=== PATIENT | male | born 1945 ===

== ENCOUNTER 2020-09-26 12:23 | Inpatient (IN) | payer MEDICARE, OTHER, MEDICAID ==
[2020-09-26] MEDS ORDERED: Acetaminophen/Diphenhydramine 500-25 MG Tab PO PRN (16:17)
[2020-09-26] MEDS ORDERED: Nitroglycerin 0.4 MG Tab.SL SL PRN (16:17)
[2020-09-26] MEDS ORDERED: Albuterol HFA 18 Gm Inhaler INH PRN (16:43)
[2020-09-26] MEDS: OMEPRAZOLE 40 MG PO SCH (17:29)
[2020-09-26] MEDS: Furosemide 20 MG Tab (OWN SUPPLY) PO SCH (17:30)
[2020-09-26] MEDS: CARVEDILOL 12.5 MG PO SCH (17:30)
[2020-09-26] MEDS: Albuterol/Ipratropium 3.0-0.5 MG/3 ML Neb Soln NEB SCH (20:25)
[2020-09-26] MEDS: Cefuroxime 250 MG Tab PO SCH (20:25)
[2020-09-26] MEDS: Calcium Carbonate 750 MG Tab.Chew PO SCH (20:26)
[2020-09-26] MEDS: BUDESONIDE 0.5 MG/2 ML NEB SCH (20:32)
[2020-09-26] MEDS: FORMOTEROL 20 MCG/2 ML SCH (20:33)
--- NOTE | 2020-09-26 23:34 | HP ---
CHIEF COMPLAINT: Post hospital admission for weakness. HISTORY OF PRESENT ILLNESS: This 75 year-old male with 2 hospitalizations in the last couple of weeks was admitted originally on the through the testing positive for COVID on the , but felt to be asymptomatic with his shortness of breath attributed more to acute anemia and likely lung cancer. The patient's blood thinners were discontinued. He was discharged home, but he kept falling, and then he was readmitted on the , and discharged today with acute respiratory failure with hypoxia. He is chronically on at least 2 L of oxygen at home in exacerbation of COPD. The patient was treated with steroids and nebs. He is back down to just 4 L of oxygen. He is not having any worsening of cough. No chest pain. He does have a lung mass for which he has refused biopsy, but PET scan the end of June showed a 2.5 x 1.7 cm mass with additional mass concerning for malignancy. This is in the right lower lobe. The patient did receive a unit of blood yesterday. His hemoglobin was in the 6 range. Today, it was 8.9. He has not noticed any blood in his stools. He was not felt to be a candidate for EGD or colonoscopy due to his health conditions and respiratory status. The patient otherwise was considering hospice. His son is at the bedside for our conversation. ALLERGIES: Include codeine, Nicorette, and Valium. MEDICATIONS: Include lisinopril 5 mg daily; Coreg 6.25 b.i.d.; Ceftin 500 twice daily for 1 more day; prednisone 20 mg for 5 days, 10 for 5 days, then 5 for the next 2 days, then 2.5 daily, which he is on chronically; Prilosec 40 mg twice daily; digoxin 0.125 daily; Lasix 20 mg b.i.d.; nitro as needed for chest pain; Crestor 20 mg at bedtime; albuterol inhaler as needed; DuoNebs; Pulmicort neb; Perforomist neb; Coricidin; Aspercreme; Tylenol p.r.n.; oxygen 2 to 3 L chronically; milk of magnesia every other day; multivitamins. PAST MEDICAL HISTORY: AFib, chronic; end-stage COPD, likely lung cancer, declining further workup and treatment; heart failure, EF 40% back in 06/2020, no acute exacerbation; chronic kidney disease stage 3; chronic hypoxic respiratory failure; history of CO2 narcosis on a ventilator at night; coronary artery disease; [place] back in 1999, reported to have 3 cardioverter defibrillators implanted with ischemic cardiomyopathy; essential hypertension; history of pulmonary embolism remotely after a foot surgery; previous smoking; TIA. PAST SURGICAL HISTORY: The patient has surgically had left foot surgery for fracture, eye surgery, colonoscopies in the past, ICD implanted. FAMILY HISTORY: Parents are . SOCIAL HISTORY: The patient is . He has I believe 5 children. One son is present in the room. REVIEW OF SYSTEMS: General: The patient does feel weak. He feels like the prednisone makes him worse in weakness terms. Appears that his weight has basically stayed the same within a couple of pounds from last fall. HEENT: No trouble swallowing. No sore throat. Cardiac: No chest pain. Respiratory: He has had chronic cough and shortness of breath. No worsening there. Otherwise, all systems reviewed and found to be negative unless otherwise stated. PHYSICAL EXAMINATION: Vital Signs: His temperature 97.8, original pulse 103, repeat for 64, blood pressure 119/62, respiratory rate 20, and O2 of 91% on 4 L. General: He is in no acute distress. Heart: Irregularly irregular. Lungs: His lung sounds are decreased with rhonchi throughout, but no wheezing appreciated. Abdomen: Nondistended. Extremities: Warm and dry. He does have 1+ edema at the ankles, but he is declining support hose. Mental Status: He is alert and oriented x3. He is talking about going on a bear hunting trip in [place]. LABORATORY WORK: Again was reviewed from [place] today. His hemoglobin was up to 8.9 after transfusion yesterday. White count 12.4, platelets 281. Creatinine was 0.9, calcium 7.9. No albumin today. Suspect that is probably quite low, although last one was 3.6 earlier this week. ASSESSMENT: 1. Coronavirus disease 2019 infection. Really no increase or change in his symptoms. Admitted more for gastrointestinal bleed, but with recent chronic obstructive pulmonary disease exacerbation, he does not realize or know when his exposure might be. He is 10 days out from his positive test. I think we can take him out of isolation tomorrow. 2. Hypocalcemia. I am going to place him on some Tums twice daily. I think this would also help with any stomach discomfort. 3. Acute on chronic anemia. Source of his gastrointestinal bleeding is thought to be gastrointestinal, but not a candidate for further workup. Discussed with the patient we will not do any routine lab work. Could consider possible transfusion, but would not continue to do routine transfusions given goals of care comfort. The patient understands. Actually, he told me he was surprised they gave him blood in [place]. 4. Atrial fibrillation. Seems to be rate controlled. We will continue the current management. 5. Chronic obstructive pulmonary disease exacerbation. He will finish the Ceftin and his prednisone taper. 6. Coronary artery disease, ischemic cardiomyopathy. Implantable cardioverter defibrillator is in place. We will contact [facility] to see if any changes need to be made for that. 7. Chronic systolic heart failure, ejection fraction 40%. We will continue his Lasix. 8. Also reported transient ischemic attacks. He is now off anticoagulation. He is high risk for a stroke given his cancer and atrial fibrillation. Again, goals of care comfort. The patient is here for palliative cares. 9. Weakness and deconditioning. The patient is considering trying a PT trial. Decision with him and his son was to wait until next week. PLAN: The patient is admitted for skilled cares to assist with activities of daily living, bed transfers, bathing, eating as he needs. Anticipate his condition could worsen and he could pass away. Depending on how things go, discussed with his son just take it day to day. It could be months or if things change quickly. He understands and does not feel he can return home due to his weakness and frequent falls. DVT prophylaxis. The patient is not on any given his end of life and comfort care status. He is a code level 5, comfort cares. MKA: 09/26/2020 18:37:54 MODL: 09/26/2020 23:24:33 /[id number] MTDD
[2020-09-27] MEDS: OMEPRAZOLE 40 MG PO SCH ×2 (06:09→16:42)
[2020-09-27] MEDS: FORMOTEROL 20 MCG/2 ML SCH ×2 (06:11→20:08)
[2020-09-27] MEDS ORDERED: predniSONE 10 MG Tab PO SCH (08:00)
--- OUTSIDE RECORDS SUMMARY | 2020-09-27 08:49 | XMSREPORT ---
:1945 Author Organization [facility] Address [address] [place] [address] [address] [place] [address] Care Team Providers Name Role Phone Alisson Maynard PA-C Primary Care Provider Alisson Maynard PA-C Attributed Provider Emma Galeas MD Unavailable Alisson Maynard PA-C Home Health Attending [facility] Unavailable Reason for Visit Reason Comments Shortness of Breath Pt called EMS for increased SOB. EMS states oxygen saturation was 79% on 5L. Pt has lung cance r and 5L is his baseline. Pt on 98% on 10L on arrival. Auth/Cert Status Reason Specialty Diagnoses / Procedures Referred By Lydia dacosta Referred To Contact Encounter Details Date Type Department Care Team Description 09/22/2020 - Hospital Encounter [facility] n[facility] Department [address] [place] [address] [phone] Acute respiratory 09/26/2020 [place] Eliceo Rubio MD [address] [place] [address] [phone] failure with [place] Hodgson, Raoul Hidalgo MD [address] [place] [address] [phone] hypoxia (HCC) [address] Vanita García MD [address] [place] [address] [phone] [place] [address] Allergies Active Allergy Reactions Severity Noted Date Comments Codeine Nausea and Vomiting 06/26/2013 Commit Nausea and Vomiting 12/31/2018 Valium Nausea and Vomiting 06/26/2013 documented as of this encounter (statuses as of 09/26/2020) Medications Medication Sig Dispensed Refills Start End Status Date Date Multiple Take 1 tablet by 0 Act peyton Vitamins-Minerals mouth 1 time per (MULTIVITAMIN day THERAPEUTIC WITH MINERALS) tablet magnesium hydroxide Take 30 mL by 0 Active (MILK OF MAGNESIA) mouth Every 400 mg/5 mL oral other day suspension Oxygen therapy Inhale 2-3 L/min 0 Active orally continuously. acetaminophen Take 2 tablets 0 A ctive (TYLENOL) 500 mg (1,000 mg) by 9 tabletIndications: mouth Every 8 Closed fracture of hours as needed multiple ribs of for mild pain or both sides, initial moderate pain encounter diphenhydrAMINE-nasir Take 0.5 tablets 0 Active taminophen (TYLENOL by mouth at PM) 25-500 mg bedtime as tablet needed for insomnia DM-APAP-CPM Take 1 tablet by 0 A ctive (CORICIDIN HBP) mouth at bedtime 10-325-2 MG TABS as needed (congestion) trolamine Apply to neck 0 Active salicylate PRN aches (ASPERCREME) 10 % (topically) up CREA to 4 times daily digoxin (LANOXIN) Take 1 tablet 90 tablet 4 Active 0.125 mg (0.125 mg) by 0 021 tabletIndications: mouth 1 time per Chronic a-fib (HCC) day furosemide (LASIX) Take 1 tablet 180 tablet 4 Active 20 mg (20 mg) by mouth 0 021 tabletIndications: 2 times a day Chronic systolic Hold for SBP CHF (congestive less than 90 heart failure) (HCC) nitroglycerin Dissolve 1 30 tablet 4 Activ e (NITROSTAT) 0.4 mg tablet (0.4 mg) 0 sublingual under the tongue tabletIndications: Every 5 minutes Chest pain, as needed for unspecified type chest pain (up to 3 doses) rosuvastatin Take 1 tablet 90 tablet 4 Act peyton (CRESTOR) 20 mg (20 mg) by mouth 0 021 tabletIndications: every night at Chest pain, bedtime unspecified type albuterol HFA Inhale 2 puffs 3 g 4 A ctive (PROVENTIL,PROAIR,V orally Every 4 0 021 ENTOLIN) 108 (90 hours as needed Base) MCG/ACT for shortness of inhalerIndications: breath, wheezing COPD, very severe or cough Shake (HCC) well before using. albuterol-ipratropi Inhale 1 270 mL 4 Active um (DUO-NEB) unit-dose (3 mL) 0 021 2.5-0.5 mg/3 mL by nebulization inhalation every night at solutionIndications bedtime : COPD, very severe (HCC) budesonide Inhale 1 nebule 360 mL 4 Act peyton (PULMICORT) 0.5 (0.5 mg) by 0 021 mg/2 mL inhalation nebulization 2 solutionIndications times a day : COPD, very severe Rinse mouth (HCC) after use. formoterol Inhale 1 nebule 360 mL 4 Act peyton (PERFOROMIST) 20 (20 mcg) by 0 021 MCG/2ML inhalation nebulization 2 solutionIndications times a day : COPD, very severe (HCC) omeprazole Take 1 capsule 90 capsule 4 Act peyton (PRILOSEC) 40 mg (40 mg) by mouth 1 capsuleIndications: 2 times a day On continuous oral before meals anticoagulation ATTENTION: Please mail these to Monae olmstead. Thank you!!!!!!!!!!!!! !!!!!!!! lisinopril Take 1 tablet (5 90 tablet 4 Ac tive (PRINIVIL, ZESTRIL) mg) by mouth 1 1 022 5 mg time per day tabletIndications: Chronic systolic CHF (congestive heart failure) ([facility]) carVEDilol (COREG) Take 1 tablet 180 tablet 4 Active 6.25 mg (6.25 mg) by 1 022 tabletIndications: mouth 2 times a Chronic systolic day with meals CHF (congestive heart failure) ([facility]) cefuroxime (CEFTIN) Take 1 tablet 2 tablet 0 Active 500 mg (500 mg) by 1 021 tabletIndications: mouth 2 times a Acute respiratory day for 2 doses failure with hypoxia ([facility]) predniSONE 10 mg 20 mg daily for 0 Active tabletIndications: 5 days then 10 1 Acute respiratory mg daily for failure with next 5 days then hypoxia ([facility]) 5 mg daily for next 2 days then continue on 2.5 mg daily - home dose senior care carVEDilol (COREG) Take 1.5 tablets 270 tablet 4 26/09 Discontinued 12.5 mg (18.75 mg) by 0 021 (Stop Taking at tabletIndications: mouth 2 times a Discharge) Chronic a-fib day with meals ([facility]), Chronic For BP systolic CHF (congestive heart failure) ([facility]), Essential hypertension lisinopril Take 1 tablet 180 tablet 3 Disc ontinued (PRINIVIL, ZESTRIL) (10 mg) by mouth 0 021 (Stop Taking at 10 mg 2 times a day Discha rge) tabletIndications: Essential hypertension predniSONE 5 mg Take 0.5 tablets 45 tablet 4 Discontinued tabletIndications: (2.5 mg) by 0 021 (Stop Taking at Chronic systolic mouth 1 time per Discharge) CHF (congestive day heart failure) ([facility]), COPD, very severe ([facility]) documented as of this encounter (statuses as of 09/26/2020) Active Problems Problem Noted Date Acute exacerbation of chronic obstructive pulmonary di sease (COPD) 09/22/2020 GI bleed 09/16/2020 Acute respiratory failure with hypoxia 09/16/2020 Cancer of lung 09/16/2020 Chronic respiratory failure 09/16/2020 Pneumonia due to COVID-19 virus 09/16/2020 A-fib 06/20/2020 Chest pain 06/20/2020 On apixaban therapy 05/27/2020 Transient speech disturbance 05/24/2020 Transient visual disturbance, right 05/24/2020 Paroxysmal atrial fibrillation 04/05/2019 Acute blood loss anemia 04/01/2019 CO2 narcosis 04/01/2019 CKD (chronic kidney disease) stage 3, GFR 30-59 ml/min 04/01/2019 History of colon polyps 06/29/2018 Chronic a-fib 06/15/2018 Hypokalemia 06/15/2018 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 Treated in [place]. He de veloped ischemic cardiomyopathy after that. He has had a total of 3 cardioverter-def ibrillators implanted. The most recent was placed in 2014 in [place]. Disorder of lipoid metabolism 02/28/2007 Essential hypertension 02/28/2007 documented as of this encounter (statuses as of 09/26/2020) Resolved Problems Problem Noted Date Resolved Date Acute urinary retention 01/01/2019 04/01/2019 Hallucinations 12/31/2018 04/05/2019 Closed fracture of multiple ribs of right side with routine 08/19/2017 04/01/2019 healing Fall 08/19/2017 04/01/2019 SOB (shortness of breath) 08/19/2017 04/01/2019 Closed fracture of acromial end of right clavicle 08/19/2017 04/01/2019 Closed fracture of right wrist 08/19/2017 9 Trauma 08/18/2017 04/01/2019 Typical atrial flutter 07/07/2017 07/02/2020 Closed right humeral fracture 07/12/2013 09/30/2016 Alcohol abuse 07/05/2013 04/10/2019 documented as of this encounter (statuses as of 09/26/2020) Immunizations Name Administration Dates Next Due FLU VACCINE HIGH DOSE 65YR+(Fluzone) 05/15/2020 Influenza Vaccine 06/25/2017 Influenza Vaccine,unspecified 05/23/2019, 05/18/2018, 2016 Moderna COVID-19 Vaccine 09/11/2020 Pneumococcal Conj PCV13 09/19/2018 Pneumococcal Polysaccharide PPSV23 06/25/2017 documented as of this encounter Social History Tobacco Use Types Packs/Day Years Used Date Former Smoker Cigarettes 1 40 08/02/1965 - 2 017 Smokeless Tobacco: Former User Chew Q uit: 08/2009 Tobacco Cessation: Counseling Given: No Alcohol Use Drinks/Week oz/Week Comments Yes 1 Cans of beer 1.0 " I don't drink much anymore" Alcohol Habits Answer Date Recorded How often do you have a drink containing alcohol? Monthly or less 09/17/2020 How many drinks containing alcohol do you have on a 1 or 2 09/17/2020 typical day when you are drinking? How often do you have six or more drinks on one Less than mo nthly 09/17/2020 occasion? Physical Activity Answer Date Recorded On average, how many days per week do you engage in moderate to 3 days 08/25/2019 strenuous exercise (like walking fast, running, jogging, dancing, swimming, biking, or other activities that cause a light or heavy sweat)? On average, how many minutes do you engage in exercise at th is 30 min 08/25/2019 level? Sexually Active Control Partners Comments Not Currently Sex Assigned at Date Recorded Not on file documented as of this encounter Last Filed Vital Signs Vital Sign Reading Time Taken Comments Blood Pressure 87/54 09/26/2020 8:47 AM PROCESS ENGINEERING MANAGER Pulse 68 09/26/2020 8:47 AM PROCESS ENGINEERING MANAGER Temperature 36.7 C (98 F) 09/26/2020 8:47 AM PROCESS ENGINEERING MANAGER Respiratory Rate 19 09/26/2020 8:47 AM PROCESS ENGINEERING MANAGER Oxygen Saturation 98% 09/26/2020 8:47 AM PROCESS ENGINEERING MANAGER Inhaled Oxygen Concentration - - Weight 86.6 kg (191 lb) 09/22/2020 9:00 PM PROCESS ENGINEERING MANAGER Height 170.2 cm (5' 7.01") 09/22/2020 9:00 PM PROCESS ENGINEERING MANAGER Body Mass Index 29.91 09/22/2020 9:00 PM PROCESS ENGINEERING MANAGER documented in this encounter Functional Status Functional Status Response Date of Assessment Is the person deaf or does he/she have No 0 11/03/2017 serious difficulty hearing? Is this person blind or does he/she have Yes - blind in left eye 11/03/2017 difficulty seeing even when wearing glasses? Do you have difficulty with walking, Yes balance, climbing stairs, or had a fall in the last 3 months? Does this person have difficulty dressing Yes 09/23/2020 or bathing? Because of a physical, mental, or Yes 2018 emotional condition; does this person have difficulty doing errands alone such as visiting a doctor's office or shopping? Cognitive Status Response Date of Assessment Because of a physical, mental, or emotional condition; Yes 12/31/2018 does this person have serious difficulty concentrating, remembering, or making decisions? documented as of this encounter Discharge Summaries Not on filedocumented in this encounter Medications at Time of Discharge Medication Sig Dispensed Refills Start Date End Date lisinopril (PRINIVIL, Take 1 tablet (5 mg) 90 tablet 4 09/0310/01/2021 ZESTRIL) 5 mg by mouth 1 time per tabletIndications: day Chronic systolic CHF (congestive heart failure) (HCC) carVEDilol (COREG) 6.25 Take 1 tablet (6.25 180 tablet 4 10/01/2021 mg tabletIndications: mg) by mouth 2 times Chronic systolic CHF a day with meals (congestive heart failure) (HCC) cefuroxime (CEFTIN) 500 Take 1 tablet (500 2 tablet 0 09/0309/27/2020 mg tabletIndications: mg) by mouth 2 times Acute respiratory a day for 2 doses failure with hypoxia (HCC) predniSONE 10 mg 20 mg daily for 5 0 09/26/2020 tabletIndications: Acute days then 10 mg respiratory failure with daily for next 5 hypoxia (HCC) days then 5 mg daily for next 2 days then continue on 2.5 mg daily - 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 Thank you!!!!!!!!!!!!!!!!! !!!! digoxin (LANOXIN) 0.125 Take 1 tablet (0.125 90 tablet 4 07/07/2021 mg tabletIndications: mg) by mouth 1 time Chronic a-fib (HCC) per day furosemide (LASIX) 20 mg Take 1 tablet (20 180 tablet 4 08/201907/07/2021 tabletIndications: mg) by mouth 2 times Chronic systolic CHF a day Hold for SBP (congestive heart less than 90 failure) (HCC) nitroglycerin Dissolve 1 tablet 30 tablet 4 07/02/2020 (NITROSTAT) 0.4 mg (0.4 mg) under the sublingual tongue Every 5 tabletIndications: Chest minutes as needed pain, unspecified type for chest pain (up to 3 doses) rosuvastatin (CRESTOR) Take 1 tablet (20 90 tablet 4 201907/07/2021 20 mg tabletIndications: mg) by mouth every Chest pain, unspecified night at bedtime type albuterol HFA Inhale 2 puffs 3 g 4 07/02/2020 021 (PROVENTIL,PROAIR,VENTOL orally Every 4 hours IN) 108 (90 Base) as needed for MCG/ACT shortness of breath, inhalerIndications: wheezing or cough COPD, very severe (HCC) Shake well before using. albuterol-ipratropium Inhale 1 unit-dose 270 mL 4 201907/07/2021 (DUO-NEB) 2.5-0.5 mg/3 (3 mL) by mL inhalation nebulization every solutionIndications: night at bedtime COPD, very severe (HCC) budesonide (PULMICORT) Inhale 1 nebule (0.5 360 mL 4 08/201907/07/2021 0.5 mg/2 mL inhalation mg) by nebulization solutionIndications: 2 times a day Rinse COPD, very severe (HCC) mouth after use. formoterol (PERFOROMIST) Inhale 1 nebule (20 360 mL 4 07/07/2021 20 MCG/2ML inhalation mcg) by nebulization solutionIndications: 2 times a day COPD, very severe (HCC) diphenhydrAMINE-acetamin Take 0.5 tablets by 0 ophen (TYLENOL PM) mouth at bedtime as 25-500 mg tablet needed for insomnia DM-APAP-CPM (CORICIDIN Take 1 tablet by 0 HBP) 10-325-2 MG TABS mouth at bedtime as needed (congestion) trolamine salicylate Apply to neck PRN 0 (ASPERCREME) 10 % CREA aches (topically) up to 4 times daily acetaminophen (TYLENOL) Take 2 tablets 0 04/21/20 19 500 mg (1,000 mg) by mouth tabletIndications: Every 8 hours as Closed fracture of needed for mild pain multiple ribs of both or moderate pain sides, initial encounter Oxygen therapy Inhale 2-3 L/min 0 orally continuously. magnesium hydroxide Take 30 mL by mouth 0 (MILK OF MAGNESIA) 400 Every other day mg/5 mL oral suspension Multiple Take 1 tablet by 0 Vitamins-Minerals mouth 1 time per day (MULTIVITAMIN THERAPEUTIC WITH MINERALS) tablet documented as of this encounter Progress Notes Vanita García MD - 09/25/2020 1:08 PM CST Hospital Progress Note Sarai Patton is a 75yr old male admitted on 09/22/2020. Assessment / Plan Sarai is a 75-year-old male with long history of nicotine dependence, end-stage COPD, chronic hypoxemic and hypercapnic respiratory failure on 2 to 3 L of oxygen at baseline and astral ventilator at nighttime, congestive heart failure,recently diagnosed with likely stage III lung cancer for which he re fused any diagnostic/treatment modality, recent hospitalization for Covid pneumonia and anemia, was refused EGD and colonoscopy as a poor candidate for sedation/intubation, history of A. fib and PE, currently of apixaban therapy since recent hospitalization, hypertension who was recently discharged from the hospital on 5 L oxygen on 09/20, returned to ER on 09/22 with worsening shortness of breath and acute on chronic hypoxic respiratory failure requiring up to 10 L oxygen There was not much fluctuation from the recent hemoglobin on admission, BNP was actually lower, procalcitonin was unremarkable and patient was admitted for presumed COPD exacerbation and started on Solu-Medrol and nebulizers. Next day he was up to 5 L nasal cannula and felt better. He is also on chronic 2.5 mg prednisone therapy and has been unable to afford Daliresp per previous provider notes. He quit smoking in 2017 and has a 17-fjbe-ccps history. # AOCD - hb 6.9 today - GI evaluated him on recent admission and given that he is very high risk for anaesthesia - endoscopy was reserved only for life threatening bleed - blood transfusion as ordered - fecal occult #Acute on chronic hypoxic and hypercapnic respiratory failure #Recent Covid pneumonia, tested positive on 09/16 #End-stage COPD admitted with acute exacerbation #Chronic systolic and diastolic congestive heart failure #CAD #[id number] history of smoking, quit in 2016 #Presumed diagnosis of stage III lung cancer per radiological imaging. Patient has refused biopsy/treatment - bp fluctuatiions noted- dose of coreg and lisinopril decreased on 09/24 - solumedrol changed to tab prednisone today- patient refused to take it - nebs, RT per COPD protocol Appreciate pulmonary medicine consultation and recommendations Given his recurrent admissions and his desire to not treat his presumed cancer, medical co morbidities, recurrent admissions- palliative care was consulted . Hospice option also discussed with him today Goal clarification meeting was done at bedside by me and Rita CARABALLO palliative care, son JAY on facet in patient's room . CM and RN also co - ordinated by talking to family Code status -DNR Patient and chose to go to [facility] on hospice with no further hospitalizations. All concerns answered dispo- DC to [place] latter today / tomorrow am I spent 40 minutes and greater than 50% of the total time was spent reviewing the patient's chart, examining the patient, discussing plan of care with patient, RN, palliative care Vanita García HPI / History / ROS Shortness of Breath Associated symptoms include cough. Pertinent negatives include no chest pain and no abdominal pain. He is currently on 5 L oxygen at baseline Hb 6.9 , being transfused blood Review of Systems Constitutional: Positive for fatigue. Respiratory: Positive for cough and shortness of breath. Cardiovascular: Negative for chest pain. Gastrointestinal: Negative for abdominal pain. Musculoskeletal: Positive for myalgias. Psychiatric/Behavioral: Negative for agitation. Physical / Results Current Vital Signs Temp: 98 F (36.7 C) BP: 127/62 Weight: 86.6 kg (191 lb) SpO2: 100 % Resp: 19 Pulse: 69 Current BMI (>50 = increased risk): 29.91 O2 Device: NC - cool humidity O2 Flow Rate (L/min): 3 l/min Pain Ratin Physical Exam Cardiovascular: Rate and Rhythm: Normal rate. Pulses: Normal pulses. Pulmonary: Comments: Diminished air entry b/l currently on 5 L NC Abdominal: Palpations: Abdomen is soft. Neurological: Mental Status: He is alert. ita Nunes CNP - 09/25/2020 9:01 AM CST Palliative Medicine Progress Note Sarai Patton is a 75yr old male admitted on 09/22/2020. Seen in follow up. Medical issues: Active Problems Diagnosis Date Noted Acute exacerbation of chronic obstructive pulmonary disease (COPD) ([facility]) 09/22/2020 Acute respiratory failure with hypoxia ([facility]) 09/16/2020 Cancer of lung ([facility]) 09/16/2020 Encounter for Palliative care Z51.5 Does this patient have an active cancer diagnosis? Yes Palliative care services utilized this visit include: Team-based care planning that involves the patient and family, Communication among patients, families, and provider team members, Education about illness and prognosis, Assistance with medical decision making, Continuity of care across a range of clinical settings and services, Psychosocial support for patients and families and Hospice/end of lifecare coordination Palliative Medicine Recommendations: After discussion with patient and family, plan for discharge with hospice to [facility]. Patient declining prednisone due to side effects. Symptoms are managed at this time. If shortness of breath worsens, recommend low dose morphine for air hunger. If becomes agitated/anxious, recommend low dose lorazepam. Palliative Medicine Summary: Recommendations: 1. Goal of care: Transition to hospice care at discharge. 2. Code Status: maintain DNR 3. Surrogate decision maker: Health Care Agents Mala Dennis - Sister (Co-DPOA) Health Care Agent - Sister Not Active Primary (Mobile) Jay Patton 2nd Substitute decision maker First Alternate Health Care Agent - Child Not Active Primary (Mobile) Advanced directive completed and present in electronic medical record? Yes Sarai has decisional participation ability, but certainly not full decisional capacity. Pain: Headache. Used 0 MME (mg oral morphine equivalents) in the past 24 hours (7 AM-7 AM). Recommend continuing with acetaminophen. Symptoms: Shortness of breath has improved. If shortness of breath worsens, recommend low dose morphine for air hunger. If becomes agitated/anxious, recommend low dose lorazepam. 4. Hospice: Yes 5. Readmission to Hospital? no 6. Discharge plan: [facility] in [place] with hospice. 7. Nutrition: For comfort. 8. Spiritual and/or psychosocial support: Media Technician Services available upon request. Follow up Visit: Family present: Jay (son) via video chat. Present from primary team: Dr. García Present from the Palliative Care Team: Rita GAITAN. Focus of the meeting was on goals of care. Topics discussed today include: Medical treatment options as it relates to patient/family goals of care Patient's long-term goals Hospice benefit and eligibility Hospice referral Patient and hourly caregiver support Psychosocial support for patient/family SUBJECTIVE Reviewed medical records and hospital course. History provided by: chart review, child and the patient. Activity - up to chair. Interval HPI: Patient reports feeling somewhat better today. Hgb 6.9 today, one unit of RBCs administered. Possible GI bleed, however, per primary team, unable to perform endoscopy as patient is high risk for anesthesia. He explained that he would like to go home and be comfortable. He appears to be somewhat frustrated about taking steroids due to the negative side effects including visual hallucinations. He has declined further administration of steroids. He reports that he had a goodnights rest. He also reiterated that he does not want treatment for the lung cancer. Palliative Performance Scale (Karnofsky): 50 Patient seen and examined. OBJECTIVE Current Vital Signs Temp: 98.6 F (37 C) BP: 105/69 Pulse: 61 O2 Device: NC - cool humidity O2 Flow Rate (L/min): 3 l/min Resp: 18 Pain Ratin (out of 10) Weight: 86.6 kg (191 lb) SpO2: 99 % Vitals Min/Max Last 24 Hours Vital Signs Min/Max (last 24 hours) Flowsheet Row Name Min Max Temp 97.3 F (36.3 C) 98.6 F (37 C) BP: Systolic 84 126 BP: Diastolic 39 103 Pulse 61 83 Resp 18 22 SpO2 (!) 87 % 100 % O2 Flow Rate (L/min) 3 l/min 4.5 l/min MAP (mm Hg) 58 mm Hg 112 mm Hg Intake and Output Last 24 Hours09/24 0700 - 09/25 0659 In: 1610 Out: 950 Weight: Current Weight: 86.6 kg (191 lb) Lab Results Component Value Date WBC 17.7 (H) 09/25/2020 RBC 2.82 (L) 09/25/2020 HEMOGLOBIN 6.9 (LL) 09/25/2020 HEMATOCRIT 23.8 (L) 09/25/2020 MCV 84.4 09/25/2020 MCH 24.5 (L) 09/25/2020 MCHC 29.0 (L) 09/25/2020 PLTCOUNT 309 09/25/2020 Lab Results Component Value Date ALBUMIN 3.6 09/23/2020 BILITOTAL 0.8 09/22/2020 CA 7.8 (L) 09/25/2020 CL 98 (L) 09/25/2020 CREATSERUM 0.93 09/25/2020 GLUCOSE 142 (H) 09/25/2020 ALKPHOS 68 09/22/2020 POTASSIUM 4.8 09/25/2020 NA 138 09/25/2020 AST 19 09/22/2020 BUN 25 (H) 09/25/2020 PROTEINTOTAL 6.0 09/22/2020 CO2 35 (H) 09/25/2020 ALT 11 09/22/2020 Diagnostics and Labs Relevant diagnostic, laboratory and radiological studies have been reviewed in the Electronic Medical Record. Physical Exam Orientation: Appropriate for age, oriented to person, place and time General Appearance: anxious, chronically ill appearing Chest: mild labored breathing, tachypnea Abdomen: soft, nontender, nondistended Skin: Pale, warm, dry Please page [phone] for any further questions or discussion. Rita Nunes APRN-OIL FIELD RIG BUILDER Palliative Medicine Time: Chart review - 5 minutes Face to face with patient & family (in counseling and family meeting) - 20 minutes Coordination of care - 10 minutes Documentation - 10 minutes Total Time - 45 minutes of which greater than 50% was spent in direct contact counseling patient/family and coordination of care. *At least part of this note was generated using voice recognition software. Inadvertent word errors may have occurred such as homophones, homonyms, and heteronyms, which were not recognized during proofreading process. ESS ENGINEERING MANAGER Vanita García MD - 09/24/2020 4:22 PM CST Hospital Progress Note Sarai Patton is a 75yr old male admitted on 09/22/2020. Assessment / Plan Sarai is a 75-year-old male with long history of nicotine dependence, end-stage COPD, chronic hypoxemic and hypercapnic respiratory failure on 2 to 3 L of oxygen at baseline and astral ventilator at nighttime, congestive heart failure,recently diagnosed with likely stage III lung cancer for which he re fused any diagnostic/treatment modality, recent hospitalization for Covid pneumonia and anemia, was refused EGD and colonoscopy as a poor candidate for sedation/intubation, history of A. fib and PE, currently of apixaban therapy since recent hospitalization, hypertension who was recently discharged from the hospital on 5 L oxygen on 09/20, returned to ER on 09/22 with worsening shortness of breath and acute on chronic hypoxic respiratory failure requiring up to 10 L oxygen There was not much fluctuation from the recent hemoglobin, BNP was actually lower, procalcitonin wasunremarkable and patient was admitted for presumed COPD exacerbation and started on Solu-Medrol and nebulizers. Next day he was up to 5 L nasal cannula and felt better. He is also on chronic 2.5 mg prednisone therapy and has been unable to afford Daliresp per previous provider notes. He quit smoking in 2017 and has a [id number] history. #Acute on chronic hypoxic and hypercapnic respiratory failure #Recent Covid pneumonia, tested positive on 09/16 #End-stage COPD admitted with acute exacerbation #Chronic systolic and diastolic congestive heart failure #CAD #[id number] history of smoking, quit in 2017 #Presumed diagnosis of stage III lung cancer per radiological imaging. Patient has refused biopsy/treatment Appreciate pulmonary medicine consultation and recommendations Given his recurrent admissions and his desire to not treat his presumed cancer, medical co morbidities, recurrent admissions- palliative care consulted . Hospice option also discussed with him today Code status discussed- agreed to change from mod DNR TO DNR - bp fluctuatiions noted- dose of coreg and lisinopril decreased - solumedrol changed to tab prednisone from tomorrow - nebs, RT per COPD protocol I spent 35 minutes and greater than 50% of the total time was spent reviewing the patient's chart, examining the patient, discussing plan of care with patient, RN, palliative care Vanita García HPI / History / ROS Shortness of Breath Associated symptoms include cough. Pertinent negatives include no chest pain and no abdominal pain. He is currently on 5 L oxygen at baseline bp has fluctuated today Intermittent agitation noted- apologizes right away Review of Systems Constitutional: Positive for fatigue. Respiratory: Positive for cough and shortness of breath. Cardiovascular: Negative for chest pain. Gastrointestinal: Negative for abdominal pain. Musculoskeletal: Positive for myalgias. Psychiatric/Behavioral: Negative for agitation. Physical / Results Current Vital Signs Temp: 98 F (36.7 C) BP: 127/62 Weight: 86.6 kg (191 lb) SpO2: 100 % Resp: 19 Pulse: 69 Current BMI (>50 = increased risk): 29.91 O2 Device: NC - cool humidity O2 Flow Rate (L/min): 3 l/min Pain Ratin Physical Exam Cardiovascular: Rate and Rhythm: Normal rate. Pulses: Normal pulses. Pulmonary: Comments: Diminished air entry b/l currently on 5 L NC Abdominal: Palpations: Abdomen is soft. Neurological: Mental Status: He is alert. anita García MD - 09/23/2020 8:01 PM CST Hospital Progress Note Sarai Patton is a 75yr old male admitted on 09/22/2020. Assessment / Plan Sarai is a 75-year-old male with long history of nicotine dependence, end-stage COPD, chronic hypoxemic and hypercapnic respiratory failure on 2 to 3 L of oxygen at baseline and astral ventilator at nighttime, congestive heart failure,recently diagnosed with likely stage III lung cancer for which he re fused any diagnostic/treatment modality, recent hospitalization for Covid pneumonia and anemia, was refused EGD and colonoscopy as a poor candidate for sedation/intubation, history of A. fib and PE, currently of apixaban therapy since recent hospitalization, hypertension who was recently discharged from the hospital on 5 L oxygen on 09/20, returned to ER on 09/22 with worsening shortness of breath and acute on chronic hypoxic respiratory failure requiring up to 10 L oxygen There was not much fluctuation from the recent hemoglobin, BNP was actually lower, procalcitonin wasunremarkable and patient was admitted for presumed COPD exacerbation and started on Solu-Medrol and nebulizers. Next day he was up to 5 L nasal cannula and felt better. He is also on chronic 2.5 mg prednisone therapy and has been unable to afford Daliresp per previous provider notes. He quit smoking in 2017 and has a [id number] history. #Acute on chronic hypoxic and hypercapnic respiratory failure #Recent Covid pneumonia, tested positive on 09/16 #End-stage COPD admitted with acute exacerbation #Chronic systolic and diastolic congestive heart failure #CAD #[id number] history of smoking, quit in 2016 #Presumed diagnosis of stage III lung cancer per radiological imaging. Patient has refused biopsy/treatment Given his recurrent admissions and his desire to not treat his presumed cancer, I will consult pulmonary medicine to give their opinion but if they agree will consider palliative/hospice option CODE STATUS was discussed in detail with the patient with his modified DNR. He will think about it We will continue with the current plan of care today HPI / History / ROS HPI He is currently on 5 L oxygen at baseline States that he lives alone and is feeling better here on higher oxygen and nebulizer treatment in the nursing care Review of Systems Constitutional: Positive for fatigue. Respiratory: Positive for cough and shortness of breath. Cardiovascular: Negative for chest pain. Gastrointestinal: Negative for abdominal pain. Musculoskeletal: Positive for myalgias. Psychiatric/Behavioral: Negative for agitation. Physical / Results Current Vital Signs Temp: 98 F (36.7 C) BP: 127/62 Weight: 86.6 kg (191 lb) SpO2: 100 % Resp: 19 Pulse: 69 Current BMI (>50 = increased risk): 29.91 O2 Device: NC - cool humidity O2 Flow Rate (L/min): 3 l/min Pain Ratin Physical Exam Cardiovascular: Rate and Rhythm: Normal rate. Pulses: Normal pulses. Pulmonary: Comments: Diminished air entry b/l currently on 6 L NC Abdominal: Palpations: Abdomen is soft. Neurological: Mental Status: He is alert. Yareli Bustamante, PHARM D - 09/23/2020 9:21 AM CST 09/23/2020 9:22 AM PROCESS ENGINEERING MANAGER - Patient was seen by pharmacy. HOME MEDICATIONS have been reconciled and updated to match the patient's home usage. Medications added: None Medications removed: None Medications changed: None Prior to Admission Medications Prescriptions Last Dose Informant Patient Reported? Taking? DM-APAP-CPM (CORICIDIN HBP) 10-325-2 MG TABS Unknown at Unknown time Self Yes Yes Sig: Take 1 tablet by mouth at bedtime as needed (congestion) Multiple Vitamins-Minerals (MULTIVITAMIN THERAPEUTIC WITH MINERALS) tablet 09/21/2020 at AM Self Yes Yes Sig: Take 1 tablet by mouth 1 time per day Oxygen therapy Unknown at Unknown time Self Yes Yes Sig: Inhale 2-3 L/min orally continuously. acetaminophen (TYLENOL) 500 mg tablet Unknown at Unknown time Self No Yes Sig: Take 2 tablets (1,000 mg) by mouth Every 8 hours as needed for mild pain or moderate pain albuterol HFA (PROVENTIL,PROAIR,VENTOLIN) 108 (90 Base) MCG/ACT inhaler Unknown at Unknown time SelfNo Yes Sig: Inhale 2 puffs orally Every 4 hours as needed for shortness of breath, wheezing or cough Shake well before using. albuterol-ipratropium (DUO-NEB) 2.5-0.5 mg/3 mL inhalation solution 09/23/2020 at Unknown time Self No Yes Sig: Inhale 1 unit-dose (3 mL) by nebulization every night at bedtime budesonide (PULMICORT) 0.5 mg/2 mL inhalation solution 09/22/2020 at Afternoon Self No Yes Sig: Inhale 1 nebule (0.5 mg) by nebulization 2 times a day Rinse mouth after use. carVEDilol (COREG) 12.5 mg tablet 09/22/2020 at Afternoon Self No Yes Sig: Take 1.5 tablets (18.75 mg) by mouth 2 times a day with meals For BP digoxin (LANOXIN) 0.125 mg tablet 09/21/2020 at AM Self No Yes Sig: Take 1 tablet (0.125 mg) by mouth 1 time per day diphenhydrAMINE-acetaminophen (TYLENOL PM) 25-500 mg tablet Unknown at Unknown time Self Yes Yes Sig: Take 0.5 tablets by mouth at bedtime as needed for insomnia formoterol (PERFOROMIST) 20 MCG/2ML inhalation solution 09/21/2020 at PM Self No Yes Sig: Inhale 1 nebule (20 mcg) by nebulization 2 times a day furosemide (LASIX) 20 mg tablet 09/21/2020 at Afternoon Self No Yes Sig: Take 1 tablet (20 mg) by mouth 2 times a day Hold for SBP less than 90 lisinopril (PRINIVIL, ZESTRIL) 10 mg tablet 09/21/2020 at PM Self No Yes Sig: Take 1 tablet (10 mg) by mouth 2 times a day magnesium hydroxide (MILK OF MAGNESIA) 400 mg/5 mL oral suspension 09/21/2020 at AM Self Yes Yes Sig: Take 30 mL by mouth Every other day nitroglycerin (NITROSTAT) 0.4 mg sublingual tablet Greater than 1 Month at Unknown time Self No Yes Sig: Dissolve 1 tablet (0.4 mg) under the tongue Every 5 minutes as needed for chest pain (up to 3 doses) omeprazole (PRILOSEC) 40 mg capsule 09/22/2020 at Afternoon Self No Yes Sig: Take 1 capsule (40 mg) by mouth 2 times a day before meals ATTENTION: Please mail [facility] to [facility]. Thank you!!!!!!!!!!!!!!!!!!!!! predniSONE 5 mg tablet Past Week at Unknown time Self No Yes Sig: Take 0.5 tablets (2.5 mg) by mouth 1 time per day rosuvastatin (CRESTOR) 20 mg tablet Past Week at Unknown time Self No Yes Sig: Take 1 tablet (20 mg) by mouth every night at bedtime trolamine salicylate (ASPERCREME) 10 % CREA Unknown at Unknown time Self Yes Yes Sig: Apply to neck PRN aches (topically) up to 4 times daily Facility-Administered Medications: None Yareli Prabhu, PHARM D ESS ENGINEERING MANAGER documented in this encounter H&P Notes Raoul Hodgson MD - 09/22/2020 9:39 PM CST Internal Medicine Hospital History and Physical Patient Name: Sarai Patton Today's Date: 09/22/2020 CSN: [id number] Impression / Plan 1. Acute hypoxic respiratory failure superimposed upon Rondec hypoxic and hypercapnic respiratory failure, acute respiratory failure cause unclear, I wonder if it is due to worsening lung tumor burdenversus possible COPD exacerbation 2. Advanced lung cancer, explanation below, no tissue diagnosis yet, has not had any treatment 3. Likely COPD exacerbation 4. Chronic hypoxic and hypercapnic respiratory failure due to severe COPD and lung cancer --Really no sign of pneumonia whatsoever. Certainly, no sign of pneumonia from COVID. Therefore, no specific treatment for those issues. He was put in the special care unit due to his positive test several days ago. I did treat him for COPD exacerbation with scheduled nebulizers for now. I removed his small dose chronic prednisone, Solu-Medrol for the time being. Ceftin for COPD exacerbation. --No clear sign of fluid overload. I'm not sure how much improvement he will get. It may be going downhill from his lung cancer and may have to look more at palliative care, depending how he does. Chronic conditions: --Atrial fibrillation: Rate controlled for the time being. I did order the carvedilol but with holding parameters due to his hypotension. Continue digoxin. --Essential hypertension: I did order lisinopril but with holding parameters --Hyperlipidemia: Continue rosuvastatin --GERD: Continue omeprazole Admission status: Inpatient, expect at least 2 midnights for severe chronic issues, severe acute presentation Modified DNR, no intubation DVT prophylaxis: SCDs for now given recent likely GI bleed and drop in hemoglobin. Certainly high risk given his past history and cancer but for now we will just observe. HPI 75-year-old male who presented to emergency room due to acute on chronic hypoxia. Has what appears to be very severe COPD. Previous hospitalist notes say he is on 2 L of oxygen at home. He is somewhat drowsy and fatigued but says he normally is on 3-4 L. At any rate, emergency medical services were called today and said he was on 5 L. He was just admitted for shortness of breath. He was found at that time, which was about a week ago, to be positive for COVID 19. So, he was admitted to the special care unit. From reviewing those notes, it appears that they eventually felt that his hypoxia was not really due to this infection. It seemed like he had some chronic anemia that was worsening acutely and his oxygenation improved with a unit transfusion of packed red blood cells. There was concern for GI bleed but then his stools normalize. He was seen by GI but he was felt to be extremely high risk and, as thinks it stabilize, they held off in favor of further monitoring. He does not give awhole lot a history but makes it sound like his breathing got worse recently. He had previously been on anticoagulation prior to that previous admission for what seems to be remote history of pulmonary embolus. In the ER today, he had CT angiogram of the chest which did not show pulmonary embolus orany sign of pneumonia whatsoever. He does also have lung cancer. He has been seen for this and discuss with pulmonology and then saw a radiation oncology the end of July. He was adamantly against surgical procedure for biopsy because of high risk and they did talk to him about possible option of radiation without having a clear tissue sample but he apparently was hesitant about this and so they were going to follow-up with him. Given IV steroids and nebulizer treatment in the emergency room. His hemoglobin was basically stable compared to his previous hospital discharge. No other really significant or new/abnormal findings compared to previous. 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 Personal history of PE (pulmonary embolism) COPD, very severe (HCC) Hematuria Angiomyolipoma of right kidney Chronic a-fib (HCC) Hypokalemia History of colon polyps Acute blood loss anemia CO2 narcosis CKD (chronic kidney disease) stage 3, GFR 30-59 ml/min Paroxysmal atrial fibrillation (HCC) Transient speech disturbance Transient visual disturbance, right On apixaban therapy A-fib (HCC) Chest pain GI bleed Acute respiratory failure with hypoxia (HCC) Cancer of lung (HCC) Chronic respiratory failure (HCC) Pneumonia due to COVID-19 virus Acute exacerbation of chronic obstructive pulmonary disease (COPD) (HCC) Medications No current facility-administered medications on file prior to encounter. Current Outpatient Medications on File Prior to Encounter Medication Sig Dispense Refill omeprazole (PRILOSEC) 40 mg capsule Take 1 capsule (40 mg) by mouth 2 times a day before meals ATTENTION: Please mail these to [facility]. Thank you!!!!!!!!!!!!!!!!!!!!! 90 capsule 4 carVEDilol (COREG) 12.5 mg tablet Take 1.5 tablets (18.75 mg) by mouth 2 times a day with meals For BP 270 tablet 4 digoxin (LANOXIN) 0.125 mg tablet Take 1 tablet (0.125 mg) by mouth 1 time per day 90 tablet 4 furosemide (LASIX) 20 mg tablet Take 1 tablet (20 mg) by mouth 2 times a day Hold for SBP less than 90 180 tablet 4 lisinopril (PRINIVIL, ZESTRIL) 10 mg tablet Take 1 tablet (10 mg) by mouth 2 times a day 180 tablet 3 nitroglycerin (NITROSTAT) 0.4 mg sublingual tablet Dissolve 1 tablet (0.4 mg) under the tongue Every 5 minutes as needed for chest pain (up to 3 doses) 30 tablet 4 predniSONE 5 mg tablet Take 0.5 tablets (2.5 mg) by mouth 1 time per day 45 tablet 4 rosuvastatin (CRESTOR) 20 mg tablet Take 1 tablet (20 mg) by mouth every night at bedtime 90 tablet 4 albuterol HFA (PROVENTIL,PROAIR,VENTOLIN) 108 (90 Base) MCG/ACT inhaler Inhale 2 puffs orally Every 4 hours as needed for shortness of breath, wheezing or cough Shake well before using. 3 g 4 albuterol-ipratropium (DUO-NEB) 2.5-0.5 mg/3 mL inhalation solution Inhale 1 unit-dose (3 mL) bynebulization every night at bedtime 270 mL 4 budesonide (PULMICORT) 0.5 mg/2 mL inhalation solution Inhale 1 nebule (0.5 mg) by nebulization 2 times a day Rinse mouth after use. 360 mL 4 formoterol (PERFOROMIST) 20 MCG/2ML inhalation solution Inhale 1 nebule (20 mcg) by nebulization2 times a day 360 mL 4 diphenhydrAMINE-acetaminophen (TYLENOL PM) 25-500 mg tablet Take 0.5 tablets by mouth at bedtimeas needed for insomnia DM-APAP-CPM (CORICIDIN HBP) 10-325-2 MG TABS Take 1 tablet by mouth at bedtime as needed (congestion) trolamine salicylate (ASPERCREME) 10 % CREA Apply to neck PRN aches (topically) up to 4 times daily acetaminophen (TYLENOL) 500 mg tablet Take 2 tablets (1,000 mg) by mouth Every 8 hours as neededfor mild pain or moderate pain Oxygen therapy Inhale 2-3 L/min orally continuously. magnesium hydroxide (MILK OF MAGNESIA) 400 mg/5 mL oral suspension Take 30 mL by mouth Every other day Multiple Vitamins-Minerals (MULTIVITAMIN THERAPEUTIC WITH MINERALS) tablet Take 1 tablet by mouth 1 time per day Allergies Allergies Allergen Reactions Codeine Nausea and Vomiting Nicorette [Commit] Nausea and Vomiting Valium Nausea and Vomiting Medical / Surgical History Past Medical History: Diagnosis Date Alcohol abuse 07/05/2013 Allergic state 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 Incidental finding 1.0 cm right renal mass on CT 08/18/17 after trauma Automatic implantable cardioverter-defibrillator in situ 02/28/2007 Brugada syndrome Cardiac arrest (HCC) Chronic atrial fibrillation (HCC) Chronic systolic CHF (congestive heart failure) ([facility]) 09/30/2016 Closed fracture of acromial end of right clavicle with routine healing Closed fracture of multiple ribs of right side with routine healing Closed fracture of right wrist Closed right humeral fracture 07/12/2013 Clotting disorder (HCC) COPD (chronic obstructive pulmonary disease) (HCC) Coronary atherosclerosis 02/28/2007 [place] in 2004. Treated in [place]. He developed ischemic cardiomyopathy after that. He has had a total of 3 cardioverter-defibrillators implanted. The most recent was placed in 2014 in [place]. Essential hypertension 02/28/2007 Glaucoma Hallucinations Heart murmur Hematuria Myocardial infarction (HCC) Normocytic anemia 04/01/2019 Osteoporosis Pulmonary embolism (HCC) 1982, occurred after trauma to the left foot that required surgical intervention Renal mass, right Smoker 07/05/2013 SOB (shortness of breath) Trauma Typical atrial flutter (HCC) Past Surgical History: Procedure Laterality Date COLONOSCOPY EYE SURGERY FOOT SURGERY Left FRACTURE SURGERY ICD IMPLANT REGISTERED CLIENT ASSOCIATE Social History Social History Socioeconomic History Marital status: Spouse name: Not on file Number of children: Not on file Years of education: Not on file Highest education level: Not on file Occupational History Not on file Social Needs Financial resource strain: Patient refused Food insecurity Worry: Patient refused Inability: Patient refused Transportation needs Medical: Patient refused Non-medical: Patient refused Tobacco Use Smoking status: Former Smoker Packs/day: 1.00 Years: 40.00 Pack years: 40.00 Types: Cigarettes Start date: 08/02/1965 Quit date: 2016 Years since quittin.1 Smokeless tobacco: Former User Types: Chew Quit date: 08/2009 Substance and Sexual Activity Alcohol use: Yes Alcohol/week: 1.0 standard drinks Types: 1 Cans of beer per week Frequency: Monthly or less Drinks per session: 1 or 2 Binge frequency: Less than monthly Comment: " I don't drink much anymore" Drug use: No Sexual activity: Not Currently Lifestyle Physical activity Days per week: 3 days Minutes per session: 30 min Stress: Patient refused Relationships Social connections Talks on phone: Patient refused Gets together: Patient refused Attends hoahaoism service: Patient refused Active member of club or organization: Patient refused Attends meetings of clubs or organizations: Patient refused Relationship status: Patient refused Intimate partner violence Fear of current or ex partner: Patient refused Emotionally abused: Patient refused Physically abused: Patient refused Forced sexual activity: Patient refused Other Topics Concern Transportation No Stress in your marriage No Stress with your relationship No Stress with your family No Parenting/Being a parent No Daycare concerns No Not enough social support No Housing problems No Financial stress No Safety/danger No Work/job stress No Legal stress No Time conflicts (feeling too busy) No Academic/school stress No Language difficulties No Spiritual concerns No Insurance problems No The cost of having to take medication No The costs of buying food/groceries No Illness of family member/friend/relative No of a family member/friend/relative No Violence in your relationship No Abuse/neglect No Community stress No Cultural barriers No Ability to do self cares No Social History Narrative Not on file Family History Family History Problem Relation Age of Onset Lung Cancer Maternal Uncle Lung Cancer Maternal Aunt Lung Cancer Daughter Bladder Cancer Neg Hx Kidney Cancer Neg Hx Kidney Disease Neg Hx Nephrolithiasis Neg Hx Prostate Cancer Neg Hx Testicular Cancer Neg Hx ROS A full 12-point review of symptoms was conducted and was negative except for the positives stated inthe HPI. Physical Exam BP 117/69 Pulse 76 Temp 97.1 F (36.2 C) Resp 20 Ht 1.702 m (5' 7.01") Wt 86.6 kg (191 lb) SpO2 100% BMI 29.91 kg/m2 General: Sleeping, mildly drowsy but does awaken and converse. Eyes: Sclera anicteric, no pallor HENT: Throat clear, no exudates. Neck supple. CV: Regular rhythm, normal rate. No murmurs auscultated Resp: Barrel chest. No tachypnea. Prolonged expiratory phase and mild bilateral expiratory wheezing but not severe. No other significant adventitious sounds. Abdomen: Soft, non tender, non distended, bowel sounds normal. Negative rebound and guarding. No masses noted. Skin: No rashes or other concerning lesions. Normal skin temperature. Extremities: No lower extremity peripheral edema. Musculoskeletal: Appropriate muscle bulk. No joint deformities or effusion/swelling. Lymphatic: No cervical lymphadenopathy Neuro: Moves all four extremities. Gait not assessed. No focal motor or sensory deficits on limited exam. No resting or intention tremor. Psych: Drowsy but does awaken, oriented 3. No anxiety or agitation. I have reviewed all labs, and pertinent positives and negatives are discussed in the Assessment and Plan. Medical decision making: I have reviewed some of the patient's past/documentation from their EMR. Ireviewed the emergency room vital signs, labs, nursing notes. I reviewed the report from CT angiogram of the chest done in the emergency room. Raoul Hodgson MD 09/22/2020 9:39 PM PROCESS ENGINEERING MANAGER ESS ENGINEERING MANAGER documented in this encounter Consult Notes Owen Rosales CHAPLAIN - 09/24/2020 6:23 PM CSTAssociated Order(s): SPIRITUAL CARE REFERRALSpiritual Support visit per navigator referral - [facility] ICU Media Technician presented to room to speak with Sarai, who told his medical narrative and indicated he would likely be transitioning home in a day or two and receive home health care, the doctors are advisinghe has about 3 months to live. Sarai voiced he is mainly at peace with this situation, he did express that "let his kids down" by long-term smoking that shortened his life. Sarai articulated a [employer] Michelle that provides him with peace, comfort, and meaning. He voiced praying daily. Patient indicated he has strong family support from his sons and daughters and visits or calls them regularly. Media Technician listened supportively as pt processed his emotions and feelings about his hospitalization and prognosis. Media Technician prayed with pt, and dropped off a bible and devotional materials. Please page #[phone] for further spiritual and emotional support as needs are identified. ita Nunes CNP - 09/24/2020 3:[address] [facility] Palliative Medicine Consultation Sarai Patton is a 75yr old male admitted on 09/22/2020. Consult completed 09/24/2020. Referring Provider: Dr. García Referring Service: Internal Medicine Primary Care Physician: Roxanna Maynard PA-C Information is obtained from the medical record, patient, family, bedside RN, psych social worker and physician. Discussed with Katya Brandon, bedside RN. 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 Discussed with patient and son, palliative care as an outpatient vs hospice care. Family is going to take time to discuss amongst one another and I will follow-up tomorrow morning. Palliative care will plan on rounding with the hospitalist team in the morning for continuity of care. If patient discharged with hospice, will need to discuss deactivating the shocking component of the implanted defibrillator. Palliative Care Summary: Patient/family verbalizes improved understanding of chronic illness and its trajectory. Treatment options and plan of care have been discussed and revised. Patient/family had opportunity to ask questions. Palliative care services utilized this visit: Team-based care planning that involves the patient and family, Communication among patients, families, and provider team members, Education about illness and prognosis, Assistance with medical decisionmaking, Continuity of care across a range of clinical settings and services and Psychosocial supportfor patients and families Palliative care assessment: 1. Goal of care: Continue active treatment. Discussed with patient and son, palliative care as an outpatient vs hospice care. Family is going to take time to discuss amongst one another and I will follow-up tomorrow morning. 2. Code Status: DNR 3. Surrogate Decision maker: Health Care Agents Mala Dennis - Sister (Co-DPOA) Health Care Agent - Sister Not Active Primary (Mobile) Jay Patton Alternate Health Care Agent - Child Not Active Primary (Mobile) Advanced directive completed and present in electronic medical record? Yes Sarai has decisional participation ability, but certainly not full decisional capacity. 4. Pain: Denies Used 0 MME (mg oral morphine equivalents) in the past 24 hours. 5. Symptoms: Shortness of breath 6. Hospice: TBD 7. Desire to readmit to Hospital? TBD 8. Discharge plan: TBD 9. Nutrition: Regular 10. Spiritual and/or psychosocial support: Media Technician Services are available upon request. 11. Palliative Medicine will continue to follow History of Present Illness: Sarai Patton is a very pleasant 75yr old male admitted on 09/22/2020 with acute on chronic respiratory failure. He was discharged on Wednesday after a hospital stay due to acute respiratory failure secondary to COVID-19 and COPD; patient also experienced GI bleed and anticoagulation was discontinued on discharge. While at home, he had increasing shortness of breath and was transported to [facility] by ambulance. Patient has a history of atrial fibrillation, lung cancer stage III (declined treatment options offered by oncology), chronic respiratory failure, end stage COPD, and CKD stage 3. Patient is on home O2 and required increased oxygen needs, however, is now at 5L via NC. CT chest did not showPE. Patient is complaining of visual hallucinations that he attributes to the steroids, Solu-medrol.Palliative care consulted to discuss goals of care. Review of Systems: Pain - Denies Drowsiness- Not observed Nausea - No Shortness of breath - Yes Functional Assessment ECOG 3 Psychosocial/Spiritual History: Social History Social History Narrative Not on file Family Member Participants: Family members attending: Talked with Jay (son) and Mala (sister) via telephone. Present from the Palliative care team: Rita Nunes (myself). Patient participation: Sarai has decisional participation ability, but certainly not full decisionalcapacity. Family Meeting: Reviewed purpose and benefit of the Palliative medicine team with Sarai and his family, permission obtained to proceed with the family meeting. Sarai and his family shared how things have been going in the past few months. Sarai lives at home alone in [place], [place]. Sarai is somewhat confused during our conversation and reports some visual hallucinations that he relates to the steroids. Sarai's understanding of his current medical problems is somewhat accurate. Reviewed current medical issues. Sarai shared that he does not like coming to the hospital. His goal isto be comfortable and be at home. We discussed that for safety reasons it may be difficult to go directly home from this hospital stay. Discussed options in direction of care: active treatment (hospitalizations, outpatient palliative care ) vs comfort measures (goal shifts to focus on comfort and on living as well as he can for whatever time is left, aggressive treatment of pain or symptoms without attempting to prolong or shorten life). At one point Sarai said that he would be okay with going to [facility] with hospice and then another point in the conversation he said he would like to go home with outpatient palliative care. Jayis aware that Sarai is confused today. Jay would like to take time to talk with his siblings and I will plan to follow- up with him tomorrow morning. Provided emotional support for Sarai and his family. Patient and family with improved understanding of diagnosis and plan of care. 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 Incidental finding 1.0 cm right renal mass on CT 08/18/17 after trauma Automatic implantable cardioverter-defibrillator in situ 02/28/2007 Brugada syndrome Cardiac arrest (HCC) Chronic atrial fibrillation (HCC) Chronic systolic CHF (congestive heart failure) (HCC) 09/30/2016 Closed fracture of acromial end of right clavicle with routine healing Closed fracture of multiple ribs of right side with routine healing Closed fracture of right wrist Closed right humeral fracture 07/12/2013 Clotting disorder (HCC) COPD (chronic obstructive pulmonary disease) (HCC) Coronary atherosclerosis 02/28/2007 [place] in 2004. Treated in [place]. He developed ischemic cardiomyopathy after that. He has had a total of 3 cardioverter-defibrillators implanted. The most recent was placed in 2014 in [place]. Essential hypertension 02/28/2007 Glaucoma Hallucinations Heart murmur Hematuria Myocardial infarction (HCC) Normocytic anemia 04/01/2019 Osteoporosis Pulmonary embolism (HCC) 1982, occurred after trauma to the left foot that required surgical intervention Renal mass, right Smoker 07/05/2013 SOB (shortness of breath) Trauma Typical atrial flutter (HCC) Past Surgical History: Past Surgical History: Procedure Laterality Date COLONOSCOPY EYE SURGERY FOOT SURGERY Left FRACTURE SURGERY ICD IMPLANT REGISTERED CLIENT ASSOCIATE Allergies: The patient is allergic to codeine; nicorette [commit]; and valium. Prior to Admission Medications: Medications Prior to Admission Medication Sig Dispense Refill Last Dose omeprazole (PRILOSEC) 40 mg capsule Take 1 capsule (40 mg) by mouth 2 times a day before meals ATTENTION: Please mail these to Monae sister. Thank you!!!!!!!!!!!!!!!!!!!!! 90 capsule 4 09/22/2020 at Afternoon carVEDilol (COREG) 12.5 mg tablet Take 1.5 tablets (18.75 mg) by mouth 2 times a day with meals For BP 270 tablet 4 09/22/2020 at Afternoon digoxin (LANOXIN) 0.125 mg tablet Take 1 tablet (0.125 mg) by mouth 1 time per day 90 tablet 4 09/21/2020 at AM furosemide (LASIX) 20 mg tablet Take 1 tablet (20 mg) by mouth 2 times a day Hold for SBP less than 90 180 tablet 4 09/21/2020 at Afternoon lisinopril (PRINIVIL, ZESTRIL) 10 mg tablet Take 1 tablet (10 mg) by mouth 2 times a day 180 tablet 3 09/21/2020 at PM nitroglycerin (NITROSTAT) 0.4 mg sublingual tablet Dissolve 1 tablet (0.4 mg) under the tongue Every 5 minutes as needed for chest pain (up to 3 doses) 30 tablet 4 Greater than 1 Month at Unknown time predniSONE 5 mg tablet Take 0.5 tablets (2.5 mg) by mouth 1 time per day 45 tablet 4 Past Week at Unknown time rosuvastatin (CRESTOR) 20 mg tablet Take 1 tablet (20 mg) by mouth every night at bedtime 90 tablet 4 Past Week at Unknown time albuterol HFA (PROVENTIL,PROAIR,VENTOLIN) 108 (90 Base) MCG/ACT inhaler Inhale 2 puffs orally Every 4 hours as needed for shortness of breath, wheezing or cough Shake well before using. 3 g 4 Unknown at Unknown time albuterol-ipratropium (DUO-NEB) 2.5-0.5 mg/3 mL inhalation solution Inhale 1 unit-dose (3 mL) bynebulization every night at bedtime 270 mL 4 09/23/2020 at Unknown time budesonide (PULMICORT) 0.5 mg/2 mL inhalation solution Inhale 1 nebule (0.5 mg) by nebulization 2 times a day Rinse mouth after use. 360 mL 4 09/22/2020 at Afternoon formoterol (PERFOROMIST) 20 MCG/2ML inhalation solution Inhale 1 nebule (20 mcg) by nebulization2 times a day 360 mL 4 09/21/2020 at PM diphenhydrAMINE-acetaminophen (TYLENOL PM) 25-500 mg tablet Take 0.5 tablets by mouth at bedtimeas needed for insomnia Unknown at Unknown time DM-APAP-CPM (CORICIDIN HBP) 10-325-2 MG TABS Take 1 tablet by mouth at bedtime as needed (congestion) Unknown at Unknown time trolamine salicylate (ASPERCREME) 10 % CREA Apply to neck PRN aches (topically) up to 4 times daily Unknown at Unknown time acetaminophen (TYLENOL) 500 mg tablet Take 2 tablets (1,000 mg) by mouth Every 8 hours as neededfor mild pain or moderate pain Unknown at Unknown time Oxygen therapy Inhale 2-3 L/min orally continuously. Unknown at Unknown time magnesium hydroxide (MILK OF MAGNESIA) 400 mg/5 mL oral suspension Take 30 mL by mouth Every other day 09/21/2020 at AM Multiple Vitamins-Minerals (MULTIVITAMIN THERAPEUTIC WITH MINERALS) tablet Take 1 tablet by mouth 1 time per day 09/21/2020 at AM Current Medications: I reviewed medications in the Electronic Medical Record. Current Facility-Administered Medications Medication Dose Route Frequency Provider Last Rate Last Admin carVEDilol (COREG) tablet 6.25 mg 6.25 mg Oral 2 times a day with meals Vanita García MD [START ON 09/25/2020] lisinopril (PRINIVIL, ZESTRIL) tablet 5 mg 5 mg Oral Daily Vanita García MD albuterol (PROVENTIL) (2.5 mg/3mL) 0.083% inhalation soln 2.5 mg 2.5 mg Nebulization Every 2 hours prn Vanita García MD ipratropium (ATROVENT) 0.5 mg/2.5 mL inhalation soln 0.5 mg 0.5 mg Nebulization Every 6 hours Vanita García MD 0.5 mg at 09/24/20 0829 formoterol (PERFOROMIST) 20 MCG/2ML inhalation solution 20 mcg 20 mcg Nebulization 2 times a day Vanita García MD 20 mcg at 09/24/20 0829 sodium chloride 0.9% flush (adult) 10 mL 10 mL IV 2 times a day and prn Raoul Hodgson MD 10 mL at 09/24/20 1009 acetaminophen (TYLENOL) tablet 650 mg 650 mg Oral Every 4 hours prn Raoul Hodgson MD 650 mg at 09/24/20 1149 melatonin tablet 3 mg 3 mg Oral Bedtime prn Raoul Hodgson MD 3 mg at 09/23/20 2116 senna-docusate sodium (SENOKOT-S;PERICOLACE) tablet 2 tablet 2 tablet Oral 2 times a day prn Raoul Hodgson MD And bisacodyl (DULCOLAX) suppository 10 mg 10 mg Rectal 1 time a day prn Raoul Hodgson MD And docusate sodium (THEREVAC-SB MINI;ENEMEEZ MINI) 283 MG enema 1 enema 1 enema Rectal 1 time a day prn Raoul Hodgson MD ondansetron (ZOFRAN ODT) dispersible tablet 4 mg 4 mg Oral 4 times a day prn Raoul Hodgson MD And ondansetron (ZOFRAN) injection solution 4 mg 4 mg IV 4 times a day prn Raoul Hodgson MD digoxin (LANOXIN) tablet 0.125 mg 0.125 mg Oral daily Raoul Hodgson MD 0.125 mg at 09/24/201006 nitroglycerin (NITROSTAT) sublingual tablet 0.4 mg 0.4 mg Sublingual Every 5 minutes prn Raoul Hodgson MD omeprazole (priLOSEC) capsule 40 mg 40 mg Oral 2 times a day before meals Raoul Hodgson MD 40 mg at 09/24/201006 rosuvastatin (CRESTOR) tablet 20 mg 20 mg Oral at bedtime Raoul Hodgson MD 20 mg at 09/23/202054 methylPREDNISolone sod succ (SOLU-medrol) injection 40 mg 40 mg IV Every 12 hours Raoul Hodgson MD 40 mg at 09/24/201006 cefuroxime (CEFTIN) tablet 500 mg 500 mg Oral 2 times a day Raoul Hodgson MD 500 mg at 09/24/201006 Social History: Sarai reports that he quit smoking about 4 years ago. His smoking use included cigarettes. He started smoking about 55 years ago. He has a 40.00 pack-year smoking history. He quit smokeless tobacco useabout 11 years ago. His smokeless tobacco use included chew. He reports current alcohol use of about 1.0 standard drinks of alcohol per week. He reports that he does not use drugs. Social History Social History Narrative Not on file Family History: Family History Problem Relation Age of Onset Lung Cancer Maternal Uncle Lung Cancer Maternal Aunt Lung Cancer Daughter Bladder Cancer Neg Hx Kidney Cancer Neg Hx Kidney Disease Neg Hx Nephrolithiasis Neg Hx Prostate Cancer Neg Hx Testicular Cancer Neg Hx Objective Current Vital Signs Temp: 97.3 F (36.3 C) BP: 95/51 Weight: 86.6 kg (191 lb) SpO2: 100 % Resp: 18 Pulse: 70 Current BMI (>50 = increased risk): 29.91 O2 Device: NC - cool humidity O2 Flow Rate (L/min): 4 l/min Pain Ratin Intake and Output Last 24 Hours 09/23 0700 - 09/24 0659 In: 480 Out: 425 Weight data is summarized as follows: Wt Readings from Last 3 Encounters: 09/22/20 86.6 kg (191 lb) 09/21/20 86.6 kg (191 lb) 09/20/20 86.8 kg (191 lb 6.4 oz) Current:86.6 kg (191 lb) Admit: 86.6 kg (191 lb) Diagnostics and Labs: Relevant diagnostic, laboratory and radiological studies have been reviewed in the Electronic Medical Record. Physical Examination: General: Ill appearing patient lying in bed and mild labored breathing Mental Status: Oriented x 4, however, does make statements that are not consistent with the current conversation, reports visual hallucinations Chest: Crackles noted in bases, clear upper lobes, mild labored breathing, tachypnea Heart: S1S2 Abdomen: soft, nontender, nondistended, bowel sounds audible Skin: Pale, warm, dry Thank you for this Palliative Care Consultation. The palliative care team will continue to follow Sarai and family to provide support during this hospitalization. Please feel free to page [phone] for anyfurther questions or discussions. Rita Nunes APRN-YOLETTE Palliative Medicine Pager [phone] Time: Chart review - 10 minutes Face to face with patient & family (in counseling and family meeting) - 35 minutes Coordination of care - 10 minutes Documentation - 15 minutes Total Time - 70 minutes of which greater than 50% was spent counseling patient & family and coordination of care. Does the patient have an active cancer diagnosis? Yes ESS ENGINEERING MANAGER Anne Tate MD - 09/23/2020 1:59 PM CSTAssociated Order(s): CONSULT PULMONARY MEDICINE Pulmonary Inpatient Consult 09/23/2020 NAME: Sarai Patton PCP: Roxanna Maynard PA-C Reason for Consult: recently diagnosed stage 3 lung ca, copd, smoker, recent covid + , readmitted with acute on chronic hypoxic resp failure Impression / Plan Problem List: Acute on chronic hypoxemic and hypercapnic respiratory failure Acute exacerbation of COPD, end stage CHF Stage III Lung Cancer, radio graphically staged, no biopsy, not currently on treatment + COVID 19 Infection 09/16 CAD Ex-smoker Plan/Recommendations: - Patient is on 5L NC. Wean for spo2 >88%. Home o2 evaluation prior to discharge. - Would taper steroids, plan for taper of steroids over next couple of weeks back down to home dose of 2.5mg daily. - Continue home nebulizer regimen;perforomist, pulkrystyna. Duonebs at nighttime and albuterol prn. - I will also add atrovent nebulized tid to his home regimen. - Home astral ventilator. - PT/OT. - Consider palliative consult. Patient not interested in pursuing diagnostic or empiric therapy for this cancer. Also now with recurrent hospitalizations since 05/2020. - Can follow up with CHRISTOPHER Wong has an outpatient as needed. I have met with patient and have reviewed the medical records, medical history, pertinent test results and inpatient information. Thank you for the consult, please page consult service with any questions. Chief Complaint Chief Complaint Patient presents with Shortness of Breath Pt called EMS for increased SOB. EMS states oxygen saturation was 79% on 5L. Pt has lung cancer and 5L is his baseline. Pt on 98% on 10L on arrival. HPI Sarai Patton is a 75yr male ex-smoker with a history of end stage copd, chronic hypoxemic and hypercapnic respiratory failure on 2L O2 and astral ventilator at nighttime, also a fib and CHF who is seen in the hospital for acute on chronic respiratory failure. Patient is well-known to the pulmonary clinic, follows with Dawn Alvares. Earlier last year patient was noted to have a enlarging right lung mass with associated lymphadenopathy. Due to his underlying end-stage COPD he deferred biopsy and ultimately underwent PET scan imaging which showed concern for right- sided lung cancer with significant lymphadenopathy including the subcarinal region. Patient has presumed stage III lung cancer. Due to not wanting pursuing chemotherapy or biopsy patient was evaluated by radiation oncology at the end of July, at which point due to concern for possible additional pulmonary toxicity with his underlying lung cancer he decided to not pursue radiation therapy. Plan was to follow-up in 2 months with a repeat PET scan. 07 May of last year patient has had multiple hospitalizations, once in May, again in Juneand most recently in September from September 16 through September 20 with upper GI bleed. Due to concerns for anesthesia patient was treated conservatively and his Eliquis was discontinued. Patient wasalso noted to be positive for Covid on 16 September. He did not report any symptoms at that time. Patient was admitted yesterday with acute on chronic hypoxemic respiratory failure up to 7 L of supplemental oxygen. He was noted to have a stable hemoglobin and his BNP had actually reduced from previous. He had an unremarkable pro calcitonin. Patient was admitted for presumed COPD exacerbation was treated with Solu-Medrol and nebulizer therapy. Patient reports improved shortness of breath since admission, feels the steroids are helping. He iscurrently on 5 L nasal cannula uses up to 3 L at baseline. He denies any cough. He denies any chest pain. He continues to not be interested in any diagnostic or therapeutic procedures at this time with regards to his lung cancer. Of note, patient is on chronic 2.5 mg of prednisone, he has been unable to afford Daliresp in the past for his end-stage COPD. He did stop this a couple of months ago for 1 month duration and did notice some worsening shortness of breath. He has since been resumed on this prior to admission. Patient feels like his nebulizer therapies help. He denies any leg swelling. Denies any evidence of bleeding. Feels his weight has been stable. He denies any known sick contacts. Patient is an ex-smoker, he quit 2017, has a [id number] history. Currently lives by himself. He is intermittently compliant with his astral ventilator at nighttime and chronic oxygen, he does have a pulse oximeter at home. Medications Current Facility-Administered Medications Medication Dose Route Frequency Provider Last Rate Last Admin albuterol (PROVENTIL) (2.5 mg/3mL) 0.083% inhalation soln 2.5 mg 2.5 mg Nebulization Every 2 hours prn Vanita García MD ipratropium (ATROVENT) 0.5 mg/2.5 mL inhalation soln 0.5 mg 0.5 mg Nebulization Every 6 hours Vanita García MD 0.5 mg at 09/23/20 1242 formoterol (PERFOROMIST) 20 MCG/2ML inhalation solution 20 mcg 20 mcg Nebulization 2 times a day Vanita García MD 20 mcg at 09/23/20 1243 sodium chloride 0.9% flush (adult) 10 mL 10 mL IV 2 times a day and prn Raoul Hodgson MD 10 mL at 09/23/20 1004 acetaminophen (TYLENOL) tablet 650 mg 650 mg Oral Every 4 hours prn Raoul Hodgson MD melatonin tablet 3 mg 3 mg Oral Bedtime prn Raoul Hodgson MD senna-docusate sodium (SENOKOT-S;PERICOLACE) tablet 2 tablet 2 tablet Oral 2 times a day prn Raoul Hodgson MD And bisacodyl (DULCOLAX) suppository 10 mg 10 mg Rectal 1 time a day prn Raoul Hodgson MD And docusate sodium (THEREVAC-SB MINI;ENEMEEZ MINI) 283 MG enema 1 enema 1 enema Rectal 1 time a day prn Raoul Hodgson MD ondansetron (ZOFRAN ODT) dispersible tablet 4 mg 4 mg Oral 4 times a day prn Raoul Hodgson MD And ondansetron (ZOFRAN) injection solution 4 mg 4 mg IV 4 times a day prn Raoul Hodgson MD carVEDilol (COREG) tablet 18.75 mg 18.75 mg Oral 2 times a day with meals Raoul Hodgson MD 18.75 mg at 09/23/20 1004 digoxin (LANOXIN) tablet 0.125 mg 0.125 mg Oral daily Raoul Hodgson MD 0.125 mg at 09/23/20 1004 lisinopril (PRINIVIL, ZESTRIL) tablet 10 mg 10 mg Oral 2 times a day Raoul Hodgson MD10 mg at 09/23/20 1004 nitroglycerin (NITROSTAT) sublingual tablet 0.4 mg 0.4 mg Sublingual Every 5 minutes prn Raoul Hodgson MD omeprazole (priLOSEC) capsule 40 mg 40 mg Oral 2 times a day before meals Raoul Hodgson MD 40 mg at 09/23/20 0519 rosuvastatin (CRESTOR) tablet 20 mg 20 mg Oral at bedtime Raoul Hodgson MD 20 mg at 09/22/202208 methylPREDNISolone sod succ (SOLU-medrol) injection 40 mg 40 mg IV Every 12 hours Raoul Hodgson MD 40 mg at 09/23/20 1004 cefuroxime (CEFTIN) tablet 500 mg 500 mg Oral 2 times a day Raoul Hodgson MD 500 mg at 09/23/20 1004 Allergies Allergies Allergen Reactions Codeine Nausea and Vomiting Nicorette [Commit] Nausea and Vomiting Valium Nausea and Vomiting Medical and Surgical History Past Medical History: Diagnosis Date Alcohol abuse 07/05/2013 Allergic state 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 Incidental finding 1.0 cm right renal mass on CT 08/18/17 after trauma Automatic implantable cardioverter-defibrillator in situ 02/28/2007 Brugada syndrome Cardiac arrest (HCC) Chronic atrial fibrillation (HCC) Chronic systolic CHF (congestive heart failure) (HCC) 09/30/2016 Closed fracture of acromial end of right clavicle with routine healing Closed fracture of multiple ribs of right side with routine healing Closed fracture of right wrist Closed right humeral fracture 07/12/2013 Clotting disorder (HCC) COPD (chronic obstructive pulmonary disease) ([facility]) Coronary atherosclerosis 02/28/2007 [place] in 2004. Treated in [place]. He developed ischemic cardiomyopathy after that. He has had a total of 3 cardioverter-defibrillators implanted. The most recent was placed in 2014 in [place]. Essential hypertension 02/28/2007 Glaucoma Hallucinations Heart murmur Hematuria Myocardial infarction (HCC) Normocytic anemia 04/01/2019 Osteoporosis Pulmonary embolism ([facility]) 1982, occurred after trauma to the left foot that required surgical intervention Renal mass, right Smoker 07/05/2013 SOB (shortness of breath) Trauma Typical atrial flutter (HCC) Past Surgical History: Procedure Laterality Date COLONOSCOPY EYE SURGERY FOOT SURGERY Left FRACTURE SURGERY ICD IMPLANT REGISTERED CLIENT ASSOCIATE Social History Social History Socioeconomic History Marital status: Spouse name: Not on file Number of children: Not on file Years of education: Not on file Highest education level: Not on file Occupational History Not on file Social Needs Financial resource strain: Patient refused Food insecurity Worry: Patient refused Inability: Patient refused Transportation needs Medical: Patient refused Non-medical: Patient refused Tobacco Use Smoking status: Former Smoker Packs/day: 1.00 Years: 40.00 Pack years: 40.00 Types: Cigarettes Start date: 08/02/1965 Quit date: 2017 Years since quittin.1 Smokeless tobacco: Former User Types: Chew Quit date: 08/2009 Substance and Sexual Activity Alcohol use: Yes Alcohol/week: 1.0 standard drinks Types: 1 Cans of beer per week Frequency: Monthly or less Drinks per session: 1 or 2 Binge frequency: Less than monthly Comment: " I don't drink much anymore" Drug use: No Sexual activity: Not Currently Lifestyle Physical activity Days per week: 3 days Minutes per session: 30 min Stress: Patient refused Relationships Social connections Talks on phone: Patient refused Gets together: Patient refused Attends hoahaoism service: Patient refused Active member of club or organization: Patient refused Attends meetings of clubs or organizations: Patient refused Relationship status: Patient refused Intimate partner violence Fear of current or ex partner: Patient refused Emotionally abused: Patient refused Physically abused: Patient refused Forced sexual activity: Patient refused Other Topics Concern Transportation No Stress in your marriage No Stress with your relationship No Stress with your family No Parenting/Being a parent No Daycare concerns No Not enough social support No Housing problems No Financial stress No Safety/danger No Work/job stress No Legal stress No Time conflicts (feeling too busy) No Academic/school stress No Language difficulties No Spiritual concerns No Insurance problems No The cost of having to take medication No The costs of buying food/groceries No Illness of family member/friend/relative No of a family member/friend/relative No Violence in your relationship No Abuse/neglect No Community stress No Cultural barriers No Ability to do self cares No Social History Narrative Not on file Family History Family History Problem Relation Age of Onset Lung Cancer Maternal Uncle Lung Cancer Maternal Aunt Lung Cancer Daughter Bladder Cancer Neg Hx Kidney Cancer Neg Hx Kidney Disease Neg Hx Nephrolithiasis Neg Hx Prostate Cancer Neg Hx Testicular Cancer Neg Hx ROS Constitutional: negative Eyes: negative Ears, Nose: negative Cardiovascular: negative Respiratory: shortness of breath Gastrointestinal: negative Genitourinary: negative Musculoskeletal: negative Skin: negative Neurological: negative Psychiatric: negative Hematologic: negative Endocrine: negative Physical Exam Current Vital Signs Temp: 97.9 F (36.6 C) BP: 140/115 Pulse: 72 O2 Device: NC - cool humidity O2 Flow Rate (L/min): 5 l/min Resp: 22 Pain Ratin (out of 10) Weight: 86.6 kg (191 lb) SpO2: 96 % GENERAL: No acute distress. HENT: Normocephalic. Atraumatic. Oral mucosa moist. EYES: PERRL. Conjunctivae normal. NECK: No mass. No lymphadenopathy. No thyromegaly. Trachea midline. RESPIRATORY: Clear but diminished b/l. No wheezing. CARDIOVASCULAR: Regular rate and rhythm. GASTROINTESTINAL: Abdomen nontender, nondistended. Normoactive bowel sounds. NEUROLOGICAL: Alert. Awake. INTEGUMENTARY: Warm, moist. MUSCULOSKELETAL: No deformities. PSYCHIATRIC: Cooperative. Labs/Imaging Lab Results Component Value Date WBC 11.3 (H) 09/23/2020 NUCRBC 0 09/22/2020 RBC 3.08 (L) 09/23/2020 HEMOGLOBIN 7.9 (L) 09/23/2020 HEMATOCRIT 26.9 (L) 09/23/2020 MCV 87.3 09/23/2020 MCH 25.6 09/23/2020 MCHC 29.4 (L) 09/23/2020 PLTCOUNT 329 09/23/2020 NEUTROPCT 95.0 09/23/2020 LYMPHSPCT 4.0 09/23/2020 MONOSPCT 1.0 09/23/2020 EOSPCT 1.9 09/22/2020 BASOPHILPCT 0.4 09/22/2020 Lab Results Component Value Date CO2 32 (H) 09/23/2020 CL 95 (L) 09/23/2020 POTASSIUM 4.7 09/23/2020 NA 135 09/23/2020 CREATSERUM 0.88 09/23/2020 GLUCOSE 143 (H) 09/23/2020 BUN 20 09/23/2020 CA 8.2 (L) 09/23/2020 Medical Decision Making I have: Reviewed or requested one or more lab tests. Reviewed or requested one or more radiology tests or services. Reviewed or requested one or more medical diagnostic studies. Reviewed and summarized old records/obtained history from person other than the patient/discussed case with another provider. Independently visualized an image, tracing, or specimen itself, previously interpreted by another provider. Anne Tate MD ESS ENGINEERING MANAGER documented in this encounter ED Notes Eliceo Stewart MD - 09/22/2020 4:05 PM CST Emergency Department Visit 09/22/2020 PT ID: Sarai Patton is a 75yr old male CHIEF COMPLAINT: Chief Complaint Patient presents with Shortness of Breath Pt called EMS for increased SOB. EMS states oxygen saturation was 79% on 5L. Pt has lung cancer and 5L is his baseline. Pt on 98% on 10L on arrival. DIAGNOSIS/ASSESSMENT: NEW PRESCRIPTIONS: 1. Hypoxia 2. SOB (shortness of breath) 3. Hypotension, unspecified hypotension type 4. Lab test positive for detection of COVID-19 virus DISPOSITION AND PLAN: Patient Disposition: Patient Admitted and Treated in this Facility Patient will be admitted. ED COURSE ED Course as of Sep 25 161 Sun Sep 22, 2020 1500 Patient presents with hypoxia or shortness of breath and generalized weakness. 1500 Really after arrival his blood pressure dropped from 143/12 to 70/49. He was given a fluid bolus. Recheck 92/58. 1500 Troponin I: 0.011 1500 WBC(!): 13.5 1500 Hemoglobin(!): 7.5 1501 Masslike area in the right hilum and right base somewhat more well-defined and x-ray from September 16. AICD in place. No bony abnormal allergies. No focal infiltrate. XRAY CHEST PORTABLE - 1511 pH Venous: 7.33 1511 pCO2 Venous(!): 78 1511 pO2 Venous(!): 27 1511 Lactic Acid: 0.9 1511 BNP(!): 117 1511 Recheck blood pressure 77/56, patient says he feels fine. 1537 recheck blood pressure 101/57 1555 Recheck blood pressure 119/87. 1607 Progression of cancer but no pulmonary embolism. CTA CHEST 1700 Work-up, pertinent physical exam findings and plan discussed with the hospitalist physician foradmission. ED Medication Administration from 09/22/2020 1334 to 09/22/2020 2048 Date/Time Order Dose Route Action Action by 09/22/2020 1413 albuterol-ipratropium (DUO-NEB) 2.5-0.5 mg/3 mL inhalation solution 3 mL 3 mL Nebulization Given Arnulfo Nguyễn, WOO 09/22/2020 1542 iohexol (OMNIPAQUE) 350 mg/mL solution 100 mL 85 mL IV Given Storm Live, RT(R) 09/22/2020 1435 methylPREDNISolone sod succ (SOLU-medrol) injection 125 mg 125 mg IV Given Marbella Aguilar RN 09/22/2020 1459 sodium chloride 0.9% (bolus) IV solution 1,000 mL 1,000 mL IV Given Soheila Julien RN 09/22/2020 1459 sodium chloride 0.9% (bolus) IV solution 1,000 mL 1,000 mL IV Not Given Soheila Julien RN HEART SCORE= 3 CLINICAL DECISION SUPPORT: Scoring Scales [place] Coma Scale Score: 15 HPI: The history is provided by the patient and the EMS personnel. No pediatric speech language pathologist was used. Shortness of Breath This is a new problem. The problem occurs continuously.The current episode started 3 to 5 hours ago.The problem has not changed since onset.Associated symptoms include chest pain. Pertinent negatives include no fever. It is unknown what precipitated the problem. He has tried nothing for the symptoms.He has had prior hospitalizations. He has had prior ED visits. Associated medical issues include COPD, PE, CAD, heart failure and past ND. The patient is a 75yr old male with a pmh of COPD, chronic AFIB, CHF, PE, ND and alcohol abuse, brought in by ambulance to the Emergency Department with complaints of SOB. Pt was recently discharged from the hospital and he was doing fairly well, but this morning he became significantly more short ofbreath. He had been on 5L of O2 since discharge. When paramedics arrived to the patient's home, hewas found to have O2 saturations of 79%. His supplemental O2 was increased and the patient says that he is feeling much better currently. He is having very little chest pain. Pt tells me that he haslung cancer and is worried that it might be worse. He denies fever or chills. Patient's chart was reviewed personally by me. She was admitted to the hospital September 16- for respiratory failure, COPD, blood loss anemia, GI bleed. Sxs improved after receiving blood. He trish 2L of O2 24/7 at baseline. They discontinued his anticoagulation after his last hospitalization. Pt tested positive for COVID on September 16. Pt saw oncology and has probable stage 3 lung cancer, but they were not interested in pursuing biopsy because of his overall poor health. Patient declined chemotherapy, but was agreeable to radiation therapy. It does not look like anything has been done for the cancer. After risks and benefits discussion, patient elected to not proceed with treatment and continue with monitoring. REVIEW OF SYSTEMS: Review of Systems Constitutional: Negative for chills and fever. Respiratory: Positive for shortness of breath. Cardiovascular: Positive for chest pain. All other systems reviewed and are negative. PHYSICAL EXAM ED Triage Vitals Temp Temp Source Pulse Resp BP SpO2 O2 Flow Rate (L/min) O2 Device 09/22/20 1346 09/22/20 1346 09/22/20 1346 09/22/20 1346 09/22/20 1346 09/22/20 1346 09/22/20 1415 09/22/20 1346 97.7 F (36.5 C) Oral 64 17 143/123 100 % 10 l/min RA Physical Exam Vitals signs and nursing note reviewed. Constitutional: General: He is not in acute distress. Appearance: He is well-developed. HENT: Head: Normocephalic and atraumatic. Eyes: Conjunctiva/sclera: Conjunctivae normal. Neck: Musculoskeletal: Normal range of motion and neck supple. Cardiovascular: Rate and Rhythm: Normal rate and regular rhythm. Heart sounds: Normal heart sounds. Pulmonary: Effort: Pulmonary effort is normal. No respiratory distress. Breath sounds: Wheezing (slight expiratory wheezes) present. Comments: O2 100% on 8L facemask. AICD in left chest. Abdominal: General: There is no distension. Palpations: Abdomen is soft. Tenderness: There is no abdominal tenderness. Musculoskeletal: Normal range of motion. Comments: Symmetrical peripheral edema Skin: General: Skin is warm and dry. Neurological: Mental Status: He is alert and oriented to person, place, and time. Psychiatric: Behavior: Behavior normal. Thought Content: Thought content normal. PROCEDURES: Procedures MEDICATIONS & ALLERGIES: No current facility-administered medications on file prior to encounter. Current Outpatient Medications on File Prior to Encounter Medication Sig Dispense Refill omeprazole (PRILOSEC) 40 mg capsule Take 1 capsule (40 mg) by mouth 2 times a day before meals ATTENTION: Please mail these to Monae sister. Thank you!!!!!!!!!!!!!!!!!!!!! 90 capsule 4 carVEDilol (COREG) 12.5 mg tablet Take 1.5 tablets (18.75 mg) by mouth 2 times a day with meals For BP 270 tablet 4 digoxin (LANOXIN) 0.125 mg tablet Take 1 tablet (0.125 mg) by mouth 1 time per day 90 tablet 4 furosemide (LASIX) 20 mg tablet Take 1 tablet (20 mg) by mouth 2 times a day Hold for SBP less than 90 180 tablet 4 lisinopril (PRINIVIL, ZESTRIL) 10 mg tablet Take 1 tablet (10 mg) by mouth 2 times a day 180 tablet 3 nitroglycerin (NITROSTAT) 0.4 mg sublingual tablet Dissolve 1 tablet (0.4 mg) under the tongue Every 5 minutes as needed for chest pain (up to 3 doses) 30 tablet 4 predniSONE 5 mg tablet Take 0.5 tablets (2.5 mg) by mouth 1 time per day 45 tablet 4 rosuvastatin (CRESTOR) 20 mg tablet Take 1 tablet (20 mg) by mouth every night at bedtime 90 tablet 4 albuterol HFA (PROVENTIL,PROAIR,VENTOLIN) 108 (90 Base) MCG/ACT inhaler Inhale 2 puffs orally Every 4 hours as needed for shortness of breath, wheezing or cough Shake well before using. 3 g 4 albuterol-ipratropium (DUO-NEB) 2.5-0.5 mg/3 mL inhalation solution Inhale 1 unit-dose (3 mL) bynebulization every night at bedtime 270 mL 4 budesonide (PULMICORT) 0.5 mg/2 mL inhalation solution Inhale 1 nebule (0.5 mg) by nebulization 2 times a day Rinse mouth after use. 360 mL 4 formoterol (PERFOROMIST) 20 MCG/2ML inhalation solution Inhale 1 nebule (20 mcg) by nebulization2 times a day 360 mL 4 diphenhydrAMINE-acetaminophen (TYLENOL PM) 25-500 mg tablet Take 0.5 tablets by mouth at bedtimeas needed for insomnia DM-APAP-CPM (CORICIDIN HBP) 10-325-2 MG TABS Take 1 tablet by mouth at bedtime as needed (congestion) trolamine salicylate (ASPERCREME) 10 % CREA Apply to neck PRN aches (topically) up to 4 times daily acetaminophen (TYLENOL) 500 mg tablet Take 2 tablets (1,000 mg) by mouth Every 8 hours as neededfor mild pain or moderate pain Oxygen therapy Inhale 2-3 L/min orally continuously. 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 Incidental finding 1.0 cm right renal mass on CT 08/18/17 after trauma Automatic implantable cardioverter-defibrillator in situ 02/28/2007 Brugada syndrome Cardiac arrest (HCC) Chronic atrial fibrillation (HCC) Chronic systolic CHF (congestive heart failure) (HCC) 09/30/2016 Closed fracture of acromial end of right clavicle with routine healing Closed fracture of multiple ribs of right side with routine healing Closed fracture of right wrist Closed right humeral fracture 07/12/2013 Clotting disorder (HCC) COPD (chronic obstructive pulmonary disease) ([facility]) Coronary atherosclerosis 02/28/2007 ND in 2004. Treated in [place]. He developed ischemic cardiomyopathy after that. He has had a total of 3 cardioverter-defibrillators implanted. The most recent was placed in 2014 in [place]. Essential hypertension 02/28/2007 Glaucoma Hallucinations Heart murmur Hematuria Myocardial infarction (HCC) Normocytic anemia 04/01/2019 Osteoporosis Pulmonary embolism (HCC) 1982, occurred after trauma to the left foot that required surgical intervention Renal mass, right Smoker 07/05/2013 SOB (shortness of breath) Trauma Typical atrial flutter (HCC) Past Surgical History: Procedure Laterality Date COLONOSCOPY EYE SURGERY FOOT SURGERY Left FRACTURE SURGERY ICD IMPLANT REGISTERED CLIENT ASSOCIATE SOCIAL HISTORY Social History Socioeconomic History Marital status: Spouse name: Not on file Number of children: Not on file Years of education: Not on file Highest education level: Not on file Social Needs Financial resource strain: Patient refused Food insecurity Worry: Patient refused Inability: Patient refused Transportation needs Medical: Patient refused Non-medical: Patient refused Tobacco Use Smoking status: Former Smoker Packs/day: 1.00 Years: 40.00 Pack years: 40.00 Types: Cigarettes Start date: 08/02/1965 Quit date: 2017 Years since quittin.1 Smokeless tobacco: Former User Types: Chew Quit date: 08/2009 Substance and Sexual Activity Alcohol use: Yes Alcohol/week: 1.0 standard drinks Types: 1 Cans of beer per week Frequency: Monthly or less Drinks per session: 1 or 2 Binge frequency: Less than monthly Comment: " I don't drink much anymore" Drug use: No Sexual activity: Not Currently Lifestyle Physical activity Days per week: 3 days Minutes per session: 30 min Stress: Patient refused Relationships Social connections Talks on phone: Patient refused Gets together: Patient refused Attends hoahaoism service: Patient refused Active member of club or organization: Patient refused Attends meetings of clubs or organizations: Patient refused Relationship status: Patient refused Intimate partner violence Fear of current or ex partner: Patient refused Emotionally abused: Patient refused Physically abused: Patient refused Forced sexual activity: Patient refused IOusmane, acting as a scribe for Dr. Stewart to document services personally performed for Sarai Patton by Dr. Stewart. Ousmane Adair, SCRIBE 09/22/20 4:05 PM PROCESS ENGINEERING MANAGER I worked with the ED Scribe to provide the medical documentation for this ED encounter, who scribed in my presence. I have read, amended as needed, and agree with this documentation Eliceo Stewart M.D. ESS ENGINEERING MANAGER documented in this encounter Miscellaneous Notes Care Planning - Soheila Phan RN - 09/26/2020 10:42 AM PROCESS ENGINEERING MANAGER Problem: IMBALANCED NUTRITION: LESS THAN BODY REQUIREMENTS Goal: NUTRITIONAL STATUS: NUTRIENT INTAKE Description: DEFINITION: Nutrient intake to meet metabolic needs. 1=Not adequate, 2=Slightly adequate, 3=Moderately adequate, 4=Substantially adequate, 5=Totally adequate. Outcome: Outcome acceptable for discharge Problem: IMPAIRED GAS EXCHANGE Goal: RESPIRATORY STATUS Description: DEFINITION: Movement of air in and out of the lungs and exchange of carbon dioxide and oxygen at the alveolar level. 1=Severe deviation from normal range, 2=Substantial deviation from normal range, 3=Moderate deviation from normal range, 4=Mild deviation from normal range, 5=No deviationfrom normal range. Outcome: Outcome acceptable for discharge ase Gail - Neha Nguyễn LSW - 09/26/2020 9:05 AM CSTCASE MANAGEMENT / SOCIAL SERVICE FINAL TRANSITION PLAN TRANSITION DATE: 09/26/2020 TRANSITION TIME: 1000 INTENDED PAYER SOURCE FOR AGENCY: Medical Assistance: [place] and Medicare TRANSITION DESTINATION: [facility] Nurse to Nurse: Discharge fax: [phone] DOES ACCEPTING FACILITY REQUIRE COVID TESTING BEFORE DISCHARGE: N/A Off Covid precautions, 09/26 TRANSITION TRANSPORTATION: Family Car TRANSPORTATION PAYMENT: Not applicable TRANSITION CHOICES OFFERED: Home Health: Home Safety Evaluation, Nurse, Occupational Therapy and Physical Therapy Home: Family/Friend Support Group Home Facility Swing Bed Transitional Care Hospice, home and skilled DOES THE PATIENT HAVE A PRIMARY CARE PHYSICIAN? Yes Roxanna Maynard PA-C PATIENT / SUBSTITUTE DECISION MAKER GOAL UPON TRANSITION: First Choice: Home Health: Bath Aid, Home Safety Evaluation, Nurse, Occupational Therapy and Physical Therapy Home: Family/Friend Support Group Home Facility Swing Bed Transitional Care PATIENT CHOICE EDUCATION: Not applicable By telephoine MEDICARE 3 IP MIDNIGHT CRITERIA MET: N/A RESOURCE(S) PROVIDED: Placement and Department of Chief Controller Station DOES PATIENT HAVE CLOTHING TO WEAR AT DISCHARGE? Yes ANTICIPATED MODE OF TRANSPORT TO AND FROM FOLLOW UP APPOINTMENTS: Family Car VERIFIED CORRECT PHARMACY IS ENTERED FOR DISCHARGE: Yes - Pharmacy: 65 METHOD OF PRESCRIBING MEDICATIONS: Reconcile medications as Patient Transfer ("65 button") TRANSITION ROUNDING COMPLETED WITH THE FOLLOWING: Patient / family Training Systems Officer Attending MD thermodynamic physicist Telephone Secure Chat In person COMMENTS / PATIENT AND FAMILY RESPONSE TO PLAN: Discussed previous plan with family, staff, patient, and facility (LM with Georgina) Industrial Real Estate Agent was required to file a new LOC today , as the yesterday's was not completed correctly (by advertising copy writer). A new LOC was completed, correctly, all proper documentation sent via fax and with screen. ADDENDUM: Followed up with [facility] and [facility]. SPECIAL TRANSITION DAY INSTRUCTIONS TO NURSE / MD: CURRENT READMISSION RISK SCORE / HANDOFF: Predictive Risk Score Risk of Unplanned Readmission: 32.4 Handoff given: N/A SIGNED: RICO Adams Medical Social Work; Case Management [facility], [place] Desk [phone] Route Number [id number] are Planning - Rocky Ariza RN - 09/25/2020 9:16 PM PROCESS ENGINEERING MANAGER Problem: IMPAIRED GAS EXCHANGE Goal: RESPIRATORY STATUS Description: DEFINITION: Movement of air in and out of the lungs and exchange of carbon dioxide and oxygen at the alveolar level. 1=Severe deviation from normal range, 2=Substantial deviation from normal range, 3=Moderate deviation from normal range, 4=Mild deviation from normal range, 5=No deviationfrom normal range. Flowsheets (Taken 09/25/20202113) Initial Score: 4 Target Score: 5 Plan of care reviewed with: Patient Patient specific goal for the day: Patient saturations will be >90% on 3-4 Liters, which is his baseline at home. Patient specific goal for the stay: Pt will be back to his baseline Achieve goal for stay: By discharge Patient Progress: Pt has been using anywhere from 3-5 Liters of O2 with saturation above 90%. Will continue to monitor. Note: Patient oriented to self, place, and situation. SBA, on 4L O2 via nasal cannula. Is eating 75-100% of meals per patient. The patient does tripod on a continuous basis at bedside, but uses calllight appropriately. No complaints at this time. Will continue to monitor. ase Mgmt - Neha Nguyễn LSW - 09/25/2020 10:51 AM CSTCASE MANAGEMENT / SOCIAL SERVICE FINAL TRANSITION PLAN TRANSITION DATE: 09/26/2020 TRANSITION TIME: 1000 INTENDED PAYER SOURCE FOR AGENCY: Medical Assistance: [employer] and Medicare TRANSITION DESTINATION: [facility] Nurse to Nurse: Discharge fax: [phone] [place] LOC Pending DOES ACCEPTING FACILITY REQUIRE COVID TESTING BEFORE DISCHARGE: N/A TRANSITION TRANSPORTATION: Family Car TRANSPORTATION PAYMENT: Not applicable TRANSITION CHOICES OFFERED: Home Health: Bath Aid, Home Safety Evaluation, Nurse, Occupational Therapy and Physical Therapy Home: Family/Friend Support and Non-nursing Services Hospice: Home Group Home Facility Swing Bed Transitional Care Hospice, facility End of life cares DOES THE PATIENT HAVE A PRIMARY CARE PHYSICIAN? Yes Roxanna Maynard PA-C PATIENT / SUBSTITUTE DECISION MAKER GOAL UPON TRANSITION: First Choice: Hospice: Group Home Facility PATIENT CHOICE EDUCATION: Not applicable By telephone MEDICARE 3 IP MIDNIGHT CRITERIA MET: N/A RESOURCE(S) PROVIDED: Placement and Department of Chief Controller Station DOES PATIENT HAVE CLOTHING TO WEAR AT DISCHARGE? Yes ANTICIPATED MODE OF TRANSPORT TO AND FROM FOLLOW UP APPOINTMENTS: Family Car VERIFIED CORRECT PHARMACY IS ENTERED FOR DISCHARGE: Yes - Pharmacy: 65 button METHOD OF PRESCRIBING MEDICATIONS: Reconcile medications as Patient Transfer ("65 button") TRANSITION ROUNDING COMPLETED WITH THE FOLLOWING: Patient / family Training Systems Officer Attending MD Bedside political director RN COMMENTS / PATIENT AND FAMILY RESPONSE TO PLAN: Industrial Real Estate Agent spoke with staff about plan, both in person and by secure chat. Patient and son are agreeable to discharge to [facility] in [place]. Jay, Son, confirmed to this advertising copy writer that end of life cares in [place] is patient's goal. They are not interested in therapy. Industrial Real Estate Agent communicated with Georgina at [facility]. She expressed they are able to accept this patient tomorrow. Jay will be transportation. He is to [facility]. He is asked to bring home medications if possible. Industrial Real Estate Agent left generic message on Jay's VM as he did not have a self identifier on his voice mail greeting. SPECIAL TRANSITION DAY INSTRUCTIONS TO NURSE / MD: CURRENT READMISSION RISK SCORE / HANDOFF: Predictive Risk Score Risk of Unplanned Readmission: 34.2 Handoff given: N/A SIGNED: RICO Adams Medical Social Work; Case Management [facility], [place] Desk [phone] Route Number [id number] ESS ENGINEERING MANAGER Respiratory Therapy - Terry Muñoz RRT - 09/25/2020 8:55 AM CSTPatient continues on 3-4L NC, SPO2 99-100%. Receives BID Pulmicort and q6 Atrovent. BS clear and diminished. COPD score:1. Patient tolerates aerobika well. Encouraged him to do it at bedside. V-60 in room on stdby. Rt to follow. upplemental Progress Note - Bettie Valenzuela APRN-CNP - 09/25/2020 6:30 AM CSTHemoglobin 6.9 = 2 units RBC transfusion. are Planning - Kathya Herrera, RN - 09/25/2020 6:30 AM PROCESS ENGINEERING MANAGER Problem: IMPAIRED GAS EXCHANGE Goal: RESPIRATORY STATUS Description: DEFINITION: Movement of air in and out of the lungs and exchange of carbon dioxide and oxygen at the alveolar level. 1=Severe deviation from normal range, 2=Substantial deviation from normal range, 3=Moderate deviation from normal range, 4=Mild deviation from normal range, 5=No deviationfrom normal range. Flowsheets (Taken 09/25/2020 0629) Initial Score: 4 Target Score: 5 Plan of care reviewed with: Patient Patient specific goal for the day: Patient saturations will be >90% on 3-4 Liters, which is his baseline at home. Patient specific goal for the stay: Pt will be back to his baseline Achieve goal for stay: By discharge Patient Progress: Pt has been using anywhere from 3-5 Liters of O2 with saturation above 90%. Will continue to monitor. hysical Therapy - Margaret Nichols PT - 09/24/2020 3:23 PM CST Physical Therapy Acute Inpatient Initial Evaluation ASSESSMENT/RECOMMENDATIONS Today the patient is able to demonstrate transfers and ambulation. Pt is limited by decreased endurance and activity tolerance. Patient is not safe to discharge to home at this time. Pt needs assist of1 for mobility. Upon discharge, would recommend this patient discharge to low intensity setting. Activity Prescription with Nursing: With assist of 1, walk in room and progressively increase to out in the cannon 3 times per day. At a minimum, up to chair for all meals or 3 times per day. Encourage walking to bathroom rather than use commode or bedpan. Diagnosis: ICD-10-CM 1. Hypoxia R09.02 2. SOB (shortness of breath) R06.02 3. Hypotension, unspecified hypotension type I95.9 4. 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), Brugada syndrome, Cardiac arrest ([facility]), Chronic atrial fibrillation ([facility]), Chronic systolic CHF (congestive heart failure) ([facility]) (09/30/2016), Closed fracture of acromial end of right clavicle with routine healing, Closed fracture of multiple ribs of right side with routine healing, Closed fracture of right wrist, Closed right humeral fracture (07/12/2013), Clotting disorder ([facility]), COPD (chronic obstructive p ulmonary disease) ([facility]), Coronary atherosclerosis (02/28/2007), Essential hypertension (02/28/2007), Glaucoma, Hallucinations, Heart murmur, Hematuria, Myocardial infarction ([facility]), Normocytic anemia (04/01/2019), Osteoporosis, Pulmonary embolism ([facility]), Renal mass, right, Smoker (07/05/2013), SOB (shortness of breath), Trauma, and Typical atrial flutter ([facility]). He also has no past medical history of Anxiety, Arthritis, Asthma, Blood transfusion without reported diagnosis, Breast cancer ([facility]), Cataract, Depression, Diabetes mellitus (HCC), Gene mutation, GERD (gastroesophageal reflux disease), HIV infection ([facility]), Hyperlipidemia, Obesity, Seizures ([facility]), Sleep apnea, Stroke ([facility]), Thyroid disease, or Ulcer. Patient has a past surgical history that includes colonoscopy; eye surgery; fracture surgery; icd implant greenskeeper laborer; and Foot Surgery (Left). Precautions: Airborne-contact SUBJECTIVE Social History: Patient lives: alone Home environment: apartment Steps: 3 to enter Prior Level of Function: Activities of Daily Living: Assistance from [facility] nurse for cleaning, bathing, and meals Mobility: Independent for HH mobility, 4WW for outside the home History of falls: Yes Home O2: 2-4L at baseline Adaptive equipment available: 4WW Patient/Family Goals: Pt is not sure yet on goals for care. Palliative consult placed. OBJECTIVE Patient seen at bedside. Patient presents with 4L O2 via NC. Vitals: SpO2 remains >88% throughout session Cognition: Pt follows commands well. He has apparently been hallucinating today. Pain: Denies pain Posture: unremarkable Observation: Pt sitting EOB upon arrival of PT. Range of Motion: Bilateral lower extremities WFL Refer to Occupational Therapy report for upper extremity range of motion. Strength: Bilateral lower extremities WFL Refer to Occupational Therapy report for upper extremity strength testing. Tone: Normal. Bed Mobility: Supine to Sit: Not observed Sit to Supine: Not observed Transfers: Sit to/from Stand: SBA with no AD Balance: Static Sitting Balance: good Dynamic Sitting Balance: Good, pt sitting EOB upon arrival of PT Static Standing with no Assistive Device: fair Dynamic Standing with no Assistive Device: fair Gait: Pt ambulates x ~ 75' with no AD and CGA. Pt ambulates slowly with wide LOUISA, is impulsive and demonstrates decreased safety awareness. Pt has to sit down and is very fatigued after this distance.Pt reports he cannot ambulate further at this time. Stairs: Not assessed today. Education: Patient was educated on role of acute PT, use of call light today through explanation. They acceptedteaching and will need reinforcement. Today's Treatment Evaluation: Completed Gait training: minutes Therapeutic exercise: minutes Therapeutic activity: 10 minutes TOTAL TIME-CODED MINUTES: 10 minutes TOTAL TREATMENT TIME: 25 minutes Treatment provided: Low complexity evaluation, ambualtion GOALS Goals to be achieved by discharge. Patient will be aware of equipment recommendations as indicated in note to allow for safe mobility. Patient will be able to ambulate 100 feet using LRAD with no assistance to progress to safe functional mobility in the home. Patient will demonstrate adequate awareness of fall prevention tactics to reduce risk of falling. PLAN Will continue 3 times per week. Physical Therapy Services: balance training education equipment gait training neuromuscular re-education other unspecified therapy services therapeutic activity therapeutic exercise Margaret Nichols DPT Pager number: [phone] ESS ENGINEERING MANAGER Occupational Therapy - Dawn Gipson OTR/Raymundo - 09/24/2020 3:15 PM CST Occupational Therapy Acute Care Evaluation Impression/Recommendations Recommendation ongoing pending further discharge plan (I.e. palliative consult). If return home, recommend 24/7 supervision due to decreased activity tolerance and decreased safety awareness. Patient completing observed ADLs and functional transfers with assist of 1. Will continue to monitor acutely and make updated recommendations as able to maximize functional strength, activity tolerance, cognition and safety. Admitting Diagnosis: ICD-10-CM 1. Hypoxia R09.02 2. SOB (shortness of breath) R06.02 3. Hypotension, unspecified hypotension type I95.9 4. Lab test positive for detection of COVID-19 virus U07.1 History of Present Illness: Refer to H&P for details 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 Incidental finding 1.0 cm right renal mass on CT 08/18/17 after trauma Automatic implantable cardioverter-defibrillator in situ 02/28/2007 Brugada syndrome Cardiac arrest (HCC) Chronic atrial fibrillation (HCC) Chronic systolic CHF (congestive heart failure) ([facility]) 09/30/2016 Closed fracture of acromial end of right clavicle with routine healing Closed fracture of multiple ribs of right side with routine healing Closed fracture of right wrist Closed right humeral fracture 07/12/2013 Clotting disorder (HCC) COPD (chronic obstructive pulmonary disease) ([facility]) Coronary atherosclerosis 02/28/2007 [place] in 2004. Treated in [place]. He developed ischemic cardiomyopathy after that. He has had a total of 3 cardioverter-defibrillators implanted. The most recent was placed in 2014 in [place]. Essential hypertension 02/28/2007 Glaucoma Hallucinations Heart murmur Hematuria Myocardial infarction (HCC) Normocytic anemia 04/01/2019 Osteoporosis Pulmonary embolism ([facility]) 1982, occurred after trauma to the left foot that required surgical intervention Renal mass, right Smoker 07/05/2013 SOB (shortness of breath) Trauma Typical atrial flutter (HCC) Activity Level: Progressive Mobility Precautions: Fall Infection Control: Airborne - Contact Patient History Social/Home Environment: Patient lives: lives alone House: apartment Home Environment: Bed/Bath on main: Yes Bath Setup: Walk-In Shower with curtain Employment: retired Prior Level of Function Independent with: dressing, simple meal preparation Assistance needed with: bathing, medication management, cleaning, laundry, driving, groceries and money management Comments: Patient reported that he has a bath aid 3x/wk for bathing, nurse 2 days/wk for medication management; makes his own breakfast and snacks, along with senior citizen meals; patient's sister is his POA for managing his finances; HH aide assists with cleaning, bathing and laundry. Christopher mcfadden reports driving minimal distances. Reported that his family lives nearby and checks on him every 4 hours during the day. The patient is alone during the night. Adaptive Equipment Available: shower chair, grab bars tub/shower, grab bars toilet and front-wheeledwalker Present for Eval: Patient Objective Activities of Daily Living: Feeding: Independent within reach Grooming: Set-up in sitting to shave, wash/dry face and comb hair for ~15 mintues. Upper Extremity Dressing: Not observed. Lower Extremity Dressing: SBA in sitting to doff/don B gripper socks, decreased activity tolerance with rest inbetween doffing and donning. Bathing: Not observed. Toileting: Declined. Comments: Patient below baseline, primarily limited by decreased activity tolerance and cognition. Transfers: Bed: Not observed, sitting in chair upon arrival. Chair: Sit <> stand with SBA and no AD Toilet: Not observed. Tub/Shower: Not observed. Comments: Patient ambulating in room from bed > window > around room 2x > bed, impulsive with activity requiring assist to manage O2 tubing which patient uses at baseline. Pain: Pain at rest: 0/10 Pain during activity: 0/10 Location: No pain reported/observed. Upper Extremity Function: Range of Motion: Right:within functional limits Left: within functional limits Strength: Right: within functional limits Left: within functional limits Endurance: limited Oxygen Level: Rest >90% Activity >80s% on 4L, recover with rest. Coordination: intact Sensation: intact Edema: no Dominant Hand: right Comments: Patient reports no concerns with BUEs. Orientation: Cognition: alert Attention: impaired: Activities difficult to engage in: ADLs, functional transfers, safety due to impulsivity Following Directions: intact Safety Awareness: impaired Impulsivity: mild Comments: Patient alert and oriented, pleasant though tangential in conversation. Visual/Perception: Glasses: No Education Education/Training provided: Role of OT, plan of care, ADLs, functional transfers, cognition, safedischarge planning and safety Learners: Patient Readiness: Acceptance Method of Training: Verbal education, demonstration Response: Verbalized/demonstrated understanding, will benefit from continued reinforcement Adaptive Equipment Recommendations Adaptive Equipment Recommended: Continue to assess. Adaptive Equipment Available: shower chair, grab bars tub/shower, grab bars toilet and front-wheeledwalker Plan to obtain adaptive equipment: To further assess. Assessment/Plan Assessment: Patient demonstrates decreased physical conditioning, decreased independence with ADL/IADL tasks, decreased independence with functional mobility and decreased safety judgement/insight into deficits Patient showing a decrease in ADL/transfer performance and will benefit from continued OT. Plan: Patient to be seen 2-4 times a week to work toward above goals Treatment plan will consist of Wednesday thru Wednesday sessions Goals Patient/Family Stated Goal for Session: None stated, patient agreeable to OT session. Goals by Discharge: (1) Patient will tolerate 15-30 minutes U/E exercise to further increase independence with ADL/IADLs. (2) Patient will complete 3x grooming tasks safely standing at the sink with SBA using adaptive equipment as needed. (3) Patient will complete LB dressing safely with SBA using adaptive equipment as needed. (4) Patient will complete toileting safely with SBA using adaptive equipment as needed. (5) Patient will complete functional transfers safely with SBA using adaptive equipment as needed. (6) Patient will complete 15 minutes of continuous UE activity to increase physical conditioning forADL and IADL tasks. (7) Patient will tolerate static standing for 5+ minutes with SBA and AE (prn) to increase ability to participate in ADL's and IADL's. (8) Patient will have AE in place to increase safety with ADLs by discharge. Treatment Provided See above note for detailed evaluation. Provided patient with education regarding ADLs, functional transfers, cognition, safe discharge planning and safety. Charges Treatment/Minutes: Today's Evaluation/Treatment Evaluation Self care/home management: 15 minutes Total for time-based codes: 15 minutes Total treatment time: 30 minutes Evaluation Complexity PMH/Comorbidities that affect Occupational Performance: See above for PMH. Occupational Profile/Medical and Therapy History: LOW - Brief history relating to presenting problem Patient Assessment: LOW - 1-3 performance deficits relating to physical, cognitive, psychosocial limitations/restrictions Clinical Decision Making: LOW - Low complexity, limited amount of treatment options, no assessment modification, no comorbidities Evaluation Complexity: Low Therapist Alpha Pager Number: [phone] ESS ENGINEERING MANAGER Respiratory Therapy - Sarai Galan, CERTIFIED ORTHOTIST - 09/24/2020 1:09 PM CSTI spent 30 Minutes with patient discussing (via telephone) COPD disease management including basic anatomy and physiology; home medications use and benefit (Perforomist, Pulmicort 0.5 mg SVN Duoneb PRNand Albuterol MDI PRN, also new upon discharge per Pulmonary Medicine's recommendations Atrovent SVNTID. Pt. Aware of additional respiratory medications upon discharge, and was able to verbalize frequency, use , and objectives of new home respiratory medications.); Pulm Rehab (declined, pt. No longerdrives); oxygen therapy Pt. Reports to using 3-4L O2. Pt. Has a stationary O2 concentrator for home use, that pt. Is concerned that it is not working properly. Discussed with [facility] and they will change out O2 concentrator and provide portable O2 (tank) for discharge. [facility] also [facility]-up on pt.'s concerns regarding his home astral ventilator. Pt. Has a nebulizer machine that appears to be working properly).; infection control; vaccinations (up to date); allergens and irritants (strong odors, bleach, humidity); nutrition/hydration; airway clearance (pt. has an Aerobika for home use, and Rt staff will bring an Aerobika for pt. to use here); and ACP (pt. Has an ACP and POLST on file). Pt. Stated that he would maybe be interested in Palliative care or hospice services as his goal is to remain at home. I sent a secure chat to Case Mgmt regarding this.); Patient instructed to rinse mouth after taking Pulmicort SVN. [facility] Awaiting a fax from [facility] for Atrovent SVN prescription, will get signature from , and [facility]. I have discussed with Lea. COPD Ed will continue to follow PRN. KELSEY Samaniego CERTIFIED ORTHOTIST, CTTS COPD Education Respiratory Therapy Disease Management [facility] ESS ENGINEERING MANAGER Clinical Team - Soheila Phan RN - 09/24/2020 11:58 AM CSTVerified the following with ANGELIQUE Gotti Code status order: DNR Patient understands and agrees Code status band applied ase Mgmt - Neha Nguyễn LSW - 09/24/2020 11:09 AM CSTCASE MANAGEMENT / SOCIAL SERVICE TRANSITION PLAN - PROGRESS NOTE PLAN: Home with [facility]- Will need New orders Awaiting Patient/Family Decision Regarding Plan of Care Awaiting Medical Doctor Recommendations for Transition Transition Options Being Explored Will Continue to Follow for Support and Progression Towards Final Transition Plan BARRIERS TO TRANSITION: 7L O2, IV steroids, Placement, Palliative care vs hospice DOES ACCEPTING FACILITY REQUIRE COVID TESTING BEFORE DISCHARGE: N/A COMMENTS / PATIENT AND FAMILY RESPONSE TO PLAN: Will need new home health orders. Will need Home Oxygen Evaluation VS Placement Industrial Real Estate Agent called into patient's room x2. Both times he had other disciplines at bedside. He indicated that he was feeling very confused. He requested advertising copy writer to follow up with son. Per ACD, Sister, Mala short substitute consent. Per documentation, Sister requested son Jay be first substitute consent. Patient gave verbal permission to talk to both. Industrial Real Estate Agent did not find a POA on file. Industrial Real Estate Agent called son, Jay. He had just completed his conversation with Rita Nunes CNP, with [facility]. Industrial Real Estate Agent had spoken with Rita as well, previous to their call. Jay [facility] he is anticipating that his father will never return home. He requested that first choice would be to senior care care at [facility]. He has the insurance coverage. Considering that patient is currently Covid positive, the first issue to consider is which facility, if any will accept Covid + patients. Industrial Real Estate Agent profiled to [facility] as patient requested and [facility] as Jay requested. Jay gave verbal approval to submit his information to facilities for placement. Home Health Instructions: Complete referral order for One Chart Referral: [facility] . Patient would benefit from Nursing, Physical Therapy and Occupational Therapy. Face to Face statement must be completed. Order must be completed by or cosigned by attending physician for orders to be valid. Per RT Documentation: Home Medical Equipment:(pt. Has for home use) Neb Machine Home Oxygen:Pt. Reports to using 3-4L,[facility] ASTRAL VENTILATOR:Per home settings,O2 flow rate:3Land DME: [facility] IS PATIENT'S ADMISSION ASSOCIATED WITH TIA, ISCHEMIC, OR HEMORRHAGIC STROKE?: No PATIENT / SUBSTITUTE DECISION MAKER GOAL UPON TRANSITION: First Choice: Home Health: Bath Aid, Home Safety Evaluation, Nurse, Occupational Therapy and Physical Therapy Home: Family/Friend Support ANTICIPATED NEEDS UPON TRANSITION: Home Health: Bath Aid, Home Safety Evaluation, Nurse, Occupational Therapy and Physical Therapy Home: Family/Friend Support RESOURCE(S) PROVIDED: Home Health and Department of [employer] ANTICIPATED MODE OF TRANSPORT UPON TRANSITION: Family Car ANTICIPATED MODE OF TRANSPORT TO AND FROM FOLLOW UP APPOINTMENTS: Family Car VERIFIED CORRECT PHARMACY IS ENTERED FOR DISCHARGE: No TRANSITION ROUNDING COMPLETED WITH THE FOLLOWING: Patient / family Training Systems Officer Attending MD Consulting MD Bedside political director RN Discussed via telephone Secure Chat RT SIGNED: [facility]; Case Management [place], [place] Desk [phone] Route Number [phone] ESS ENGINEERING MANAGER Respiratory Therapy - Terry Muñoz RRT - 09/24/2020 9:33 AM CST COPD Patient admitted for COPD Exacerbation SpO2: 99 % O2 Device: NC - cool humidity Cough/Sputum Production: None Breath Sounds Score: Normal to Clear Dyspnea (SOB) Score: Slight Total BTAS COPD Score: 1 Bronchodilator Therapy Assessment Score Breath Sounds 0 Normal/Clear 1 End Expiratory Wheeze 2 Pronounced Expiratory Wheeze 3 Inspiratory & Expiratory Wheeze 4 Absent or Near Absent Dyspnea 0 None 1 Slight 2 Mild 3 Moderate 4 Severe Total Score 0 1-2 3-4 5-6 7-8 Frequency JAYSON Q4H PRN for increased shortness of breath; continue long-acting bronchodilators JAYSON Q4H PRN for increased shortness of breath; start long - acting bronchodilators JAYSON and Anticholinergic every 4 hours and JAYSON Q2 prn; consider starting long - acting bronchodilators Every 2 hours; if on continuous, then wean JAYSON by 5 mg/hr as tolerated down to 5 mg/hr Every 1 hour up to three treatments then start continuous JAYSON and Anticholinergic Use JAYSON Albuterol 2.5mg and Anticholinergic ipratropium 0.5mg unless continuous therapy is indicated, then use: JAYSON Albuterol 15mg/hr and Anticholinergic ipratropium 0.5mg/hr, wean dose as indicated above. InCheck Dial Flow (L/min): -35 L/min Plan to continue BID Perforomist and Q6 Atrovent and will continue to assess patient every 4 hours per COPD protocol. are Planning - Kathya Herrera RN - 09/24/2020 5:58 AM PROCESS ENGINEERING MANAGER Problem: IMPAIRED GAS EXCHANGE Goal: RESPIRATORY STATUS Description: DEFINITION: Movement of air in and out of the lungs and exchange of carbon dioxide and oxygen at the alveolar level. 1=Severe deviation from normal range, 2=Substantial deviation from normal range, 3=Moderate deviation from normal range, 4=Mild deviation from normal range, 5=No deviationfrom normal range. Flowsheets (Taken 09/24/2020 0544) Initial Score: 3 Target Score: 4 Plan of care reviewed with: Patient Patient specific goal for the day: Patient saturations will be >90% on 3-4 Liters, which is his baseline at home. Patient specific goal for the stay: Pt will be back to his baseline Achieve goal for stay: By discharge Patient Progress: Pt has been using anywhere from 3-5 Liters of O2. espiratory Therapy - Sarai Galan RRT - 09/23/2020 3:31 PM CSTRespiratory Therapy Discharge Recommendations Patient Name: Sarai Patton : 1945 Medications: Short-acting Beta-agonists: Ventolin HFA (Albuterol Sulfate) 2 inhalations every 4 hours as needed for shortness of breath. Use with spacer Long-acting Beta-agonists: Perforomist 20 mcg (Formoterol Fumarate) inhale 1 by nebulizer every 12 hours. Short-acting Anti-cholinergic: Ipratropium Sumner 0.02% Inhale 1 by nebulizer 3 times a day Inhaled Corticosteroids: Pulmicort 0.5 mg/2 mL (Budesonide) Inhale 1 by nebulizer twice a day followed by oral rinsing. Short-acting Beta-agonists/Short-acting Anticholinergic: Duoneb (Albuterol/Ipratropium Sumner) Inhale 1 by nebulizer one time per day (per Medicare guidelines) Home Medical Equipment: (pt. Has for home use) Neb Machine Home Oxygen: Pt. Reports to using 3-4L, DME: [facility] ASTRAL VENTILATOR:Per home settings, O2 flow rate: 3L and [facility]ME[facility] and Consult Recommendations: Home Oxygen Evaluation prior to discharge, if appropriate Here are the recommendations for respiratory medications at discharge for Sarai. Thank you for your attention to this matter. Please feel free to contact me with any questions or concerns. KELSEY Samaniego CERTIFIED ORTHOTIST, CTTS COPD Education Respiratory Therapy Disease Management [facility] are Planning - Favio Bryant RD - 09/23/2020 1:53 PM PROCESS ENGINEERING MANAGER Problem: IMBALANCED NUTRITION: LESS THAN BODY REQUIREMENTS Goal: NUTRITIONAL STATUS: NUTRIENT INTAKE Description: DEFINITION: Nutrient intake to meet metabolic needs. 1=Not adequate, 2=Slightly adequate, 3=Moderately adequate, 4=Substantially adequate, 5=Totally adequate. Outcome: NOC Rating 4 Flowsheets (Taken 09/23/2020 1352) Initial Score: 4 Target Score: 4 Plan of care reviewed with: Patient Patient specific goal for the day: Patient will consume >75% of 3 meals/day Patient specific goal for the stay: Patient will consume >75% of his estimated nutritional needs Achieve goal for stay: By discharge Patient Progress: The patient is recieving a Regular diet and continues to have a good appetite as he was recently in the hospital last week. Today at breakfast he did consume 100% of his breakfast which was 749 calories and 39 grams of protein. Will add snacks and supplements. He has had times of c onfusion noted and nursing to assist with ordering meals as needed. Will monitor. Note: Recommendations: Encourage 3 balanced meals per day Nursing to assist the patient with ordering meals as needed ESS ENGINEERING MANAGER Respiratory Therapy - Jaden So RRT - 09/23/2020 12:44 PM CST COPD Patient admitted for COPD Exacerbation SpO2: 96 % O2 Device: NC - cool humidity Cough/Sputum Production: None Breath Sounds Score: Normal to Clear Dyspnea (SOB) Score: Slight Total BTAS COPD Score: 1 Bronchodilator Therapy Assessment Score Breath Sounds 0 Normal/Clear 1 End Expiratory Wheeze 2 Pronounced Expiratory Wheeze 3 Inspiratory & Expiratory Wheeze 4 Absent or Near Absent Dyspnea 0 None 1 Slight 2 Mild 3 Moderate 4 Severe Total Score 0 1-2 3-4 5-6 7-8 Frequency JAYSON Q4H PRN for increased shortness of breath; continue long-acting bronchodilators JAYSON Q4H PRN for increased shortness of breath; start long - acting bronchodilators JAYSON and Anticholinergic every 4 hours and JAYSON Q2 prn; consider starting long - acting bronchodilators Every 2 hours; if on continuous, then wean JAYSON by 5 mg/hr as tolerated down to 5 mg/hr Every 1 hour up to three treatments then start continuous JAYSON and Anticholinergic Use JAYSON Albuterol 2.5mg and Anticholinergic ipratropium 0.5mg unless continuous therapy is indicated, then use: JAYSON Albuterol 15mg/hr and Anticholinergic ipratropium 0.5mg/hr, wean dose as indicated above. InCheck Dial Flow (L/min): -35 L/min Plan to change to Atrovent Q6 and Perforomist BID and will continue to assess patient every 4 hours per COPD protocol. Has medical equipment at home that includes Bipap at night. ESS ENGINEERING MANAGER Nutrition Team - Favio Bryant RD - 09/23/2020 12:27 PM CST Nutrition Therapy Initial Assessment Hospital Day: 1 days Active Problems: ? Acute hypoxic respiratory failure superimposed upon Rondec hypoxic and hypercapnic respiratory failure, acute respiratory failure cause unclear - questioning worsening lung tumor burden vs possible COPD exacerbation ? Advanced lung cancer ? 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 NUTRITION ASSESSMENT The was just recently admitted to the hospital last week for COVID-19 as well as blood loss anemia and GI bleed, and discharged on 09/20/20, however he came back to the ED on 09/22/20 with increased shortness of breath. Per the hospital H&P there is no sign of pneumonia as well as there is no clearsign of fluid overload. Also per the H&P it is questioned how much the patient will improve dueto his lung cancer. The patient has had some noted confusion by nursing and will monitor this possibly affecting his appetite/PO intakes however so far today the patient did consume 100% of his breakfast which was 749 calories and 39 grams of protein. Anthropometrics: Height: 170.2 cm (5' 7.01") Admission Weight: 86.6 kg (191 lb) as of 09/22/2020 per bed scale Most Recent Weight: 86.6 kg (191 lb) (09/22/20 2100) per bed scale BMI: Body mass index is 29.91 kg/m. IBW: 67 kg %IBW: 129% (based on admit weight) Usual Body Weight:~ 190 lbs Unintentional Weight Loss:No significant wt change notedper EMR review Adjusted Body Weight: 72 kg Weight Change: No new weight since admission Estimated Needs: 2040-2100kcal/day([place] [address] Jeor x1.3Using: Admission Weight) 85-95gm protein(1.2-1.3gm/kg Using: Adjusted Body Weight) Fluids per MD Intake Records: Intake Prior to Admit:Adequate From RD note on 09/20/20: Estimated average intake over the last 3 days: 2330 kcal and 65 gm protein, which meets: >100 % of estimated kcal needs and 76 % of estimated protein needs. From 09/16/20 RD note and diet history has not changed per patient: Sarai reports he usually has a breakfast and then he divides his MOWs meal into lunch and supper. He reports his appetite is good at home as well. He does like to snack on items throughout the day as well and reports he had to decreasecut down on his snacking/eating due to he was gaining to much weight. He states he grew up consuming starch, sugar and butter and has not changed his ways. He reports he does like to eat chocolate aswell. Current Intake:So far the patient has ordered only breakfast this morning since admit and consumed 100% which was 749 calories and 39 grams of protein Current Diet: Nutrition (From admission, onward) Start Ordered 09/22/202134 Diet - Regular Now Question: Standard Diets Answer: Regular 09/22/202132 Physical Assessment: ? Edema: none documented GI Assessment: ? Abdominal exam: WDL, per supervisor production department at 1004 today. ? Stool Frequency: Pt has not had a documented BM since admission Wounds/Pressure Points: (per supervisor production department at 1004 today) ? Pressure Points: WDL Functional Status: Weakness Confused, Forgetful (per supervisor production department at 1004 today) Nutrition Focused Physical Exam: NFPE not completed due to patient in SCU and Nutrition Therapy not visiting to limit exposure. Nutritionally-Relevant Medications, Vitamins and Minerals: Carvedilol, Ceftin, Digoxin, Lisinopril, Solu-Medrol, Omeprazole, Crestor Nutritionally-Relevant Biochemical Data: (09/23/2020) Glucose 143 high Albumin 3.6 Hgb 7.9 low Allergies/Food Intolerance: Sarai is allergic to codeine; nicorette [commit]; and valium. Culturally Druze Needs: NA INTERVENTIONS Encouraged adequate calories and optimal protein in small, frequent meals and snacks Will send snacks and supplements 2 times/day Obtained diet history EMR reviewed MONITORING/EVALUATION Monitor ability to consume and tolerate adequate intake to approximate estimated needs with accomodation of preferences and tolerances until intake is sustained within desirable limits Monitor I&O, weight trends, nutrition-related labs and medications, clinical status, and planof care r/t need for nutrition intervention and provide as warranted Nutrition Therapy will reassess every 1-4 days Favio Bryant, RD, LRD Pager [phone] ESS ENGINEERING MANAGER Home Health - Swapna Trevizo LSW - 09/23/2020 11:50 AM [facility] Digital Forensics Examiner Note: Industrial Real Estate Agent received update from ANGELIQUE Coley that patient was admitted to the hospital on 09/22. [facility] received referral for home care services at prior hospital discharge on 09/20 . Home care was only able to complete admission nurse visit, before current hospitalization. [facility] will need new home care order at discharge, if patient is returning home with home care services. ANGELIQUE CHAN to update advertising copy writer or [facility] referral office once discharge plan is determined. [facility] Liaison will remain available as needed RICO Crain [facility] Examin[facility] Pager #[phone] ase Mgmt - Darlyn Coley RN - 09/23/2020 9:07 AM CST CASE MANAGEMENT / SOCIAL SERVICE TRANSITION PLAN - INITIAL ASSESSMENT TRANSITION PLAN: Will Continue to Follow for Support and Progression Towards Final Transition Plan BARRIERS TO TRANSITION: Discharge Needs to be Determined Medical barriers:7L O2, IV Steroids COMMENTS / PATIENT AND FAMILY RESPONSE TO PLAN: Called and spoke with Sarai today. He was slightly confused when talking with him but this advertising copy writer was able to re-orientate him. He stated that he lives alone in a nice apartment. He stated that he wears oxygen all the time and it is usually at 3-4 L O2. He stated that he had a Public Health Nurse thatwould come out and assist with medication set up. Noted on last admission that he was set up with [facility] prior to discharge. Sent a messageto Fanbase with [facility] inquiring if his Public Health nurse would still follow while he was receiving their services. Per Jaelyn, Public Health nurse would be on hold while they are involved. If he goes home with Home Health on discharge, new Home Health orders will be needed as they had only seen for an admission visit. ADMISSION DX: ICD-10-CM 1. Hypoxia R09.02 2. SOB (shortness of breath) R06.02 3. Hypotension, unspecified hypotension type I95.9 4. Lab test positive for detection of COVID-19 virus U07.1 PATIENT STATUS: OP in a Bed RELEASE OF INFORMATION: Yes -- verbal for: discharge planning SOURCES OF INFORMATION (See demographics for contact information): Medical Doctor Medical Record Patient CURRENT LIVING SITUATION / LEVEL OF ASSISTANCE: Lives alone Requires Some Assistance Four-Wheeled Walker with Hand Brakes and a Seat Drives occasionally in town Wears 3L O2 at baseline COMMUNITY SERVICES: Home Health HEALTHCARE DIRECTIVE: Yes-On File and reviewed POWER OF JEWEL BEARING MAKER: Healthcare Power of Concrete Pipe Machine Operator FINANCIAL CONCERNS: Medical Assistance No Concerns PRIMARY CARE PHYSICIAN: Yes Roxanna Maynard PA-C : No IS PATIENT'S ADMISSION ASSOCIATED WITH TIA, ISCHEMIC, OR HEMORRHAGIC STROKE?: No LANGUAGE / COMMUNICATION BARRIERS: No PATIENT / SUBSTITUTE DECISION MAKER GOAL UPON TRANSITION: First Choice: Home Health: Nurse, Occupational Therapy and Physical Therapy Home: Family/Friend Support ANTICIPATED NEEDS, TRANSITION CHOICES OFFERED: Home Health: Nurse, Occupational Therapy and Physical Therapy Home: Family/Friend Support RESOURCE(S) PROVIDED: nothing needed at this time DOES PATIENT HAVE CLOTHING TO WEAR AT DISCHARGE? Yes ANTICIPATED MODE OF TRANSPORT UPON DISCHARGE: Family Car VERIFIED CORRECT PHARMACY IS ENTERED FOR DISCHARGE: Yes - Pharmacy: [facility] [id number] CURRENT READMISSION RISK SCORE Predictive Risk Score Risk of Unplanned Readmission: 29.6 Please refer to readmission risk assessment flowsheet for further details. SIGNED: Darlyn Coley RN Case Manager Phone #: [phone] Please page: Darlyn Coley linical Team - Rocky Ariza RN - 09/23/2020 5:22 AM CSTVerified the following with (Patrick López CCL) Code status order: MOD-DNR Jay Salanderunderstands and agrees Code status band applied are Planning - Rocky Ariza RN - 09/22/2020 10:21 PM PROCESS ENGINEERING MANAGER Problem: IMPAIRED GAS EXCHANGE Goal: RESPIRATORY STATUS Description: DEFINITION: Movement of air in and out of the lungs and exchange of carbon dioxide and oxygen at the alveolar level. 1=Severe deviation from normal range, 2=Substantial deviation from normal range, 3=Moderate deviation from normal range, 4=Mild deviation from normal range, 5=No deviationfrom normal range. Outcome: NOC Rating 3 Flowsheets (Taken 09/22/20202217) Initial Score: 3 Target Score: 5 Plan of care reviewed with: Patient Patient specific goal for the day: patient will not need anymore supplemental oxygen Patient specific goal for the stay: patient will be weaned down to the 5L he is at baseline Achieve goal for stay: By discharge Patient Progress: patient currently on 7L >95% saturations Note: Patient is confused. Oriented to self only, able to swallow pills whole one at a time. On 7Lvia oxymask, lungs diminished with fine crackles. Patient has not been out of bed, but seems to be bed bound at this time. 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 Plan/Intervention continue to monitor, if need arises will turn q2h and offload weight to heels documented in this encounter Plan of Treatment Date Type Specialty Care Team Description 09/26/2020 Office Visit [facility] Roxanna Cifuentes PA-C [address] [place] [address] [phone] 09/30/2020 Appointment Radiology Delores Galeas MD [address] [place] [address] [phone] 09/30/2020 Appointment Radiology Delores Galeas MD [address] [place] [address] [phone] 09/30/2020 Office Visit Radiation Oncology Delores Galeas MD [address] [place] [address] [phone] 10/01/2020 Clinical Support Cardiovascular Services Visit Name Type Priority Associated Date/Time Diagnoses PREPARE AND HOLD Lab STAT 09/25/2020 6:30 RED BLOOD CELLS IN AM PROCESS ENGINEERING MANAGER UNITS - BLOOD BANK, 2 Units TRANSFUSE RED BLOOD Nursing Transfusion STAT 0 09/25/2020 7:53 CELLS IN UNITS, 2 AM PROCESS ENGINEERING MANAGER Units TRANSFUSE RED BLOOD Nursing Transfusion STAT 0 09/25/2020 7:53 CELLS IN UNITS AM PROCESS ENGINEERING MANAGER Name Type Priority Associated Diagnoses Order S chedule COMPLETE BLOOD COUNT WITH Lab Routine Ea rly AM draw for labs DIFFERENTIAL until discontin ued starting 2020, 3 completed BASIC METABOLIC PANEL Lab Routine Early AM draw for labs until discontin ued starting 2020, 3 completed MAGNESIUM Lab Routine Early AM draw f or labs until discontin ued starting 2020, 3 completed PREPARE AND HOLD RED Lab STAT Once fo r 1 Occurrences BLOOD CELLS IN UNITS - start ing 09/25/2020 until BLOOD BANK, 2 Units 09/25/19 21 OCCULT BLOOD, DIAGNOSTIC Lab Routine Onc e for 1 Occurrences (GUAIAC) POCT starting 09/25 until 09/25/2020 documented as of this encounter Procedures Procedure Name Priority Date/Time Associated Comments Diagnosis LAB ONLY-COMPLETE Routine 09/26/2020 6:24 Result s for this BLOOD COUNT WITH AM PROCESS ENGINEERING MANAGER procedure a re in DIFFERENTIAL the results section. MAGNESIUM Routine 09/26/2020 6:24 Results for this AM PROCESS ENGINEERING MANAGER procedure are i n the results section. BASIC METABOLIC PANEL Routine 09/26/2020 6:24 Re sults for this AM PROCESS ENGINEERING MANAGER procedure are i n the results section. LAB ONLY-COMPLETE Routine 09/26/2020 6:24 Result s for this BLOOD COUNT WITH AM PROCESS ENGINEERING MANAGER procedure a re in DIFFERENTIAL the results section. HEMOGLOBIN Routine 09/25/2020 2:13 Results for this PM PROCESS ENGINEERING MANAGER procedure are i n the results section. PREPARE AND HOLD RED STAT 09/25/2020 7:24 Res ults for this BLOOD CELLS IN UNITS - AM PROCESS ENGINEERING MANAGER proce dure are in BLOOD BANK the results section. LAB ONLY-COMPLETE Routine 09/25/2020 5:53 Result s for this BLOOD COUNT WITH AM PROCESS ENGINEERING MANAGER procedure a re in DIFFERENTIAL the results section. MAGNESIUM Routine 09/25/2020 5:53 Results for this AM PROCESS ENGINEERING MANAGER procedure are i n the results section. BASIC METABOLIC PANEL Routine 09/25/2020 5:53 Re sults for this AM PROCESS ENGINEERING MANAGER procedure are i n the results section. LAB ONLY-COMPLETE Routine 09/25/2020 5:53 Result s for this BLOOD COUNT WITH AM PROCESS ENGINEERING MANAGER procedure a re in DIFFERENTIAL the results section. TYPE AND SCREEN STAT 09/25/2020 5:42 Results for this AM PROCESS ENGINEERING MANAGER procedure are i n the results section. LAB ONLY-COMPLETE Routine 09/24/2020 9:46 Result s for this BLOOD COUNT WITH AM PROCESS ENGINEERING MANAGER procedure a re in DIFFERENTIAL the results section. MAGNESIUM Routine 09/24/2020 9:46 Results for this AM PROCESS ENGINEERING MANAGER procedure are i n the results section. BASIC METABOLIC PANEL Routine 09/24/2020 9:46 Re sults for this AM PROCESS ENGINEERING MANAGER procedure are i n the results section. LAB ONLY-COMPLETE Routine 09/24/2020 9:46 Result s for this BLOOD COUNT WITH AM PROCESS ENGINEERING MANAGER procedure a re in DIFFERENTIAL the results section. LAB ONLY-MANUAL Routine 09/23/2020 5:52 Results for this DIFFERENTIAL AM PROCESS ENGINEERING MANAGER procedure are i n the results section. LAB ONLY-COMPLETE Routine 09/23/2020 5:52 Result s for this BLOOD COUNT WITH AM PROCESS ENGINEERING MANAGER procedure a re in DIFFERENTIAL the results section. BLOOD GASES VENOUS Routine 09/23/2020 5:52 Resul ts for this AM PROCESS ENGINEERING MANAGER procedure are i n the results section. MAGNESIUM Routine 09/23/2020 5:52 Results for this AM PROCESS ENGINEERING MANAGER procedure are i n the results section. RENAL FUNCTION PANEL Routine 09/23/2020 5:52 Res ults for this AM PROCESS ENGINEERING MANAGER procedure are i n the results section. LAB ONLY-COMPLETE Routine 09/23/2020 5:52 Result s for this BLOOD COUNT WITH AM PROCESS ENGINEERING MANAGER procedure a re in DIFFERENTIAL the results section. CTA CHEST STAT 09/22/2020 3:42 Results for this PM PROCESS ENGINEERING MANAGER procedure are i n the results section. XRAY CHEST PORTABLE MATHEW 09/22/2020 2:55 Resu lts for this PM PROCESS ENGINEERING MANAGER procedure are i n the results section. BLOOD GASES VENOUS STAT 09/22/2020 2:36 Resul ts for this WITH LACTIC ACID PM PROCESS ENGINEERING MANAGER procedure a re in the results section. LAB ONLY-COMPLETE STAT 09/22/2020 2:02 Result s for this BLOOD COUNT WITH PM PROCESS ENGINEERING MANAGER procedure a re in DIFFERENTIAL the results section. PROCALCITONIN STAT 09/22/2020 2:02 Results fo r this PM PROCESS ENGINEERING MANAGER procedure are i n the results section. C-REACTIVE PROTEIN STAT 09/22/2020 2:02 Resul ts for this (INFLAMMATION) PM PROCESS ENGINEERING MANAGER procedure are in the results section. TROPONIN I STAT 09/22/2020 2:02 Results for this PM PROCESS ENGINEERING MANAGER procedure are i n the results section. COMPREHENSIVE STAT 09/22/2020 2:02 Results fo r this METABOLIC PANEL PM PROCESS ENGINEERING MANAGER procedure ar e in the results section. LAB ONLY-COMPLETE STAT 09/22/2020 2:02 Result s for this BLOOD COUNT WITH PM PROCESS ENGINEERING MANAGER procedure a re in DIFFERENTIAL the results section. BRAIN NATRIURETIC STAT 09/22/2020 2:02 Result s for this PEPTIDE PM PROCESS ENGINEERING MANAGER procedure are i n the results section. EKG Routine 09/22/2020 1:45 Results for this PM PROCESS ENGINEERING MANAGER procedure are i n the results section. documented in this encounter Results LAB ONLY-COMPLETE BLOOD COUNT WITH DIFFERENTIAL (09/26/2020 6:24 AM PROCESS ENGINEERING MANAGER) Pathologist Sig nature WBC 12.4 (H) 4.0 - 11.0 K/uL [facility] RBC 3.47 (L) 4.40 - 5.80 [facility] M/uL [facility]IN[facility] Hemoglobin 8.9 (L) 13.5 - 17.5 [facility] g/dL [facility] Hematocrit 30.1 (L) 40.0 - 50.0 % [facility] MCV 86.7 80.0 - 98.0 fL [facility] MCH 25.6 25.5 - 34.0 pg [facility] MCHC 29.6 (L) 31.5 - 36.5 [facility] g/dL [facility] RDW-CV 16.7 (H) 11.5 - 15.5 % [facility] RDW-SD 53.1 (H) 35.5 - 50.0 fl [facility] Platelet Count 281 140 - 400 K/uL [facility] MPV 8.7 8.5 - 12.0 fL [facility] Seg Neut Absolute 9.8 (H) 1.8 - 8.0 K/uL [facility] Lymphocytes Absolute 0.9 0.8 - 4.1 K/uL [facility] Monocytes Absolute 1.7 (H) 0.0 - 1.0 K/uL [facility] Eosinophils Absolute 0.1 0.0 - 0.7 K/uL [facility] Basophil Absolute 0.0 0.0 - 0.2 K/uL [facility] Immature Granulocyte 0.03 0.00 - 0.06 [facility] Absolute K/uL [facility] Neutrophils Abs. 9,800 /uL [facility] (Segs and Bands) [facility] Neutrophils Percent 78.7 % [facility] Lymphocytes Percent 6.9 % [facility] Monocytes Percent 13.6 % [facility] Immature Granulocyte 0.2 % [facility] Percent CLINIC Eosinophils Percent 0.6 % [facility] Basophil Percent 0.0 % [facility] Nucleated RBC 0 /100 WBC's [facility] Specimen Blood - Blood specimen (specimen) Performing Organization Address City/[facility]/Zipcode Phone Number [address] [address] [phone] MAGNESIUM (09/26/2020 6:24 AM PROCESS ENGINEERING MANAGER) Pathologist [facility] Magnesium 2.4 1.8 - 2.4 mg/dL [facility] Specimen Blood - Blood specimen (specimen) Performing Organization Address [facility]/Zipcode Phone Number [address] [address] BASIC METABOLIC PANEL (09/26/2020 6:24 AM PROCESS ENGINEERING MANAGER) Pathologist [facility] Glucose 88 70 - 100 mg/dL [facility] BUN 23 (H) 6 - 22 mg/dL [facility] Creatinine 0.90 0.80 - 1.30 [facility] mg/dL [facility] BUN/Creatinine Ratio 25.6 (H) 10.0 - 25.0 [facility] Sodium 139 135 - 145 meq/L [facility] Potassium 4.6 3.5 - 5.3 meq/L [facility] Chloride 100 99 - 110 meq/L [facility] CO2 33 (H) 20 - 29 meq/L [facility] Anion Gap with K 11 6 - 20 meq/L [facility] Calcium 7.9 (L) 8.5 - 10.5 [facility] mg/dL CLINIC Age 75 Years [facility] eGFR Non- 82 >=60 [facility] Greek mL/min/1.73m2 CLINIC eGFR >90 >=60 [facility] mL/min/1.73m2 [facility] Specimen Blood - Blood specimen (specimen) Performing Organization Address [facility]/Zipcode Phone Number [address] [address] [phone] HEMOGLOBIN (09/25/2020 2:13 PM PROCESS ENGINEERING MANAGER) Pathologist Sig nature Hemoglobin 8.9 (L) 13.5 - 17.5 g/dL [facility] Specimen Blood - Blood specimen (specimen) Performing Organization Address [facility]/Zipcode Phone Number [address] [address] PREPARE AND HOLD RED BLOOD CELLS IN UNITS - BLOOD BANK (09/25/2020 7:24 AM PROCESS ENGINEERING MANAGER) BPAM Product Code [id number] LAB BPAM Unit Number [id number] LAB Unit ABO Type A LAB Unit Rh Type POS LAB XM Interp Compatible LAB BPAM Dispense Status TR LAB BPAM Blood [id number] LAB Expiration Date BPAM Coding System 6200 LAB Product Code RBC, Leukoreduced LAB [id number] Unit ID [id number] LAB Product Status Transfused LAB Specimen Performing Organization Address [facility] Phone Number LAB LAB ONLY-COMPLETE BLOOD COUNT WITH DIFFERENTIAL (09/25/2020 5:53 AM PROCESS ENGINEERING MANAGER) Pathologist [facility] WBC 17.7 (H) 4.0 - 11.0 K/uL [facility] RBC 2.82 (L) 4.40 - 5.80 [facility] M/uL CLINIC Hemoglobin 6.9 (LL) 13.5 - 17.5 [facility] g/dL [facility] Hematocrit 23.8 (L) 40.0 - 50.0 % [facility] MCV 84.4 80.0 - 98.0 fL [facility] MCH 24.5 (L) 25.5 - 34.0 pg [facility] MCHC 29.0 (L) 31.5 - 36.5 [facility] g/dL [facility] RDW-CV 16.3 (H) 11.5 - 15.5 % [facility] RDW-SD 50.8 (H) 35.5 - 50.0 fl [facility] Platelet Count 309 140 - 400 K/uL [facility] MPV 8.4 (L) 8.5 - 12.0 fL [facility] Seg Neut Absolute 15.9 (H) 1.8 - 8.0 K/uL [facility] Lymphocytes Absolute 0.4 (L) 0.8 - 4.1 K/uL [facility] Monocytes Absolute 1.3 (H) 0.0 - 1.0 K/uL [facility] Eosinophils Absolute 0.0 0.0 - 0.7 K/uL [facility] Basophil Absolute 0.0 0.0 - 0.2 K/uL [facility] Immature Granulocyte 0.06 0.00 - 0.06 [facility] Absolute K/uL [facility] Neutrophils Abs. 15,900 /uL [facility] (Segs and Bands) [facility] Neutrophils Percent 89.8 % [facility] Lymphocytes Percent 2.4 % [facility] Monocytes Percent 7.4 % [facility] Immature Granulocyte 0.3 % [facility] Percent CLINIC Eosinophils Percent 0.0 % [facility] Basophil Percent 0.1 % [facility] Nucleated RBC 0 /100 WBC's [facility] Specimen Blood - Blood specimen (specimen) Performing Organization Address City/[facility]/Zipcode Phone Number [address] [phone] MAGNESIUM (09/25/2020 5:53 AM PROCESS ENGINEERING MANAGER) Pathologist Sig nature Magnesium 2.6 (H) 1.8 - 2.4 mg/dL [facility] Specimen Blood - Blood specimen (specimen) Performing Organization Address [facility]ode Phone Number [address] [phone] BASIC METABOLIC PANEL (09/25/2020 5:53 AM PROCESS ENGINEERING MANAGER) Pathologist Sig nature Glucose 142 (H) 70 - 100 mg/dL [facility] BUN 25 (H) 6 - 22 mg/dL [facility] Creatinine 0.93 0.80 - 1.30 [facility] mg/dL CLINIC BUN/Creatinine Ratio 26.9 (H) 10.0 - 25.0 [facility] Sodium 138 135 - 145 meq/L [facility] Potassium 4.8 3.5 - 5.3 meq/L [facility] Chloride 98 (L) 99 - 110 meq/L [facility] CO2 35 (H) 20 - 29 meq/L [facility] Anion Gap with K 10 6 - 20 meq/L [facility] Calcium 7.8 (L) 8.5 - 10.5 [facility] mg/dL [facility] Age 75 Years [facility] eGFR Non- 79 >=60 [facility] Greek mL/min/1.73m2 [facility] eGFR >90 >=60 [facility] mL/min/1.73m2 [facility] Specimen Blood - Blood specimen (specimen) Performing Organization Address [facility] Phone Number [address] [address] [phone] TYPE AND SCREEN (09/25/2020 5:42 AM PROCESS ENGINEERING MANAGER) Pathologist [facility] ABO Type A [facility] BLOOD BANK Rh Type Positive [facility]LOOD [facility] Antibody Screen Negative [facility] Comment: [facility] BLOOD BANK Allogenic Red Cells Available 09-25-20 Expiration Date 09/28/2020 23:59 [facility]OD [facility] Specimen Blood - Blood specimen (specimen) Performing Organization Address [facility] Phone Number [facility] BLOOD [facility] [address] [place] [address] [phone] LAB ONLY-COMPLETE BLOOD COUNT WITH DIFFERENTIAL (09/24/2020 9:46 AM PROCESS ENGINEERING MANAGER) Pathologist Sig nature WBC 19.4 (H) 4.0 - 11.0 K/uL [facility] RBC 3.12 (L) 4.40 - 5.80 [facility] M/uL [facility] Hemoglobin 7.9 (L) 13.5 - 17.5 [facility] g/dL [facility] Hematocrit 27.1 (L) 40.0 - 50.0 % [facility] MCV 86.9 80.0 - 98.0 fL [facility] MCH 25.3 (L) 25.5 - 34.0 pg [facility] MCHC 29.2 (L) 31.5 - 36.5 [facility] g/dL [facility] RDW-CV 16.0 (H) 11.5 - 15.5 % [facility] RDW-SD 51.5 (H) 35.5 - 50.0 fl [facility] Platelet Count 380 140 - 400 K/uL [facility] MPV 8.6 8.5 - 12.0 fL [facility] Seg Neut Absolute 18.1 (H) 1.8 - 8.0 K/uL [facility] Lymphocytes Absolute 0.4 (L) 0.8 - 4.1 K/uL [facility] Monocytes Absolute 0.8 0.0 - 1.0 K/uL [facility] Eosinophils Absolute 0.0 0.0 - 0.7 K/uL [facility] Basophil Absolute 0.0 0.0 - 0.2 K/uL [facility] Immature Granulocyte 0.05 0.00 - 0.06 [facility] Absolute K/uL CLINIC Neutrophils Abs. 18,100 /uL [facility] (Segs and Bands) [facility] Neutrophils Percent 93.7 % [facility] Lymphocytes Percent 2.1 % [facility] Monocytes Percent 3.9 % [facility] Immature Granulocyte 0.3 % [facility] Percent CLINIC Eosinophils Percent 0.0 % [facility] Basophil Percent 0.0 % [facility] Nucleated RBC 0 /100 WBC's [facility] Specimen Blood - Blood specimen (specimen) Performing Organization Address [facility] Phone Number [address] [address] MAGNESIUM (09/24/2020 9:46 AM PROCESS ENGINEERING MANAGER) Pathologist Sig nature Magnesium 2.6 (H) 1.8 - 2.4 mg/dL [facility] Specimen Blood - Blood specimen (specimen) Performing Organization Address [facility] Phone Number [address] [phone] BASIC METABOLIC PANEL (09/24/2020 9:46 AM PROCESS ENGINEERING MANAGER) Pathologist Sig nature Glucose 134 (H) 70 - 100 mg/dL [facility] BUN 28 (H) 6 - 22 mg/dL [facility] Creatinine 1.03 0.80 - 1.30 [facility] mg/dL [facility] BUN/Creatinine Ratio 27.2 (H) 10.0 - 25.0 [facility] Sodium 138 135 - 145 meq/L [facility] Potassium 4.7 3.5 - 5.3 meq/L [facility] Chloride 97 (L) 99 - 110 meq/L [facility] CO2 33 (H) 20 - 29 meq/L [facility] Anion Gap with K 13 6 - 20 meq/L [facility] Calcium 8.3 (L) 8.5 - 10.5 [facility] mg/dL [facility] Age 75 Years [facility] eGFR Non- 71 >=60 [facility] Greek mL/min/1.73m2 [facility] eGFR 86 >=60 [facility] mL/min/1.73m2 CLINIC Specimen Blood - Blood specimen (specimen) Performing Organization Address [facility] Phone Number [address] [address] [phone] LAB ONLY-MANUAL DIFFERENTIAL (09/23/2020 5:52 AM PROCESS ENGINEERING MANAGER) Neutrophils Abs. (Segs 10,735 /uL [facility] and [facility] Seg Neut Absolute 10.7 (H) 1.8 - 8.0 K/uL [facility] Lymphocytes Absolute 0.5 (L) 0.8 - 4.1 K/uL [facility] Monocytes Absolute 0.1 0.0 - 1.0 K/uL [facility] Neutrophils Percent 95.0 % [facility] Lymphocytes Percent 4.0 % [facility] Monocytes Percent 1.0 % [facility] Platelet Morphology Normal [facility] Polychromasia 1+ [facility] Specimen Blood - Blood specimen (specimen) Performing Organization Address [facility] Centercode Phone Number [address] [place] [address] LAB ONLY-COMPLETE BLOOD COUNT WITH DIFFERENTIAL (09/23/2020 5:52 AM PROCESS ENGINEERING MANAGER) Pathologist Sig nature WBC 11.3 (H) 4.0 - 11.0 K/uL [facility] RBC 3.08 (L) 4.40 - 5.80 M/uL [facility] Hemoglobin 7.9 (L) 13.5 - 17.5 g/dL [facility] Hematocrit 26.9 (L) 40.0 - 50.0 % [facility] MCV 87.3 80.0 - 98.0 fL [facility] MCH 25.6 25.5 - 34.0 pg [facility] MCHC 29.4 (L) 31.5 - 36.5 g/dL [facility] RDW-CV 15.8 (H) 11.5 - 15.5 % [facility] RDW-SD 50.7 (H) 35.5 - 50.0 fl [facility] Platelet Count 329 140 - 400 K/uL [facility] MPV 8.7 8.5 - 12.0 fL [facility] Specimen Blood - Blood specimen (specimen) Narrative Performed At A previously reported component Auto NRBCs is no longe r [facility] reported. Performing Organization Address City/State/Zipcode Phone Number [facility] [address] [place] [address] [phone] BLOOD GASES VENOUS (09/23/2020 5:52 AM PROCESS ENGINEERING MANAGER) pH Venous 7.36 7.30 - 7.45 [facility] RESPIRATORY THERAPY pCO2 Venous 66 (H) 35 - 50 mmHg [facility] RESPIRATORY THERAPY pO2 Venous 31 (L) 35 - 45 MMHG [facility] RESPIRATORY THERAPY Base Excess Venous 10 (H) -2 - 2 meq/L [facility] RESPIRATORY THERAPY HCO3 Venous 37 (H) 20 - [address] [facility] mmol/L [facility] RESPIRATORY THERAPY O2 Saturation % 56 (L) 60 - 80 % [facility] Venous [facility] RESPIRATORY THERAPY Carbon Monoxide 1.7 0.0 - 3.0 % [facility] RESPIRATORY THERAPY Methemoglobin 0.7 0.0 - 3.0 % [facility] RESPIRATORY THERAPY p50 27.76 25.00 - [facility] 29.00 mmHg [facility] RESPIRATORY THERAPY Allens Test Allens Test is [facility] not Required [facility] RESPIRATORY THERAPY Collection Site Venous [facility] RESPIRATORY THERAPY O2 Source Unknown [facility] RESPIRATORY THERAPY Specimen Blood - Venous blood specimen (specimen) Performing Organization Address [facility] Cent[facility]ode Phone Number [address] [address] RESPIRATORY THERAPY MAGNESIUM (09/23/2020 5:52 AM PROCESS ENGINEERING MANAGER) Pathologist Sig nature Magnesium 2.2 1.8 - 2.4 mg/dL [facility] Specimen Blood - Blood specimen (specimen) Performing Organization Address [facility] Cent[facility]ode Phone Number [address] [address] [phone] RENAL FUNCTION PANEL (09/23/2020 5:52 AM PROCESS ENGINEERING MANAGER) Pathologist Sig nature Glucose 143 (H) 70 - 100 mg/dL [facility] BUN 20 6 - 22 mg/dL [facility] Creatinine 0.88 0.80 - 1.30 [facility] mg/dL [facility] BUN/Creatinine Ratio 22.7 10.0 - 25.0 [facility] Sodium 135 135 - 145 meq/L [facility] Potassium 4.7 3.5 - 5.3 meq/L [facility] Chloride 95 (L) 99 - 110 meq/L [facility] CO2 32 (H) 20 - 29 meq/L [facility] Anion Gap with K 13 6 - 20 meq/L [facility] Calcium 8.2 (L) 8.5 - 10.5 mg/dL [facility] Phosphorus 3.4 2.5 - 4.5 mg/dL [facility] Albumin 3.6 3.5 - 5.0 g/dL [facility] Corrected Calcium 8.5 8.5 - 10.5 mg/dL [facility] Age 75 Years [facility] eGFR Non- 85 >=60 [facility] Greek mL/min/1.73m2 [facility] eGFR >90 >=60 [facility] mL/min/1.73m2 CLINIC Specimen Blood - Blood specimen (specimen) Performing Organization Address [facility] Centercode Phone Number [address] [phone] CTA CHEST (09/22/2020 3:42 PM PROCESS ENGINEERING MANAGER) Specimen Narrative Performed At [facility] Patient Name: SARAI PATTON Date of : 1945 Procedure: CTA CHEST Date of Service: 09/22/2020 EXAM: CTA CHEST INDICATION:PE suspected, high prob HISTORY: 75-year-old male patient. Shortness of breath . Previous smoker. Severe COPD. On home oxygen. The patient has known srikanth g cancer. Known right lung masses. Known adenopathy in the right infra hilar region and subcarinal region. Possible pulmonary embolism COMPARISON(S): There is an earlier PET scan from 06/28/2020 TECHNIQUE: Axial ct imaging was performed through the chest following IV contrast. Sagittal and coronal reformats were performe d with MIP technique. 3D volume rendered images of the thoracic a tomás were generated. FINDINGS: The patient has known emphysematous dickerson ge in the upper lungs. There are enlarging masses in the right chest and enla rging adenopathy in the right hilar region and subcarinal region consis tent with malignancy. There is a spiculated lesion in the right upper lobe l aterally that measures about 10 mm in size. Previously, this measure d about 7 mm in size. There is a large dominant masslike opacity that is identified in the right infrahilar region. This lesion is clearly la rger than before and is much more confluent than before. It extends fro m the level of the right hilum to the posterior pleural surface. This mas s is harder to measure. I would estimate that this mass measures 5.1 x 3.7 cm in size. A previous estimated measurement is 2.4 x 3 cm. The right lower lobe lung mass is contiguous with mojgan opathy in the right hilar region. This adenopathy is also larger bhavana n before. Subcarinal lymphadenopathy on the right side is also larger than before. There are small nodes in the mediastinum anterior to t he trachea and anterior to the shellie. These nodes are unchanged and may be reactive or inflammatory. There is some minimal lymphadenopathy in the left hilar region that I think is reactive or infla mmatory. I do not see a pneumonia. I do not see C HF. There is some additional curvilinear scarring or atele ctasis at the right posterior lung base just above the right diaphra gm. There is some additional curvilinear scarring or atelectasis posteri daniel at the left lung base. As visualized, the main pulmonary is clear. The right and left pulmonary arteries are clear. Tumor surrounds the right lower lo be pulmonary artery. As visualized, I do not see definite thrombus within either the right or left lower lobe pulmonary arter y. There is no visualized thrombus within the remainder o f the visualized lobar or segmental branches to the pulmo nary arterial tree. There is no concerning lytic or blastic bone lesion. I n the abdomen, there is a cyst at the upper aspect of t he left kidney as before. 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 There are chronic-appearing compression deformities th roughout the thoracic spine with adjacent degenerativ e endplate change and spurring. IMPRESSION: There is no CT evidence for pulmonary em bolism. The patient has known underlying oxygen dependent COPD. The patient has known lung masses consistent with wendy gnancy. There is an enlarging spiculated lesion peripherally within the right upper lobe which is larger than before and which is likely malign jacque. There is a large dominant mass in the right lower lobe posteriorl y and medially. This mass is definitely larger than before. There is c ontiguous adenopathy that is identified within the right hilar r egion and right infrahilar region which is larger than before. There i s subcarinal lymphadenopathy that is larger than befo re. There is a left renal cyst. There is a rotoscoliosis deformity of the thoracic spi ne with chronic-appearing compression deformities. I do not se e a worrisome lytic or blastic bone lesion Finalized by: Ebenezer Cortez MD on 09/03 4:02 PM PROCESS ENGINEERING MANAGER Patient/Procedure Information: [facility] MRN/RAJ: [id number] Order Number: [id number] Accession Number: [id number] Ordering Provider: ELICEO STEWART Authorizing Provider: ELICEO STEWART Procedure Note Interface, Radiantres - 09/22/2020 4:04 PM PROCESS ENGINEERING MANAGER Patient Name: SARAI PATTON Date of : 1945 Procedure: CTA CHEST Date of Service: 09/22/2020 EXAM: CTA CHEST INDICATION:PE suspected, high prob HISTORY: 75-year-old male patient. Short ness of breath. Previous smoker. Severe COPD. On home oxygen. The patient has known lung cancer. Known right lung masses. Known adenopathy in the right infrahilar region and subcarinal region. Possible pulmonary embolism COMPARISON(S): There is an earlier PET scan from 06/28/2020 TECHNIQUE: Axial ct imaging was performe d through the chest following IV contrast. Sagittal and coronal reformats were performed with MIP technique. 3D volume rendered images of the thoracic aorta were generated. FINDINGS: The patient has known emphysematous dickerson ge in the upper lungs. There are enlarging masses in the right chest and enlarging adenopathy in the right hilar region and subcarinal region consistent with malignancy. There is a spiculated lesion in the righ t upper lobe laterally that measures about 10 mm in size. Previously, this measured about 7 mm in size. There is a large dominant masslike opacity that is identified in the right infrahilar region. This lesion is clearly larger than before and is much more confluent than before. It extends from the level of the right hilum to the posterior pleural surface. This mass is harder to measure. I would estimate that this mass measures 5 .1 x 3.7 cm in size. A previous estimated measurement is 2.4 x 3 cm. The right lower lobe lung mass is contig uous with adenopathy in the right hilar region. This adenopathy is also larger than before. Subcarinal lymphadenopathy on the right side is also larger than before. There are small nodes in the mediastinum anterior to the trachea and anterior to the shellie. These nodes are unchanged and may be reactive or inflammatory. There is some minimal lymphadenopathy in the left hilar region that I think is reactive or infla mmatory. I do not see a pneumonia. I do not see C HF. There is some additional curvilinear sca rring or atelectasis at the right posterior lung base just above the right diaphragm. There is some additional curvilinear scarring or atelectasis posteriorly at the left lung base. As visualized, the main pulmonary is linda ar. The right and left pulmonary arteries are clear. Tumor surrounds the right lower lobe pulmonary artery. As visualized, I do not see definite thrombus within either the right or left lower lobe pulmonary artery. There is no visualized thrombus within t he remainder of the visualized lobar or segmental branches to the pulmonary arterial tree. There is no concerning lytic or blastic bone lesion. In the abdomen, there is a cyst at the upper aspect of the left kidney as before. There is a rotoscoliosis deformity of th e mid thoracic spine curved convex right. There are chronic-appearing compression deformities throughout the thoracic spine with adjacent degenerative endplate change and spurring. IMPRESSION: There is no CT evidence for pulmonary em bolism. The patient has known underlying oxygen dependent COPD. The patient has known lung masses consis tent with malignancy. There is an enlarging spiculated lesion peripherally within the right upper lobe which is larger than before and which is likely malignancy. There is a large dominant mass in the right lower lobe po steriorly and medially. This mass is definitely larger than before. There is contiguous adenopathy that is identified within the right hilar region and right infrahilar region which is larger than before. There is subcarin al lymphadenopathy that is larger than before. There is a left renal cyst. There is a rotoscoliosis deformity of th e thoracic spine with chronic-appearing compression deformities. I do not see a worrisome lytic or blastic bone lesion Finalized by: Ebenezer Cortez MD on 09/03 4:02 PM PROCESS ENGINEERING MANAGER Patient/Procedure Information: [facility] MRN/RAJ: [id number] Order Number: [id number] Accession Number: [id number] Ordering Provider: ELICEO STEWART Authorizing Provider: ELICEO STEWART Performing Organization Address City/State/Zipcode Phone Number [id number] XRAY CHEST PORTABLE - (09/22/2020 2:55 PM PROCESS ENGINEERING MANAGER) Specimen Narrative Performed At [facility] Patient Name: SARAI PATTON Date of : 1945 Procedure: XRAY CHEST PORTABLE Date of Service: 09/22/2020 EXAM: XRAY CHEST PORTABLE INDICATION:chest pain HISTORY: Oxygen dependent COPD. Increased shortness of breath. Known lung cancer. As I understand, the patient is not under going any treatment COMPARISON(S): Earlier imaging goes back to 06/28/2020 FINDINGS: The patient has known adenopathy in the right hilar re gion and right infrahilar region and in the subcarinal region. There is a known mass that is identified at the posterior and medial aspect of the right lower lobe which is basically contiguous with the right hilar lymphadenopathy. By x-ray, there is additional density just above the r ight diaphragm though I think this density represents s carring or atelectasis. The patient has a smaller nodule that is identified pe ripherally within the right upper lobe just above the level of the keenan a. That nodule is not as well shown. This nodule is also enlarging by CT and also likely represents malignancy, however. I do not see an acute pneumonia. I do no t see CHF. IMPRESSION: Known dominant right lower lobe lung mass which is bas ically contiguous with adjacent lymphadenopathy in the right hilar and r ight infrahilar region. There is also a dominant subcari nal lymphadenopathy. There is also a smaller mass peripherall y within the right upper lobe. These areas of lung cancer are growing c ompared with 06/28/2020. I otherwise do not see an acute finding Finalized by: Ebenezer Cortez MD on 09/03 4:12 PM PROCESS ENGINEERING MANAGER Patient/Procedure Information: [facility] MRN/RAJ: [id number] Order Number: [id number] Accession Number: [id number] Ordering Provider: ELICEO STEWART Authorizing Provider: ELICEO STEWART Procedure Note Interface, Radiantres - 09/22/2020 4:15 PM PROCESS ENGINEERING MANAGER Patient Name: SARAI PATTON Date of : 1945 Procedure: XRAY CHEST PORTABLE Date of Service: 09/22/2020 EXAM: XRAY CHEST PORTABLE INDICATION:chest pain HISTORY: Oxygen dependent COPD. Increase d shortness of breath. Known lung cancer. As I understand, the patient is not undergoing any treatment COMPARISON(S): Earlier imaging goes back to 06/28/2020 FINDINGS: The patient has known adenopathy in the right hilar region and right infrahilar region and in the subcarinal region. There is a known mass that is identified at the posterior and medial aspect of the right lower lobe which is basically contiguous with the r ight hilar lymphadenopathy. By x-ray, there is additional density ju st above the right diaphragm though I think this density represents scarring or atelectasis. The patient has a smaller nodule that is identified peripherally within the right upper lobe just above the level of the shellie. That nodule is not as well shown. This nodule is also enlarging by CT and also likely represents malignancy, however. I do not see an acute pneumonia. I do no t see CHF. IMPRESSION: Known dominant right lower lobe lung mas s which is basically contiguous with adjacent lymphadenopathy in the right hilar and right infrahilar region. There is also a dominant subcarinal lymphadenopathy. There is also a smaller mass peripherall y within the right upper lobe. These areas of lung cancer are growing c ompared with 06/28/2020. I otherwise do not see an acute finding Finalized by: Ebenezer Cortez MD on 09/03 4:12 PM PROCESS ENGINEERING MANAGER Patient/Procedure Information: [facility] MRN/RAJ: [id number] Order Number: [id number] Accession Number: [id number] Ordering Provider: ELICEO STEWART Authorizing Provider: ELICEO STEWART Performing Organization Address City/State/Zipcode Phone Number [id number] BLOOD GASES VENOUS WITH LACTIC ACID (09/22/2020 2:36 PM PROCESS ENGINEERING MANAGER) pH Venous 7.33 7.30 - 7.[address] [facility] RESPIRATORY [facility] pCO2 Venous 78 (H) 35 - [address] [facility] pO2 Venous 27 (L) 35 - [address] [facility] Base Excess Venous 14 (H) -2 - 2 meq/L [facility] HCO3 Venous 41 (H) 20 - 29 [facility] mmol/L [place] [facility] O2 Saturation % 41 (L) 60 - 80 % [facility] Venous [facility] Carbon Monoxide 1.3 0.0 - 3.0 % [facility] Methemoglobin 0.6 0.0 - 3.0 % [facility] p50 30.21 (H) 25.00 - [facility] 29.00 mmHg [facility] Allens Test Allens Test is [facility] not Required [facility] Collection Site Venous [facility] O[address] [facility] Lactic Acid 0.9 0.5 - 2.2 [facility] mmol/L [facility]AT[facility]ERAPY Specimen Blood - Venous blood specimen (specimen) Performing Organization Address [facility] Phone Number [facility] - [address] [place] [phone] RESPIRATORY THERAPY PROCALCITONIN (09/22/2020 2:02 PM PROCESS ENGINEERING MANAGER) Pathologist Sig nature Procalcitonin 0.05 <0.07 ng/mL [address] Specimen Blood - Blood specimen (specimen) Narrative Performed At Suspected Lower Respiratory Tract Infect ion: [address] 0.1-0.25: Low risk for bacterial infection; Antibiotic s discouraged. > 0.25: Increased likelihood for bacterial infection; Antibiotics encouraged. Suspected Sepsis: 0.1-0.5: Low likelihood for sepsis; Anti biotics discouraged. > 0.5: Increased Likelihood for sepsis; Antibiotics encouraged. > 2.0: High risk of sepsis/septic shock; Antibiotics s trongly encouraged. Decisions on antibiotic use should not be based solely on procalcitonin levels. If antibiotics are administered, repeat procalcitonin testing should be performed every 2-3 da ys to consider early antibiotic cessation. PCT is a dynamic biomarker and most useful when trends are analyzed over time in accompaniment with other clinical data. Performing Organization Address [facility] Phone Number [address] [phone] C-REACTIVE PROTEIN QUANTITATIVE (09/22/2020 2:02 PM PROCESS ENGINEERING MANAGER) Pathologist Sig [facility] CRP 29.6 (H) 0.0 - 8.0 mg/L [address] Specimen Blood - Blood specimen (specimen) Performing Organization Address [facility] Phone Number [address] [address] LAB ONLY-COMPLETE BLOOD COUNT WITH DIFFERENTIAL (09/22/2020 2:02 PM PROCESS ENGINEERING MANAGER) Pathologist Sig nature WBC 13.5 (H) 4.0 - 11.0 K/uL [address] RBC 2.94 (L) 4.40 - 5.[address] M/uL Hemoglobin 7.5 (L) 13.5 - 17.[address] g/dL Hematocrit 25.5 (L) 40.0 - 50.0 % [address] MCV 86.7 80.0 - 98.[address] MCH 25.5 25.5 - 34.[address] MCHC 29.4 (L) 31.5 - 36.[address] g/dL RDW-CV 15.7 (H) 11.5 - 15.5 % [address] RDW-SD 49.8 35.5 - 50.[address] Platelet Count 303 140 - 400 K/uL [address] MPV 9.8 8.5 - 12.[address] Seg Neut Absolute 11.0 (H) 1.8 - 8.0 K/uL [address] Lymphocytes Absolute 0.8 0.8 - 4.1 K/uL [place] [address] [facility] Monocytes Absolute 1.3 (H) 0.0 - 1.0 K/uL [address] Eosinophils Absolute 0.3 0.0 - 0.7 K/uL [place] [address] [facility] Basophil Absolute 0.1 0.0 - 0.2 K/uL [address] Immature Granulocyte 0.07 (H) 0.00 - 0.[address] Absolute K/uL Neutrophils Abs. 11,000 /uL [address] (Segs and Bands) Neutrophils Percent 81.4 % [address] Lymphocytes Percent 5.9 % [address] Monocytes Percent 9.9 % [address] Immature Granulocyte 0.5 % [address] Percent Eosinophils Percent 1.9 % [address] Basophil Percent 0.4 % [address] Nucleated RBC 0 /[address] Specimen Blood - Blood specimen (specimen) Performing Organization Address City/[facility]/Zipcode Phone Number [address] [facility] [place] [address] TROPONIN I (09/22/2020 2:02 PM PROCESS ENGINEERING MANAGER) Pathologist Sig nature Troponin I 0.011 0.000 - 0.028 ng/mL [address] Specimen Blood - Blood specimen (specimen) Performing Organization Address City[facility] Phone Number [address] [place] [phone] COMPREHENSIVE METABOLIC PANEL (09/22/2020 2:02 PM PROCESS ENGINEERING MANAGER) Pathologist Sig nature Glucose 113 (H) 70 - 100 mg/dL [address] BUN 18 6 - 22 mg/dL [address] Creatinine 1.00 0.80 - 1.[address] mg/dL BUN/Creatinine Ratio 18.0 10.0 - 25.[address] Sodium 137 135 - 145 meq/L [address] Potassium 4.2 3.5 - 5.3 meq/L [address] Chloride 94 (L) 99 - 110 meq/L [place] [address] [facility] CO2 36 (H) 20 - 29 meq/L [address] Anion Gap with K 11 6 - 20 meq/L [address] Calcium 8.0 (L) 8.5 - 10.[address] mg/dL Protein Total 6.0 6.0 - 8.2 g/dL [address] Albumin 3.4 (L) 3.5 - 5.0 g/dL [address] Alkaline Phosphatase 68 30 - 150 U/L [address] AST - SGOT 19 0 - 35 U/L [address] ALT - SGPT 11 0 - 55 U/L [address] Bilirubin Total 0.8 0.2 - 1.2 mg/dL [address] Corrected Calcium 8.5 8.5 - 10.[address] mg/dL Age [address] eGFR Non- 73 >=[address] Greek mL/min/1.73m2 eGFR 89 >=[address] mL/min/1.73m2 Specimen Blood - Blood specimen (specimen) Performing Organization Address [facility] Phone Number [address] [place] [address], [place] [address] BRAIN NATRIURETIC PEPTIDE (09/22/2020 2:02 PM PROCESS ENGINEERING MANAGER) Pathologist Sig nature BNP 117 (H) 0 - 100 pg/mL [place] [address] [facility] Specimen Blood - Blood specimen (specimen) Performing Organization Address City/State/Zipcode Phone Number [place] [facility] [address] [facility] [place] [place] [address] EKG (09/22/2020 1:45 PM PROCESS ENGINEERING MANAGER) EKG WAVEFORM JASSON PALACIOS Atrial-paced rhythm with prolonged AV conduction Marked Baseline Artifact Adversely Affects Interpretat ion Repeat ECG Left axis deviation Intraventricular conduction delay Cannot rule out Septal infarct , age undetermined Abnormal ECG Ventricular Rate: 64 BPM Atrial Rate: 64 BPM P-R Interval: 318 ms QRS Duration: 138 ms Q-T Interval: 414 ms QTc Calculation(Bazett): 427 ms Calculated P Coleman: -50 degrees Calculated R Coleman: -71 degrees Calculated T Coleman: 37 degrees Specimen Narrative Performed At This result has an attachment that is no t available. Performing Organization Address City/State/Zipcode Phone Number JASSON PALACIOS documented in this encounter Visit Diagnoses Diagnosis Acute respiratory failure with hypoxia ( HCC) - Primary Acute respiratory failure Hypoxia Hypoxemia SOB (shortness of breath) Shortness of breath Hypotension, unspecified hypotension typ e Lab test positive for detection of COVID -19 virus Chronic a-fib (HCC) Atrial fibrillation On continuous oral anticoagulation Chronic systolic CHF (congestive heart f ailure) (HCC) Chronic systolic heart failure Chest pain, unspecified type Acute exacerbation of chronic obstructiv e pulmonary disease (COPD) (HCC) Obstructive chronic bronchitis with exac erbation Cancer of lung (HCC) Malignant neoplasm of bronchus and lung, unspecified site documented in this encounter Discharge Diagnoses Not on filedocumented in this encounter Administered Medications Medication Order MAR Action Action Date Dose Rate Site acetaminophen (TYLENOL) tablet Given 09/26/2020 9:08 AM PROCESS ENGINEERING MANAGER 650 mg 650 mg 650 mg, Oral, Every four hours prn, Starting 09/22/20 at 2133, Until Discontinued, mild pain, fever, for pain scale 3 or less or if patient prefers this medication for pain, Adult patients: Total dose of acetaminophen from all acetaminophen containing products should not exceed 4 grams (4000 mg) per day. Pediatric Patients 0 - 3 months: Maximum of 60 mg/kg/24 hours of acetaminophen. Pediatric Patients older than 3 months: Maximum of 75 mg/kg/24 hours of acetaminophen (Never exceeding 4 grams/day). , Given 09/25/2020 8:35 PM PROCESS ENGINEERING MANAGER 650 mg Given 09/25/2020 6:56 AM PROCESS ENGINEERING MANAGER 650 mg albuterol (PROVENTIL) (2.5 mg/3mL) 0.083 % inhalation soln 2.5 mg 2.5 mg, Nebulization, Every two hours prn, Starting Mo n 09/23/20 at 1005, Until Discontinued, shortness of breath, wheezing, 3 mL bisacodyl (DULCOLAX) suppository 10 mg 10 mg, Rectal, One time a day prn, Starting Sun 1 at 2133, Until Discontinued, constipation, Use SECOND for constipatio n. If patient cannot take oral medications, use first for constipation., carVEDilol (COREG) tablet 6.25 mg Given 09/25/2020 8:10 AM PROCESS ENGINEERING MANAGER 6.25 mg 6.25 mg, Oral, Two times a day with meals, First dose (after last modification) on Wed09/24/20 at 1730, Until Discontinued, Take with food. Hold for SBP<110 or HR<65, cefuroxime (CEFTIN) tablet 500 mg Given 09/26/2020 8:43 AM PROCESS ENGINEERING MANAGER 500 mg 500 mg, Oral, Two times a day, 10 doses, First dose on Wed09/22/20 at 2140, Last dose on Wed09/27/20 at 0900, Tablet should not be crushed or chewed., Given 09/25/2020 8:35 PM PROCESS ENGINEERING MANAGER 500 mg Given 09/25/2020 8:11 AM PROCESS ENGINEERING MANAGER 500 mg digoxin (LANOXIN) tablet 0.125 mg Given 09/26/2020 8:43 AM PROCESS ENGINEERING MANAGER 0.125 mg 0.125 mg, Oral, DAILY, First dose on Wed09/23/20 at 1000, Until Discontinued Given 09/25/2020 8:11 AM PROCESS ENGINEERING MANAGER 0.125 mg Given 09/24/2020 10:07 AM PROCESS ENGINEERING MANAGER 0.125 mg docusate sodium (THEREVAC-SB MINI;ENEMEE Z MINI) 283 MG enema 1 enema 1 enema, Rectal, One time a day prn, Starting Sun 09/22 at 2133, Until Discontinued, constipation, Use THIRD for constipation - if no BM 8 hours after dulcolax suppository. If patient cannot take oral medi cations, use second for constipation., formoterol (PERFOROMIST) 20 MCG/2ML Given 09/25/2020 8:14 PM CS T 20 mcg inhalation solution 20 mcg 20 mcg, Nebulization, Two times a day, First dose on Wed09/23/20 at 1200, Until Discontinued, 2 mL Given 09/25/2020 8:39 AM PROCESS ENGINEERING MANAGER 20 mcg Given 09/24/2020 8:41 PM PROCESS ENGINEERING MANAGER 20 mcg ipratropium (ATROVENT) 0.5 mg/2.5 mL Given 09/26/2020 1:[address] 0.5 mg inhalation soln 0.5 mg 0.5 mg, Nebulization, Every six hours, First dose on Wed09/23/20 at 1400, Until Discontinued, 2.5 mL Given 09/25/2020 8:14 PM PROCESS ENGINEERING MANAGER 0.5 mg Given 09/25/2020 1:30 PM PROCESS ENGINEERING MANAGER 0.5 mg lisinopril (PRINIVIL, ZESTRIL) tablet 5 mg Given 09/25/2020 8:11 AM PROCESS ENGINEERING MANAGER 5 mg 5 mg, Oral, Daily, First dose (after last modification) on Wed09/25/20 at 0900, Until Discontinued, Hold for SBP <110, melatonin tablet 3 mg Given 09/26/2020 2:12 AM PROCESS ENGINEERING MANAGER 3 mg 3 mg, Oral, Bedtime prn, Starting 09/22/20 at 2133, Until Discontinued, other (Specify), insomnia, Use FIRST for insomnia. If inadequate response in 60 minutes, may proceed to next choice option or, if no other options, contact provider., Given 09/24/2020 11:18 PM PROCESS ENGINEERING MANAGER 3 mg Given 09/23/2020 9:16 PM PROCESS ENGINEERING MANAGER 3 mg omeprazole (priLOSEC) capsule 40 mg Given 09/26/2020 5:32 AM PROCESS ENGINEERING MANAGER 40 mg 40 mg, Oral, Two times a day before meals, First dose on Wed09/23/20 at 0700, Until Discontinued, Swallow cap whole. Do not crush, chew or open., Given 09/25/2020 5:30 PM PROCESS ENGINEERING MANAGER 40 mg Given 09/25/2020 5:59 AM PROCESS ENGINEERING MANAGER 40 mg ondansetron (ZOFRAN ODT) dispersible tab let 4 mg 4 mg, Oral, Four times a day prn, Starti ng Sun 09/22/20 at 2133, Until Discontinued, nausea, vomiting, Use FIRST for nausea / vomiting. If ineffective after 30 minutes use ondansetron IV, ondansetron (ZOFRAN) injection solution 4 mg 4 mg, IV, Four times a day prn, Starting 09/22/20 at 2133, Until Discontinued, nausea, vomiting, 2 mL, Use SECOND for n ausea / vomiting. If ineffective after 30 minutes and ondansetron ODT used, call p michael for alternative. If preference is to further dilute for IV administration: First draw up patient-specific dose, then dilute to 10 mL with 0.9% sodium chloride., predniSONE tablet 40 mg 40 mg, Oral, Daily, First dose on Wed09/25/20 at 0900, Until Discontinued rosuvastatin (CRESTOR) tablet 20 mg Given 09/25/2020 8:35 PM PROCESS ENGINEERING MANAGER 20 mg 20 mg, Oral, Bedtime, First dose on 09/22/20 at 2140, Until Discontinued Given 09/24/2020 8:15 PM PROCESS ENGINEERING MANAGER 20 mg Given 09/23/2020 8:55 PM PROCESS ENGINEERING MANAGER 20 mg senna-docusate sodium (SENOKOT-S;PERICOL NASIR) tablet 2 tablet 2 tablet, Oral, Two times a day prn, Starting Sun 09/22 at 2133, Until Discontinued, constipation, Use FIRST fo r constipation unless patient cannot take oral medications., sodium chloride 0.9% flush (adult) 10 mL Given 09/26/2020 9:48 AM PROCESS ENGINEERING MANAGER 10 mL 10 mL, IV, Two times a day and prn, First dose on 09/22/20 at 2135, Until Discontinued, 10 mL, Flush IV line as scheduled and as often as necessary before and after meds., Given 09/25/2020 8:47 PM PROCESS ENGINEERING MANAGER 10 mL Given 09/25/2020 8:11 AM PROCESS ENGINEERING MANAGER 10 mL Medication Order MAR Action Action Date Dose Rate Site albuterol-ipratropium (DUO-NEB) Given 09/22/2020 2:13 PM PROCESS ENGINEERING MANAGER 3 mL 2.5-0.5 mg/3 mL inhalation solution 3 mL 3 mL, Nebulization, Now, 1 dose, 09/22/20 at 1405, 3 mL albuterol-ipratropium (DUO-NEB) 2.5-0.5 mg/3 Given 8:02 AM PROCESS ENGINEERING MANAGER 3 mL mL inhalation solution 3 mL 3 mL (1 unit-dose), Nebulization, Every four hours, First dose on Wed09/23/20 at 0005, Until Discontinued, 3 mL Given 09/23/2020 4:00 AM PROCESS ENGINEERING MANAGER 3 mL Given 09/23/2020 1:07 AM PROCESS ENGINEERING MANAGER 3 mL carVEDilol (COREG) tablet 18.75 mg Given 09/24/2020 10:07 AM PROCESS ENGINEERING MANAGER 18.75 mg 18.75 mg, Oral, Two times a day with meals, First dose on Wed09/23/20 at 1000, Until Discontinued, Take with food. Hold for SBP<110 or HR<65, Given 09/23/2020 6:05 PM PROCESS ENGINEERING MANAGER 18.75 mg Given 09/23/2020 10:04 AM PROCESS ENGINEERING MANAGER 18.75 mg dexamethasone sodium phosphate (DECADRON) (10 Given 9:47 AM PROCESS ENGINEERING MANAGER 6 mg mg/mL) injection solution 6 mg 6 mg, IV, One time, 1 dose, [facility] 09/26/20 at 1000, 0.6 mL, If preference is to further dilute for IV administration: First draw up patient-specific dose, then dilute to 10 mL with 0.9% sodium chloride., iohexol (OMNIPAQUE) 350 mg/mL solution 1 00 mL Given 09/22/2020 3:42 PM PROCESS ENGINEERING MANAGER 85 mL 100 mL, IV, Now imaging, 1 dose, Starting 09/22/20 at 1542, Until 09/22/20 at 1542, 100 mL lisinopril (PRINIVIL, ZESTRIL) tablet 10 mg Given 09/24/2020 10:07 AM PROCESS ENGINEERING MANAGER 10 mg 10 mg, Oral, Two times a day, First dose on Wed09/23/20 at 1000, Until Discontinued, Hold for SBP <110, Given 09/23/2020 10:04 AM PROCESS ENGINEERING MANAGER 10 mg methylPREDNISolone sod succ (SOLU-medrol) Given 09/22/2020 2:35 PM PROCESS ENGINEERING MANAGER 125 mg injection 125 mg 125 mg, IV, Now, 1 dose, [place] 09/22/20 at 1405, 2 mL methylPREDNISolone sod succ (SOLU-medrol) Given 09/24/2020 10:07 AM PROCESS ENGINEERING MANAGER 40 mg injection 40 mg 40 mg, IV, Every twelve hours, First dose on Wed09/23/20 at 0900, Until Discontinued, 0.64 mL Given 09/23/2020 8:55 PM PROCESS ENGINEERING MANAGER 40 mg Given 09/23/2020 10:04 AM PROCESS ENGINEERING MANAGER 40 mg sodium chloride 0.9% (bolus) IV Given 09/22/2020 2:59 PM CS T 1,000 mL 999 mL/hr solution 1,000 mL 1,000 mL, IV, at 999 mL/hr, Bolus, 1 dose, 09/22/20 at 1500, 1,000 mL sodium chloride 0.9% IV solution flush New Bag 09/25/2020 7:5 8 AM PROCESS ENGINEERING MANAGER 1,000 mL bag IV, Continuous, Starting 09/25/20 at 0735, Until Maggie 09/26/20 at 0734, 1,000 mL, IV line carrier for line flush with blood product infusion., documented in this encounter Additional Health Concerns Infection Onset Date Last Indicated Resolved Time COVID-19 09/16/2020 09/16/2020 documented as of this encounter
[2020-09-27] MEDS: Lisinopril 10 MG Tab (OWN SUPPLY) PO SCH (09:54)
[2020-09-27] MEDS: Furosemide 20 MG Tab (OWN SUPPLY) PO SCH ×2 (09:54→16:40)
[2020-09-27] MEDS: CARVEDILOL 12.5 MG PO SCH ×2 (09:55→21:17)
[2020-09-27] MEDS: Cefuroxime 250 MG Tab PO SCH (09:56)
[2020-09-27] MEDS: BUDESONIDE 0.5 MG/2 ML NEB SCH ×2 (09:58→20:09)
[2020-09-27] MEDS: Calcium Carbonate 750 MG Tab.Chew PO SCH ×2 (09:59→20:06)
[2020-09-27] MEDS: Magnesium Hydroxide 400 MG/5 ML Susp 30 ML Cup PO SCH (10:11)
[2020-09-27] MEDS: Albuterol/Ipratropium 3.0-0.5 MG/3 ML Neb Soln NEB PRN (14:00)
--- NOTE | 2020-09-27 14:08 | PCM.SN.2 ---
- Free Text/Narrative Note: Patient refusing prednisone even lower doses. Also refused in [place] and it is documented so he can't believe they sent him home with it they told him they wouldn't. He told me yesterday it made him weak today he told the nurse he had breathing problems like he is allergic and he saw things like hallucinations on it. Prednisone stopped per patient request.
[2020-09-27] MEDS: Acetaminophen/Diphenhydramine 500-25 MG Tab PO SCH (20:06)
[2020-09-27] MEDS: Albuterol/Ipratropium 3.0-0.5 MG/3 ML Neb Soln NEB SCH (20:08)
[2020-09-27] MEDS: Acetaminophen 500 MG Tab PO PRN (23:32)
[2020-09-28] MEDS: BUDESONIDE 0.5 MG/2 ML NEB SCH ×3 (06:14→20:09)
[2020-09-28] MEDS: OMEPRAZOLE 40 MG PO SCH ×2 (06:14→17:12)
[2020-09-28] MEDS: FORMOTEROL 20 MCG/2 ML SCH ×2 (06:15→20:10)
[2020-09-28] MEDS: Furosemide 20 MG Tab (OWN SUPPLY) PO SCH ×2 (09:59→17:12)
[2020-09-28] MEDS: CARVEDILOL 12.5 MG PO SCH ×2 (10:00→17:25)
[2020-09-28] MEDS: Lisinopril 10 MG Tab (OWN SUPPLY) PO SCH (10:01)
[2020-09-28] MEDS: Calcium Carbonate 750 MG Tab.Chew PO SCH ×2 (10:03→22:02)
[2020-09-28] MEDS: Acetaminophen/Diphenhydramine 500-25 MG Tab PO SCH (20:07)
[2020-09-28] MEDS: Albuterol/Ipratropium 3.0-0.5 MG/3 ML Neb Soln NEB SCH (20:08)
[2020-09-28] MEDS: COUGH PO PRN (20:10)
[2020-09-28] MEDS: [UNRECOGNIZED DRUG - OTHER] PO PRN (20:10)
[2020-09-29] MEDS: OMEPRAZOLE 40 MG PO SCH ×2 (06:20→16:32)
[2020-09-29] MEDS: FORMOTEROL 20 MCG/2 ML SCH ×2 (06:21→20:44)
[2020-09-29] MEDS: Furosemide 20 MG Tab (OWN SUPPLY) PO SCH ×2 (09:53→16:32)
[2020-09-29] MEDS: Lisinopril 10 MG Tab (OWN SUPPLY) PO SCH (09:57)
[2020-09-29] MEDS: CARVEDILOL 12.5 MG PO SCH ×2 (09:57→19:57)
[2020-09-29] MEDS: Calcium Carbonate 750 MG Tab.Chew PO SCH ×2 (09:59→20:40)
[2020-09-29] MEDS: BUDESONIDE 0.5 MG/2 ML NEB SCH ×2 (10:02→20:45)
[2020-09-29] MEDS: Magnesium Hydroxide 400 MG/5 ML Susp 30 ML Cup PO SCH ×2 (10:05→10:06)
[2020-09-29] MEDS: Acetaminophen 500 MG Tab PO PRN (14:52)
[2020-09-29] MEDS: Albuterol/Ipratropium 3.0-0.5 MG/3 ML Neb Soln NEB PRN (16:31)
[2020-09-29] MEDS: COUGH PO PRN (20:38)
[2020-09-29] MEDS: [UNRECOGNIZED DRUG - OTHER] PO PRN (20:38)
[2020-09-29] MEDS: Acetaminophen/Diphenhydramine 500-25 MG Tab PO SCH (20:38)
[2020-09-29] MEDS: Albuterol/Ipratropium 3.0-0.5 MG/3 ML Neb Soln NEB SCH (20:41)
[2020-09-30] MEDS: FORMOTEROL 20 MCG/2 ML SCH ×2 (07:14→19:44)
[2020-09-30] MEDS: OMEPRAZOLE 40 MG PO SCH ×2 (07:15→16:51)
[2020-09-30] MEDS: Acetaminophen 500 MG Tab PO PRN (08:44)
[2020-09-30] MEDS: Furosemide 20 MG Tab (OWN SUPPLY) PO SCH ×2 (08:48→16:52)
[2020-09-30] MEDS: BUDESONIDE 0.5 MG/2 ML NEB SCH ×2 (08:49→19:44)
[2020-09-30] MEDS: Calcium Carbonate 750 MG Tab.Chew PO SCH ×2 (08:49→19:52)
[2020-09-30] MEDS: CARVEDILOL 12.5 MG PO SCH ×2 (08:53→17:44)
[2020-09-30] MEDS: Lisinopril 10 MG Tab (OWN SUPPLY) PO SCH (08:53)
[2020-09-30] MEDS: Albuterol/Ipratropium 3.0-0.5 MG/3 ML Neb Soln NEB PRN (16:51)
[2020-09-30] MEDS: Acetaminophen/Diphenhydramine 500-25 MG Tab PO SCH (19:43)
[2020-09-30] MEDS: COUGH PO PRN (19:45)
[2020-09-30] MEDS: [UNRECOGNIZED DRUG - OTHER] PO PRN (19:45)
[2020-09-30] MEDS: Albuterol/Ipratropium 3.0-0.5 MG/3 ML Neb Soln NEB SCH ×2 (19:52→22:35)
[2020-10-01] MEDS: FORMOTEROL 20 MCG/2 ML SCH ×2 (06:19→20:12)
[2020-10-01] MEDS: OMEPRAZOLE 40 MG PO SCH ×2 (06:19→20:06)
[2020-10-01] MEDS: Calcium Carbonate 750 MG Tab.Chew PO SCH ×2 (09:12→20:18)
[2020-10-01] MEDS: CARVEDILOL 12.5 MG PO SCH ×2 (09:13→20:06)
[2020-10-01] MEDS: Lisinopril 10 MG Tab (OWN SUPPLY) PO SCH (09:13)
[2020-10-01] MEDS: Furosemide 20 MG Tab (OWN SUPPLY) PO SCH ×2 (09:14→16:18)
[2020-10-01] MEDS: Magnesium Hydroxide 400 MG/5 ML Susp 30 ML Cup PO SCH (09:15)
[2020-10-01] MEDS: BUDESONIDE 0.5 MG/2 ML NEB SCH ×2 (09:16→20:16)
[2020-10-01] MEDS: Acetaminophen 500 MG Tab PO PRN (12:51)
[2020-10-01] MEDS: Albuterol/Ipratropium 3.0-0.5 MG/3 ML Neb Soln NEB PRN (13:03)
[2020-10-01] MEDS: Albuterol HFA 18 Gm Inhaler INH PRN ×2 (17:28→20:09)
[2020-10-01] MEDS: COUGH PO PRN (20:08)
[2020-10-01] MEDS: Albuterol/Ipratropium 3.0-0.5 MG/3 ML Neb Soln NEB SCH (20:08)
[2020-10-01] MEDS: [UNRECOGNIZED DRUG - OTHER] PO PRN (20:08)
[2020-10-01] MEDS: Acetaminophen/Diphenhydramine 500-25 MG Tab PO SCH (20:17)
[2020-10-02] MEDS: Acetaminophen 500 MG Tab PO PRN (05:13)
[2020-10-02] MEDS: Calcium Carbonate 750 MG Tab.Chew PO SCH ×2 (08:47→20:27)
[2020-10-02] MEDS: BUDESONIDE 0.5 MG/2 ML NEB SCH ×2 (08:48→20:26)
[2020-10-02] MEDS: Furosemide 20 MG Tab (OWN SUPPLY) PO SCH ×2 (08:50→17:05)
[2020-10-02] MEDS: OMEPRAZOLE 40 MG PO SCH ×2 (08:50→17:05)
[2020-10-02] MEDS: CARVEDILOL 12.5 MG PO SCH ×2 (08:51→18:04)
[2020-10-02] MEDS: Lisinopril 10 MG Tab (OWN SUPPLY) PO SCH (08:51)
[2020-10-02] MEDS: FORMOTEROL 20 MCG/2 ML SCH ×2 (09:10→20:25)
[2020-10-02] MEDS: Albuterol/Ipratropium 3.0-0.5 MG/3 ML Neb Soln NEB SCH (20:24)
[2020-10-02] MEDS: Acetaminophen/Diphenhydramine 500-25 MG Tab PO SCH (20:30)
[2020-10-02] MEDS: [UNRECOGNIZED DRUG - OTHER] PO PRN (20:55)
[2020-10-02] MEDS: COUGH PO PRN (20:55)
[2020-10-03] MEDS: FORMOTEROL 20 MCG/2 ML SCH ×2 (06:16→20:25)
[2020-10-03] MEDS: OMEPRAZOLE 40 MG PO SCH ×3 (06:20→18:14)
[2020-10-03] MEDS: Furosemide 20 MG Tab (OWN SUPPLY) PO SCH ×2 (08:49→17:01)
[2020-10-03] MEDS: Lisinopril 10 MG Tab (OWN SUPPLY) PO SCH (08:49)
[2020-10-03] MEDS: CARVEDILOL 12.5 MG PO SCH ×2 (08:50→17:00)
[2020-10-03] MEDS: Magnesium Hydroxide 400 MG/5 ML Susp 30 ML Cup PO SCH (08:51)
[2020-10-03] MEDS: Calcium Carbonate 750 MG Tab.Chew PO SCH ×2 (08:51→20:24)
[2020-10-03] MEDS: BUDESONIDE 0.5 MG/2 ML NEB SCH ×2 (08:51→20:25)
[2020-10-03] MEDS: Acetaminophen 500 MG Tab PO PRN (18:12)
[2020-10-03] MEDS: Acetaminophen/Diphenhydramine 500-25 MG Tab PO SCH (20:23)
[2020-10-03] MEDS: Albuterol/Ipratropium 3.0-0.5 MG/3 ML Neb Soln NEB SCH (20:27)
[2020-10-04] MEDS: OMEPRAZOLE 40 MG PO SCH ×2 (06:53→16:51)
[2020-10-04] MEDS: FORMOTEROL 20 MCG/2 ML SCH ×2 (06:54→20:32)
[2020-10-04] MEDS: Calcium Carbonate 750 MG Tab.Chew PO SCH ×2 (08:33→20:32)
[2020-10-04] MEDS: Lisinopril 10 MG Tab (OWN SUPPLY) PO SCH (08:37)
[2020-10-04] MEDS: CARVEDILOL 12.5 MG PO SCH ×2 (08:38→18:26)
[2020-10-04] MEDS: Furosemide 20 MG Tab (OWN SUPPLY) PO SCH ×2 (08:39→16:52)
[2020-10-04] MEDS: BUDESONIDE 0.5 MG/2 ML NEB SCH ×2 (08:39→20:32)
--- NOTE | 2020-10-04 17:57 | PN ---
Progress Note for SARAI CHAN Date: 10/04/2020 Room #: VM.222 CHIEF COMPLAINT: Weakness. HISTORY OF PRESENT ILLNESS: This is a 75-year-old man recovering after GI bleeding, COVID, and COPD exacerbation. He has not had any further blood in his stools, but he has been taken off Coumadin. He is actually feeling quite good. Yesterday, he tried to turn his oxygen down to 3 L though and he was not ready for that. He is using nebulizers and we do need to order some for him from [facility]. I have discussed that with pharmacy. He is not having any chest pain. His breathing and cough are the same. Blood pressures have been more borderline this morning around 100 systolic, but he is not lightheaded or dizzy. He is wondering about getting repeat blood work. However, we talked about how since he was feeling well, it was not necessary. He is in agreement to try PTE, we talked about that when he came in. Just going to the bathroom, takes a lot out of him, but more so due to breathing. The patient does have underlying lung cancer, but his condition is quite stable currently. He is here more for comfort and skilled cares. OBJECTIVE: Vital Signs: This morning, pulse 71, blood pressure 104/55, O2 not recorded, but he is using 4 L, yesterday he was 97 on 4 L. General: He is in no acute distress. Heart: Irregularly irregular. Lungs: His lung sounds are decreased throughout, but no wheezing appreciated today. There are some scattered rhonchi. Extremities: Warm and dry, just trace edema in his ankles. He is doing a lot of sitting. He refuses HOLLIS stockings. ASSESSMENT: 1. Severe chronic obstructive pulmonary disease. We will continue nebulizers and get them ordered. He refused prednisone. 2. Coronavirus disease 2019 infection, recovered. 3. Hypocalcemia. He is on Tums twice daily. We could consider some repeat lab work, but we will hold off for now. 4. Dyauq-ld-hslksph anemia, seems to be clinically stable. No repeat lab work planned for now. 5. Lung cancer, not pursuing further treatments. He will remain on swing bed for comfort measures. 6. Atrial fibrillation. He is rate controlled. He will continue his home medications. 7. Coronary artery disease with ischemic cardiomyopathy. 8. Chronic systolic heart failure with EF 40%. We will allow lower blood pressures, but today since no increased edema, we will hold the Lasix, but continue Coreg and lisinopril. 9. History of transient ischemic attacks. He is off anticoagulation due to gastrointestinal bleeding. 10.Weakness and deconditioning. We will get a PT eval next week as discussed with the patient. PLAN: The patient will continue on swing bed cares for ADLs for mobility, toileting, bathing, and meals. He clinically is stable, but I did report to him his condition could change quickly and comfort is his goal. At this point, he is not able to return home without significant family support. We will get a PT eval and see if he stabilizes and to see if other living choices become an option for him because he is uncertain how long he is able to stay here. I told him best to just take it day-by-day and I expect him to fully be here at least 30 days unless his condition worsens. MKA: 10/04/2020 17:34:19 MODL: 10/04/2020 17:53:06 /[id number]
[2020-10-04] MEDS: Acetaminophen/Diphenhydramine 500-25 MG Tab PO SCH (20:31)
[2020-10-04] MEDS: Albuterol/Ipratropium 3.0-0.5 MG/3 ML Neb Soln NEB SCH (20:31)
[2020-10-05] MEDS: FORMOTEROL 20 MCG/2 ML SCH ×2 (06:41→19:51)
[2020-10-05] MEDS: OMEPRAZOLE 40 MG PO SCH ×2 (06:43→16:56)
[2020-10-05] MEDS: CARVEDILOL 12.5 MG PO SCH ×2 (09:03→19:09)
[2020-10-05] MEDS: Lisinopril 10 MG Tab (OWN SUPPLY) PO SCH (09:03)
[2020-10-05] MEDS: Calcium Carbonate 750 MG Tab.Chew PO SCH ×2 (09:05→19:51)
[2020-10-05] MEDS: BUDESONIDE 0.5 MG/2 ML NEB SCH ×2 (09:05→19:51)
[2020-10-05] MEDS: Magnesium Hydroxide 400 MG/5 ML Susp 30 ML Cup PO SCH (09:06)
[2020-10-05] MEDS: Furosemide 20 MG Tab (OWN SUPPLY) PO SCH ×2 (09:06→16:57)
[2020-10-05] MEDS: Acetaminophen/Diphenhydramine 500-25 MG Tab PO SCH (19:51)
[2020-10-05] MEDS: Albuterol/Ipratropium 3.0-0.5 MG/3 ML Neb Soln NEB SCH (19:51)
[2020-10-05] MEDS: Acetaminophen 500 MG Tab PO PRN (22:44)
[2020-10-06] MEDS: FORMOTEROL 20 MCG/2 ML SCH ×2 (06:44→20:06)
[2020-10-06] MEDS: OMEPRAZOLE 40 MG PO SCH ×2 (06:44→16:58)
[2020-10-06] MEDS: Calcium Carbonate 750 MG Tab.Chew PO SCH ×2 (08:22→20:07)
[2020-10-06] MEDS: Lisinopril 10 MG Tab (OWN SUPPLY) PO SCH (08:23)
[2020-10-06] MEDS: Furosemide 20 MG Tab (OWN SUPPLY) PO SCH ×2 (08:23→17:00)
[2020-10-06] MEDS: CARVEDILOL 12.5 MG PO SCH ×2 (08:23→17:06)
[2020-10-06] MEDS: Acetaminophen 500 MG Tab PO PRN ×2 (08:24→20:12)
[2020-10-06] MEDS: BUDESONIDE 0.5 MG/2 ML NEB SCH ×2 (08:24→20:06)
[2020-10-06] MEDS: Acetaminophen/Diphenhydramine 500-25 MG Tab PO SCH (20:06)
[2020-10-06] MEDS: Albuterol/Ipratropium 3.0-0.5 MG/3 ML Neb Soln NEB SCH (20:06)
[2020-10-07] MEDS: BUDESONIDE 0.5 MG/2 ML NEB SCH ×2 (07:24→20:45)
[2020-10-07] MEDS: FORMOTEROL 20 MCG/2 ML SCH ×2 (07:24→20:45)
[2020-10-07] MEDS: OMEPRAZOLE 40 MG PO SCH ×2 (07:37→17:30)
[2020-10-07] MEDS: Calcium Carbonate 750 MG Tab.Chew PO SCH (07:48)
[2020-10-07] MEDS: Lisinopril 10 MG Tab (OWN SUPPLY) PO SCH (07:50)
[2020-10-07] MEDS: Magnesium Hydroxide 400 MG/5 ML Susp 30 ML Cup PO SCH (07:50)
[2020-10-07] MEDS ORDERED: predniSONE 5 MG Tab PO SCH (08:00)
[2020-10-07] MEDS: CARVEDILOL 12.5 MG PO SCH ×2 (11:46→17:32)
[2020-10-07] MEDS: Furosemide 20 MG Tab (OWN SUPPLY) PO SCH ×2 (11:46→17:33)
[2020-10-07] MEDS: Acetaminophen 500 MG Tab PO PRN (15:20)
[2020-10-07] MEDS: Albuterol/Ipratropium 3.0-0.5 MG/3 ML Neb Soln NEB PRN (15:20)
[2020-10-07] MEDS: Albuterol/Ipratropium 3.0-0.5 MG/3 ML Neb Soln NEB SCH (20:45)
[2020-10-07] MEDS: Acetaminophen/Diphenhydramine 500-25 MG Tab PO SCH (20:46)
[2020-10-08] MEDS: FORMOTEROL 20 MCG/2 ML SCH ×2 (09:27→20:49)
[2020-10-08] MEDS: OMEPRAZOLE 40 MG PO SCH ×2 (09:28→17:50)
[2020-10-08] MEDS: CARVEDILOL 12.5 MG PO SCH ×2 (09:30→17:47)
[2020-10-08] MEDS: Furosemide 20 MG Tab (OWN SUPPLY) PO SCH ×2 (09:30→17:47)
[2020-10-08] MEDS: Calcium Carbonate 750 MG Tab.Chew PO SCH (09:31)
[2020-10-08] MEDS: Lisinopril 10 MG Tab (OWN SUPPLY) PO SCH (09:31)
[2020-10-08] MEDS: BUDESONIDE 0.5 MG/2 ML NEB SCH ×2 (09:32→20:50)
[2020-10-08] MEDS: Albuterol/Ipratropium 3.0-0.5 MG/3 ML Neb Soln NEB PRN (20:48)
[2020-10-08] MEDS: Acetaminophen/Diphenhydramine 500-25 MG Tab PO SCH (20:49)
[2020-10-08] MEDS: Albuterol/Ipratropium 3.0-0.5 MG/3 ML Neb Soln NEB SCH (20:50)
[2020-10-09] MEDS: FORMOTEROL 20 MCG/2 ML SCH ×2 (06:21→19:28)
[2020-10-09] MEDS: OMEPRAZOLE 40 MG PO SCH ×2 (06:21→16:32)
[2020-10-09] MEDS: Lisinopril 10 MG Tab (OWN SUPPLY) PO SCH (09:48)
[2020-10-09] MEDS: CARVEDILOL 12.5 MG PO SCH ×2 (09:49→16:31)
[2020-10-09] MEDS: Furosemide 20 MG Tab (OWN SUPPLY) PO SCH ×2 (09:49→16:31)
[2020-10-09] MEDS: Magnesium Hydroxide 400 MG/5 ML Susp 30 ML Cup PO SCH (09:49)
[2020-10-09] MEDS: Calcium Carbonate 750 MG Tab.Chew PO SCH (09:50)
[2020-10-09] MEDS: BUDESONIDE 0.5 MG/2 ML NEB SCH ×2 (09:51→19:29)
[2020-10-09] MEDS: Albuterol/Ipratropium 3.0-0.5 MG/3 ML Neb Soln NEB PRN (19:29)
[2020-10-09] MEDS: Albuterol/Ipratropium 3.0-0.5 MG/3 ML Neb Soln NEB SCH (19:30)
[2020-10-09] MEDS: Acetaminophen 500 MG Tab PO PRN (19:34)
[2020-10-09] MEDS: Acetaminophen/Diphenhydramine 500-25 MG Tab PO SCH (19:36)
[2020-10-09] MEDS: Acetaminophen/Diphenhydramine 500-25 MG Tab PO PRN (23:46)
[2020-10-10] MEDS: FORMOTEROL 20 MCG/2 ML SCH ×3 (06:29→20:26)
[2020-10-10] MEDS: OMEPRAZOLE 40 MG PO SCH ×2 (06:29→18:52)
[2020-10-10 07:41] LABS: CHLORIDE,CL 101 mmol/L (98-107); SODIUM,NA 140 mmol/L (136-145)
[2020-10-10 07:48] LABS: ANION GAP 5.5 mmol/L (5-15)
[2020-10-10] MEDS: Lisinopril 10 MG Tab (OWN SUPPLY) PO SCH (10:07)
[2020-10-10] MEDS: Furosemide 20 MG Tab (OWN SUPPLY) PO SCH ×2 (10:08→18:53)
[2020-10-10] MEDS: CARVEDILOL 12.5 MG PO SCH ×2 (10:08→18:53)
[2020-10-10] MEDS: Calcium Carbonate 750 MG Tab.Chew PO SCH (10:11)
[2020-10-10] MEDS: BUDESONIDE 0.5 MG/2 ML NEB SCH ×2 (10:11→20:26)
[2020-10-10] MEDS: Acetaminophen/Diphenhydramine 500-25 MG Tab PO SCH (20:25)
[2020-10-10] MEDS: Albuterol/Ipratropium 3.0-0.5 MG/3 ML Neb Soln NEB SCH (20:27)
[2020-10-10] MEDS: Acetaminophen 500 MG Tab PO PRN (20:32)
[2020-10-11] MEDS: Albuterol/Ipratropium 3.0-0.5 MG/3 ML Neb Soln NEB PRN ×3 (04:20→19:53)
[2020-10-11] MEDS: OMEPRAZOLE 40 MG PO SCH ×2 (06:21→17:50)
[2020-10-11] MEDS: FORMOTEROL 20 MCG/2 ML SCH ×2 (07:00→19:52)
[2020-10-11] MEDS: BUDESONIDE 0.5 MG/2 ML NEB SCH ×2 (07:01→19:52)
[2020-10-11] MEDS: CARVEDILOL 12.5 MG PO SCH ×2 (08:39→17:49)
[2020-10-11] MEDS: Furosemide 20 MG Tab (OWN SUPPLY) PO SCH (08:39)
[2020-10-11] MEDS: Calcium Carbonate 750 MG Tab.Chew PO SCH (08:39)
[2020-10-11] MEDS: Magnesium Hydroxide 400 MG/5 ML Susp 30 ML Cup PO SCH (08:40)
[2020-10-11] MEDS: Lisinopril 10 MG Tab (OWN SUPPLY) PO SCH (08:40)
[2020-10-11] MEDS: Calcium Carbonate 750 MG Tab.Chew PO PRN (13:53)
--- NOTE | 2020-10-11 13:55 | PN ---
Progress Note for SARAI CHAN Date: 10/11/2020 Room #: VM.222 SUBJECTIVE: This is a 75-year-old recovering on swing bed after a COPD exacerbation and a COVID-19 infection as well as GI bleeding; however, he has had no further bleeding since being off his anticoagulation. The patient continues to be short of breath. He has continued to require 4 L of oxygen. He is having more leg swelling. He is not interested in wearing any support stockings. He is not bothered by pain. His coughing is not any worse. He has had no fever, no chills. OBJECTIVE: Vital Signs: His pulse is 67, blood pressure 104/62, O2 of 97% on 2 L. General: He is in no acute distress. Heart: Regularly irregular. Lungs: Sounds are decreased with rhonchi in both bases. No wheezes. Abdomen: Nondistended. Extremities: Warm and dry. 2+ edema at the ankles. Mental Status: He is alert. He is orientated x3. He is in good spirits. LABORATORY DATA: Lab work done yesterday showed hemoglobin at 8.5, which is stable for him; white count 8.5; platelets 311. Sodium 140, potassium 4.5, chloride 101, bicarb 38, BUN 12, creatinine 0.9, glucose 79, and calcium 8.3. ASSESSMENT AND PLAN: 1. Severe chronic obstructive pulmonary disease. He is on nebulizers. He has refused prednisone. 2. COVID-19 infection, resolved and recovered. 3. Hypocalcemia, improving. His albumin is likely low. I will decrease his Tums to p.r.n. 4. Acute on chronic anemia. His hemoglobins are stable. 5. Lung cancer. He is not pursuing further treatments. He is on palliative cares. 6. Edema with chronic systolic heart failure, EF of 40%. I will increase his Lasix to 40 in the morning and continue 20 in the afternoon. 7. Atrial fibrillation, rate controlled. He is not on anticoagulation due to gastrointestinal bleeding. 8. Coronary artery disease with ischemic cardiomyopathy. 9. History of transient ischemic attacks. 10.Weakness and deconditioning. One-time PT consult was ordered per patient request. He was able to ambulate about 15 to 30 feet. He will be on a restorative program while he is at [facility]. MKA: 10/11/2020 13:32:01 MODL: 10/11/2020 13:48:58 /[id number]
[2020-10-11] MEDS: Furosemide 20 MG Tab*PT OWN MED PO SCH (17:49)
[2020-10-11] MEDS: Acetaminophen 500 MG Tab PO PRN (19:53)
[2020-10-11] MEDS: Albuterol/Ipratropium 3.0-0.5 MG/3 ML Neb Soln NEB SCH (20:05)
[2020-10-11] MEDS: Acetaminophen/Diphenhydramine 500-25 MG Tab PO SCH (20:08)
[2020-10-12] MEDS: Acetaminophen 500 MG Tab PO PRN (05:24)
[2020-10-12] MEDS: OMEPRAZOLE 40 MG PO SCH ×2 (06:38→17:28)
[2020-10-12] MEDS: FORMOTEROL 20 MCG/2 ML SCH ×2 (07:17→20:28)
[2020-10-12] MEDS: BUDESONIDE 0.5 MG/2 ML NEB SCH ×2 (07:18→20:27)
[2020-10-12] MEDS: CARVEDILOL 12.5 MG PO SCH ×2 (08:41→17:26)
[2020-10-12] MEDS: Lisinopril 10 MG Tab (OWN SUPPLY) PO SCH (08:42)
[2020-10-12] MEDS: Furosemide 20 MG Tab PO SCH (08:42)
[2020-10-12] MEDS: COUGH PO PRN (14:02)
[2020-10-12] MEDS: [UNRECOGNIZED DRUG - OTHER] PO PRN (14:02)
[2020-10-12] MEDS: Albuterol/Ipratropium 3.0-0.5 MG/3 ML Neb Soln NEB PRN (14:05)
[2020-10-12] MEDS: Furosemide 20 MG Tab (OWN SUPPLY) PO SCH (17:27)
[2020-10-12] MEDS: Furosemide 20 MG Tab*PT OWN MED PO SCH (17:28)
[2020-10-12] MEDS: Acetaminophen/Diphenhydramine 500-25 MG Tab PO SCH (20:26)
[2020-10-12] MEDS: Albuterol/Ipratropium 3.0-0.5 MG/3 ML Neb Soln NEB SCH (20:28)
[2020-10-13] MEDS: OMEPRAZOLE 40 MG PO SCH ×2 (06:35→17:55)
[2020-10-13] MEDS: FORMOTEROL 20 MCG/2 ML SCH ×2 (07:07→20:10)
[2020-10-13] MEDS: BUDESONIDE 0.5 MG/2 ML NEB SCH ×2 (07:07→20:10)
[2020-10-13] MEDS: Lisinopril 10 MG Tab (OWN SUPPLY) PO SCH (08:35)
[2020-10-13] MEDS: CARVEDILOL 12.5 MG PO SCH ×2 (08:37→17:55)
[2020-10-13] MEDS: Calcium Carbonate 750 MG Tab.Chew PO PRN (08:38)
[2020-10-13] MEDS: Furosemide 20 MG Tab PO SCH (08:38)
[2020-10-13] MEDS: Magnesium Hydroxide 400 MG/5 ML Susp 30 ML Cup PO SCH (09:12)
[2020-10-13] MEDS: Albuterol/Ipratropium 3.0-0.5 MG/3 ML Neb Soln NEB PRN (13:50)
[2020-10-13] MEDS: Furosemide 20 MG Tab*PT OWN MED PO SCH (17:56)
[2020-10-13] MEDS: Albuterol/Ipratropium 3.0-0.5 MG/3 ML Neb Soln NEB SCH (20:09)
[2020-10-13] MEDS: Acetaminophen/Diphenhydramine 500-25 MG Tab PO SCH (20:11)
[2020-10-14] MEDS: Albuterol/Ipratropium 3.0-0.5 MG/3 ML Neb Soln NEB PRN ×2 (03:20→17:19)
[2020-10-14] MEDS: OMEPRAZOLE 40 MG PO SCH ×2 (06:20→18:08)
[2020-10-14] MEDS: FORMOTEROL 20 MCG/2 ML SCH ×2 (06:20→20:28)
[2020-10-14] MEDS: Lisinopril 10 MG Tab (OWN SUPPLY) PO SCH (08:18)
[2020-10-14] MEDS: CARVEDILOL 12.5 MG PO SCH ×2 (08:20→18:08)
[2020-10-14] MEDS: Furosemide 20 MG Tab PO SCH (08:21)
[2020-10-14] MEDS: BUDESONIDE 0.5 MG/2 ML NEB SCH ×2 (08:23→20:27)
[2020-10-14] MEDS: COUGH PO PRN (08:24)
[2020-10-14] MEDS: [UNRECOGNIZED DRUG - OTHER] PO PRN (08:24)
[2020-10-14] MEDS: Furosemide 20 MG Tab*PT OWN MED PO SCH (18:07)
[2020-10-14] MEDS: Acetaminophen/Diphenhydramine 500-25 MG Tab PO SCH (20:26)
[2020-10-14] MEDS: Albuterol/Ipratropium 3.0-0.5 MG/3 ML Neb Soln NEB SCH (20:27)
[2020-10-15] MEDS: OMEPRAZOLE 40 MG PO SCH ×2 (06:14→18:14)
[2020-10-15] MEDS: FORMOTEROL 20 MCG/2 ML SCH ×2 (07:02→20:20)
[2020-10-15] MEDS: BUDESONIDE 0.5 MG/2 ML NEB SCH ×2 (07:03→20:20)
[2020-10-15] MEDS: CARVEDILOL 12.5 MG PO SCH ×3 (08:48→18:16)
[2020-10-15] MEDS: Lisinopril 10 MG Tab (OWN SUPPLY) PO SCH (08:49)
[2020-10-15] MEDS: Furosemide 20 MG Tab PO SCH (08:49)
[2020-10-15] MEDS: Magnesium Hydroxide 400 MG/5 ML Susp 30 ML Cup PO SCH ×2 (08:50→18:16)
[2020-10-15] MEDS ORDERED: Aspirin 81 MG Tab.EC PO PRN (16:01)
[2020-10-15] MEDS ORDERED: Aspirin 81 MG Tab.Chew PO ONE (16:09)
--- NOTE | 2020-10-15 16:13 | PCM.SN.2 ---
- Free Text/Narrative Note: Patient is requesting to be on his aggrenox and MVT. He is on comfort cares so these would not be necessary. However, he wants to be taking them and appears, in fact, to have been taking these on his own. Orders signed.
[2020-10-15] MEDS: Furosemide 20 MG Tab*PT OWN MED PO SCH (18:14)
[2020-10-15] MEDS: Aspirin 81 MG Tab.EC**OWN MED PO SCH (18:17)
[2020-10-15] MEDS: Acetaminophen 500 MG Tab PO PRN (20:19)
[2020-10-15] MEDS: Albuterol/Ipratropium 3.0-0.5 MG/3 ML Neb Soln NEB SCH (20:27)
[2020-10-15] MEDS: Acetaminophen/Diphenhydramine 500-25 MG Tab PO SCH (21:42)
[2020-10-16] MEDS: OMEPRAZOLE 40 MG PO SCH ×2 (06:54→17:09)
[2020-10-16] MEDS: FORMOTEROL 20 MCG/2 ML SCH ×2 (07:10→19:45)
[2020-10-16] MEDS: BUDESONIDE 0.5 MG/2 ML NEB SCH ×2 (07:10→19:45)
[2020-10-16] MEDS ORDERED: Aspirin/Dipyridamole 200-25 MG Cap.ER PO SCH (08:00)
[2020-10-16] MEDS: Lisinopril 10 MG Tab (OWN SUPPLY) PO SCH (08:56)
[2020-10-16] MEDS: CARVEDILOL 12.5 MG PO SCH ×2 (08:56→17:08)
[2020-10-16] MEDS: Aspirin 81 MG Tab.EC**OWN MED PO SCH (08:57)
[2020-10-16] MEDS: Furosemide 20 MG Tab PO SCH (08:57)
[2020-10-16] MEDS: MULTIVITAMIN PO SCH (09:00)
[2020-10-16] MEDS: [UNRECOGNIZED DRUG - OTHER] PO PRN (09:01)
[2020-10-16] MEDS: Furosemide 20 MG Tab*PT OWN MED PO SCH (17:09)
[2020-10-16] MEDS: Acetaminophen 500 MG Tab PO PRN (17:11)
[2020-10-16] MEDS: Albuterol/Ipratropium 3.0-0.5 MG/3 ML Neb Soln NEB SCH (19:45)
[2020-10-16] MEDS: Acetaminophen/Diphenhydramine 500-25 MG Tab PO SCH (19:46)
[2020-10-17] MEDS: Acetaminophen 500 MG Tab PO PRN (01:22)
[2020-10-17] MEDS: OMEPRAZOLE 40 MG PO SCH ×2 (06:13→18:58)
[2020-10-17] MEDS: FORMOTEROL 20 MCG/2 ML SCH ×2 (07:06→19:47)
[2020-10-17] MEDS: BUDESONIDE 0.5 MG/2 ML NEB SCH ×2 (07:06→19:47)
[2020-10-17] MEDS: Lisinopril 10 MG Tab (OWN SUPPLY) PO SCH (09:27)
[2020-10-17] MEDS: CARVEDILOL 12.5 MG PO SCH ×2 (09:28→18:58)
[2020-10-17] MEDS: Furosemide 20 MG Tab PO SCH (09:30)
[2020-10-17] MEDS: Aspirin 81 MG Tab.EC**OWN MED PO SCH (09:30)
[2020-10-17] MEDS: MULTIVITAMIN PO SCH (09:31)
[2020-10-17] MEDS: [UNRECOGNIZED DRUG - OTHER] PO PRN ×2 (09:32→18:59)
[2020-10-17] MEDS: Magnesium Hydroxide 400 MG/5 ML Susp 30 ML Cup PO SCH (09:34)
[2020-10-17] MEDS: diphenhydrAMINE 25 MG Cap PO PRN ×2 (10:00→19:02)
[2020-10-17] MEDS: Furosemide 20 MG Tab*PT OWN MED PO SCH (18:59)
[2020-10-17] MEDS: Albuterol/Ipratropium 3.0-0.5 MG/3 ML Neb Soln NEB SCH (19:47)
[2020-10-17] MEDS: Acetaminophen/Diphenhydramine 500-25 MG Tab PO SCH (19:48)
[2020-10-18] MEDS: OMEPRAZOLE 40 MG PO SCH ×2 (06:12→18:22)
[2020-10-18] MEDS: FORMOTEROL 20 MCG/2 ML SCH ×2 (06:13→20:52)
[2020-10-18] MEDS: [UNRECOGNIZED DRUG - OTHER] PO PRN ×2 (09:45→18:25)
[2020-10-18] MEDS: diphenhydrAMINE 25 MG Cap PO PRN ×2 (09:45→18:21)
[2020-10-18] MEDS: MULTIVITAMIN PO SCH (09:45)
[2020-10-18] MEDS: Aspirin 81 MG Tab.EC**OWN MED PO SCH (09:49)
[2020-10-18] MEDS: CARVEDILOL 12.5 MG PO SCH ×2 (09:49→18:21)
[2020-10-18] MEDS: Lisinopril 10 MG Tab (OWN SUPPLY) PO SCH (09:50)
[2020-10-18] MEDS: Furosemide 20 MG Tab PO SCH (09:50)
[2020-10-18] MEDS: BUDESONIDE 0.5 MG/2 ML NEB SCH ×2 (09:51→20:55)
[2020-10-18] MEDS: Acetaminophen 500 MG Tab PO PRN (14:25)
[2020-10-18] MEDS: Albuterol HFA 18 Gm Inhaler INH PRN (14:31)
[2020-10-18] MEDS ORDERED: guaiFENesin 600 MG Tab.ER PO PRN (15:33)
[2020-10-18] MEDS: Furosemide 20 MG Tab*PT OWN MED PO SCH (18:22)
[2020-10-18] MEDS: Acetaminophen/Diphenhydramine 500-25 MG Tab PO SCH (20:50)
[2020-10-18] MEDS: Albuterol/Ipratropium 3.0-0.5 MG/3 ML Neb Soln NEB SCH (20:52)
[2020-10-19] MEDS: OMEPRAZOLE 40 MG PO SCH ×2 (06:29→18:04)
[2020-10-19] MEDS: FORMOTEROL 20 MCG/2 ML SCH ×2 (06:29→20:06)
[2020-10-19] MEDS: Aspirin 81 MG Tab.EC**OWN MED PO SCH (10:10)
[2020-10-19] MEDS: MULTIVITAMIN PO SCH (10:10)
[2020-10-19] MEDS: diphenhydrAMINE 25 MG Cap PO PRN (10:11)
[2020-10-19] MEDS: [UNRECOGNIZED DRUG - OTHER] PO PRN ×2 (10:11→18:05)
[2020-10-19] MEDS: CARVEDILOL 12.5 MG PO SCH ×2 (10:12→18:03)
[2020-10-19] MEDS: Furosemide 20 MG Tab PO SCH (10:12)
[2020-10-19] MEDS: Lisinopril 10 MG Tab (OWN SUPPLY) PO SCH (10:13)
[2020-10-19] MEDS: Magnesium Hydroxide 400 MG/5 ML Susp 30 ML Cup PO SCH (10:15)
[2020-10-19] MEDS: BUDESONIDE 0.5 MG/2 ML NEB SCH ×2 (10:16→20:06)
[2020-10-19] MEDS: Furosemide 20 MG Tab*PT OWN MED PO SCH (18:04)
[2020-10-19] MEDS: Acetaminophen/Diphenhydramine 500-25 MG Tab PO SCH (20:05)
[2020-10-19] MEDS: Albuterol/Ipratropium 3.0-0.5 MG/3 ML Neb Soln NEB SCH (20:06)
[2020-10-20] MEDS: Acetaminophen 500 MG Tab PO PRN ×3 (05:08→20:38)
[2020-10-20] MEDS: OMEPRAZOLE 40 MG PO SCH ×2 (06:14→18:52)
[2020-10-20] MEDS: FORMOTEROL 20 MCG/2 ML SCH ×2 (06:15→20:27)
[2020-10-20] MEDS: [UNRECOGNIZED DRUG - OTHER] PO PRN ×2 (07:55→18:51)
[2020-10-20] MEDS: Aspirin 81 MG Tab.EC**OWN MED PO SCH (07:56)
[2020-10-20] MEDS: CARVEDILOL 12.5 MG PO SCH ×2 (07:56→18:51)
[2020-10-20] MEDS: Furosemide 20 MG Tab PO SCH (07:57)
[2020-10-20] MEDS: Lisinopril 10 MG Tab (OWN SUPPLY) PO SCH (07:57)
[2020-10-20] MEDS: MULTIVITAMIN PO SCH (07:58)
[2020-10-20] MEDS: BUDESONIDE 0.5 MG/2 ML NEB SCH ×2 (07:59→20:28)
[2020-10-20] MEDS: diphenhydrAMINE 25 MG Cap PO PRN (07:59)
[2020-10-20] MEDS: Magnesium Hydroxide 400 MG/5 ML Susp 30 ML Cup PO SCH (11:17)
[2020-10-20] MEDS: Furosemide 20 MG Tab*PT OWN MED PO SCH (18:52)
[2020-10-20] MEDS: Albuterol/Ipratropium 3.0-0.5 MG/3 ML Neb Soln NEB SCH (20:27)
[2020-10-20] MEDS: Acetaminophen/Diphenhydramine 500-25 MG Tab PO SCH ×2 (20:28→20:38)
[2020-10-20] MEDS: Acetaminophen/Diphenhydramine 500-25 MG Tab PO PRN (22:30)
[2020-10-21] MEDS: OMEPRAZOLE 40 MG PO SCH ×2 (06:27→17:09)
[2020-10-21] MEDS: FORMOTEROL 20 MCG/2 ML SCH ×2 (07:26→19:54)
[2020-10-21] MEDS: BUDESONIDE 0.5 MG/2 ML NEB SCH ×2 (07:27→19:54)
[2020-10-21] MEDS: CARVEDILOL 12.5 MG PO SCH ×2 (08:24→17:09)
[2020-10-21] MEDS: Aspirin 81 MG Tab.EC**OWN MED PO SCH (08:25)
[2020-10-21] MEDS: Furosemide 20 MG Tab PO SCH (08:27)
[2020-10-21] MEDS: Magnesium Hydroxide 400 MG/5 ML Susp 30 ML Cup PO SCH (08:28)
[2020-10-21] MEDS: MULTIVITAMIN PO SCH (08:28)
[2020-10-21] MEDS: Lisinopril 10 MG Tab (OWN SUPPLY) PO SCH (08:29)
[2020-10-21] MEDS: Acetaminophen 500 MG Tab PO PRN ×2 (09:41→17:07)
--- NOTE | 2020-10-21 17:01 | PN ---
Progress Note for SARAI CHAN Date: 10/21/2020 Room #: VM.222 SUBJECTIVE: This is a 75-year-old recovering on swing bed after COPD exacerbation and COVID infection as well as GI bleeding at [facility] [place]. The patient did come here more on comfort measures, but has been quite stable. We did increase his Lasix on the 12th, but he continues to have leg swelling. His breathing has been about the same, but he has not been coughing as much. He is feeling a little stronger. He would actually like to return home. His family is in support of that. He is denying pain. He did request to start on a multivitamin and the patient has been in good spirits. OBJECTIVE: Vital Signs: His temperature is 98, pulse 66, blood pressure 128/67, respiratory rate 25, O2 of 98% on 4 L. General: He is in no acute distress. Heart: Regularly irregular. Lungs: Lung sounds are decreased, but no crackles or wheezes. Abdomen: Nondistended. Extremities: Warm and dry. Still has 2+ edema to the ankles. Mental Status: Alert and orientated x3. ASSESSMENT: 1. Edema with known history of heart failure, chronic systolic EF 40%. We will repeat lab work tomorrow. Increase Lasix to 40 b.i.d. if able. We will try some HOLLIS stockings tonight. 2. Severe chronic obstructive pulmonary disease. He is on nebulizers. No exacerbation. 3. COVID-19, resolved and recovered. 4. Hypocalcemia, resolved. 5. Chronic anemia, hemoglobins have been stable. There has been no bleeding. 6. Atrial fibrillation, rate controlled, off anticoagulation due to gastrointestinal bleeding. 7. Lung cancer, he is not pursuing further treatments. Could consider hospice if he discharges home. 8. Deconditioning due to recent hospital admissions. 9. Coronary artery disease with ischemic cardiomyopathy. 10.History of transient ischemic attacks. He restarted ASA. PLAN: The patient will be upgraded to skilled cares to have skilled PT and OT to see if he is strong enough to return home with support. He is hoping to go home as soon as next week. MKA: 10/21/2020 16:40:45 MODL: 10/21/2020 16:52:56 /[id number] CORRINA
[2020-10-21] MEDS: Furosemide 20 MG Tab*PT OWN MED PO SCH (17:09)
[2020-10-21] MEDS: diphenhydrAMINE 25 MG Cap PO PRN (19:00)
[2020-10-21] MEDS: Acetaminophen/Diphenhydramine 500-25 MG Tab PO SCH (19:54)
[2020-10-21] MEDS: Albuterol/Ipratropium 3.0-0.5 MG/3 ML Neb Soln NEB SCH (19:54)
[2020-10-22] MEDS: OMEPRAZOLE 40 MG PO SCH ×2 (06:08→16:56)
[2020-10-22] MEDS: FORMOTEROL 20 MCG/2 ML SCH ×2 (07:08→19:41)
[2020-10-22] MEDS: BUDESONIDE 0.5 MG/2 ML NEB SCH ×2 (07:08→19:41)
[2020-10-22 07:16] LABS: CHLORIDE,CL 99 mmol/L (98-107); SODIUM,NA 137 mmol/L (136-145)
[2020-10-22 07:25] LABS: ANION GAP 8.6 mmol/L (5-15)
[2020-10-22] MEDS: CARVEDILOL 12.5 MG PO SCH ×2 (08:45→17:00)
[2020-10-22] MEDS: MULTIVITAMIN PO SCH (08:46)
[2020-10-22] MEDS: Lisinopril 10 MG Tab (OWN SUPPLY) PO SCH (08:46)
[2020-10-22] MEDS: Aspirin 81 MG Tab.EC**OWN MED PO SCH (08:46)
[2020-10-22] MEDS: Furosemide 20 MG Tab PO SCH (08:47)
[2020-10-22] MEDS: Furosemide 40 MG Tab PO SCH ×2 (08:47→16:57)
[2020-10-22] MEDS: Acetaminophen 500 MG Tab PO PRN (19:42)
[2020-10-22] MEDS: Albuterol/Ipratropium 3.0-0.5 MG/3 ML Neb Soln NEB SCH (19:42)
[2020-10-22] MEDS: Acetaminophen/Diphenhydramine 500-25 MG Tab PO SCH (21:42)
[2020-10-23] MEDS: FORMOTEROL 20 MCG/2 ML SCH (06:24)
[2020-10-23] MEDS: OMEPRAZOLE 40 MG PO SCH (06:25)
[2020-10-23] MEDS: Aspirin 81 MG Tab.EC**OWN MED PO SCH (07:39)
[2020-10-23] MEDS: [UNRECOGNIZED DRUG - OTHER] PO PRN ×2 (07:39→18:12)
[2020-10-23] MEDS: Lisinopril 10 MG Tab (OWN SUPPLY) PO SCH (07:40)
[2020-10-23] MEDS: CARVEDILOL 12.5 MG PO SCH (07:49)
[2020-10-23] MEDS: diphenhydrAMINE 25 MG Cap PO PRN (07:50)
[2020-10-23] MEDS: BUDESONIDE 0.5 MG/2 ML NEB SCH (07:51)
[2020-10-23] MEDS: MULTIVITAMIN PO SCH (07:52)
[2020-10-23] MEDS ORDERED: Furosemide 40 MG Tab PO SCH ×2 (08:00)
[2020-10-23] MEDS: Furosemide 40 MG Tab PO SCH ×2 (08:05→18:12)
[2020-10-23] MEDS: Magnesium Hydroxide 400 MG/5 ML Susp 30 ML Cup PO SCH (08:10)
[2020-10-23] MEDS: Omeprazole 20 MG Cap.CR PO SCH (18:12)
[2020-10-23] MEDS: Budesonide 0.5 MG/2 ML Neb Susp NEB SCH (20:15)
[2020-10-23] MEDS: Arformoterol 15 MCG/2 ML Neb Soln NEB SCH (20:15)
[2020-10-23] MEDS: Acetaminophen 500 MG Tab PO PRN (20:17)
[2020-10-23] MEDS: Acetaminophen/Diphenhydramine 500-25 MG Tab PO SCH (22:57)
[2020-10-23] MEDS: Albuterol/Ipratropium 3.0-0.5 MG/3 ML Neb Soln NEB SCH (22:58)
[2020-10-24] MEDS: Arformoterol 15 MCG/2 ML Neb Soln NEB SCH ×2 (06:34→20:21)
[2020-10-24] MEDS: Omeprazole 20 MG Cap.CR PO SCH ×2 (06:35→17:28)
[2020-10-24] MEDS: [UNRECOGNIZED DRUG - OTHER] PO PRN ×2 (10:08→17:28)
[2020-10-24] MEDS: Aspirin 81 MG Tab.EC PO SCH (10:09)
[2020-10-24] MEDS: MULTIVITAMIN PO SCH (10:09)
[2020-10-24] MEDS: Lisinopril 5 MG Tab PO SCH (10:09)
[2020-10-24] MEDS: diphenhydrAMINE 25 MG Cap PO PRN (10:09)
[2020-10-24] MEDS: Furosemide 40 MG Tab PO SCH ×2 (10:09→17:28)
[2020-10-24] MEDS: Digoxin 125 MCG Tab PO SCH (10:10)
[2020-10-24] MEDS: Budesonide 0.5 MG/2 ML Neb Susp NEB SCH ×2 (10:10→20:21)
[2020-10-24] MEDS: Albuterol/Ipratropium 3.0-0.5 MG/3 ML Neb Soln NEB PRN (13:14)
[2020-10-24] MEDS: Acetaminophen 500 MG Tab PO PRN (20:22)
[2020-10-24] MEDS: Acetaminophen/Diphenhydramine 500-25 MG Tab PO SCH (21:00)
[2020-10-24] MEDS: Albuterol/Ipratropium 3.0-0.5 MG/3 ML Neb Soln NEB SCH (21:00)
[2020-10-25] MEDS: Omeprazole 20 MG Cap.CR PO SCH ×3 (05:47→16:36)
[2020-10-25] MEDS: Acetaminophen 500 MG Tab PO PRN ×2 (05:50→16:37)
[2020-10-25] MEDS: Arformoterol 15 MCG/2 ML Neb Soln NEB SCH ×2 (07:17→19:47)
[2020-10-25] MEDS: Budesonide 0.5 MG/2 ML Neb Susp NEB SCH ×2 (07:17→19:47)
[2020-10-25] MEDS: Albuterol/Ipratropium 3.0-0.5 MG/3 ML Neb Soln NEB PRN ×2 (08:25→16:43)
[2020-10-25] MEDS: Aspirin 81 MG Tab.EC PO SCH (08:38)
[2020-10-25] MEDS: Lisinopril 5 MG Tab PO SCH (08:38)
[2020-10-25] MEDS: Magnesium Hydroxide 400 MG/5 ML Susp 30 ML Cup PO SCH (08:42)
[2020-10-25] MEDS: Furosemide 40 MG Tab PO SCH ×2 (08:43→16:37)
[2020-10-25] MEDS: Digoxin 125 MCG Tab PO SCH (08:45)
[2020-10-25] MEDS: MULTIVITAMIN PO SCH (08:45)
--- NOTE | 2020-10-25 17:44 | PN ---
Progress Note for SARAI CHAN Date: 10/25/2020 Room #: VM.222 SUBJECTIVE: This is a 75-year-old on swing bed coming from a hospital stay at [facility] from 09/22/2020 through 09/26/2020 for a COPD exacerbation with COVID and he has a presumed stage III lung cancer by imaging, but has refused further workup. The patient was initially coming more for comfort cares, but he has done well. He has improved. He has had no further GI bleeding and has been up and working with therapies with a goal of returning home. The patient is on oxygen 3 to 4 L. His oxygen was picked up while he was in the hospital and he needs to be re-qualified. Recommendations were given by me for him to consider going home on hospice and he is interested in that as he is wanting to go on home health, but not wanting to really participate in therapies. OBJECTIVE: Vital Signs: Today, his pulse was only 60 this morning, blood pressure 112/68, this afternoon 94/64, O2 of 97% on 4 L. General: He is in no acute distress. Extremities: Checked and he has the support stockings in place which has helped his edema. Mental Status: Alert and orientated x3. ASSESSMENT: 1. Probable stage III lung cancer. Discussed with patient meeting with hospice and likely discharge home with hospice. He would like me to update his son, Yazan which I did. Plan for potential discharge on Wednesday or Wednesday with hospice. 2. Edema due to chronic systolic heart failure, EF of 40%. Nurse asked about holding Lasix unless the blood pressure goes under 80. I do not think that is needed. He is asymptomatic. 3. Atrial fibrillation, rate controlled. I will decrease digoxin to every other day. 4. Severe chronic obstructive pulmonary disease. He is on nebulizers and oxygen. 5. Obstructive sleep apnea. He is on CPAP. 6. Chronic anemia. Hemoglobins have been stable. 7. Deconditioning with multiple recent hospital admissions. He is improving with therapies to the point where he is able to be at home independent. 8. Coronary artery disease with ischemic cardiomyopathy. 9. History of transient ischemic attacks. He restarted aspirin on his own. He has been off Coumadin due to recurrent bleeding. PLAN: The patient will continue with swing bed cares and arrangements are being made for discharge home next week with either home health or potentially hospice. His son will be coming this weekend to visit with him further. Decrease digoxin. Lab work on Wednesday. He is also on Coreg. MKA: 10/25/2020 17:11:21 MODL: 10/25/2020 17:34:56 /[id number]
[2020-10-25] MEDS: Menthol/Methyl Salicylate 85 GM Tube TOP PRN (17:52)
[2020-10-25] MEDS: diphenhydrAMINE 25 MG Cap PO PRN (18:34)
[2020-10-25] MEDS: Albuterol/Ipratropium 3.0-0.5 MG/3 ML Neb Soln NEB SCH (19:47)
[2020-10-25] MEDS: Acetaminophen/Diphenhydramine 500-25 MG Tab PO SCH (19:48)
[2020-10-26] MEDS: diphenhydrAMINE 25 MG Cap PO PRN (04:58)
[2020-10-26] MEDS: Omeprazole 20 MG Cap.CR PO SCH ×2 (06:27→16:29)
[2020-10-26] MEDS: Arformoterol 15 MCG/2 ML Neb Soln NEB SCH ×2 (07:00→20:29)
[2020-10-26] MEDS: Budesonide 0.5 MG/2 ML Neb Susp NEB SCH ×2 (07:00→20:30)
[2020-10-26] MEDS: Aspirin 81 MG Tab.EC PO SCH (07:44)
[2020-10-26] MEDS: MULTIVITAMIN PO SCH (07:44)
[2020-10-26] MEDS: Furosemide 40 MG Tab PO SCH ×2 (07:45→16:30)
[2020-10-26] MEDS: Digoxin 125 MCG Tab PO SCH (07:45)
[2020-10-26] MEDS: Lisinopril 5 MG Tab PO SCH (07:45)
[2020-10-26] MEDS: Acetaminophen 500 MG Tab PO PRN ×2 (11:53→20:30)
[2020-10-26] MEDS: Albuterol/Ipratropium 3.0-0.5 MG/3 ML Neb Soln NEB PRN (11:54)
[2020-10-26] MEDS: Albuterol/Ipratropium 3.0-0.5 MG/3 ML Neb Soln NEB SCH (20:30)
[2020-10-26] MEDS: Acetaminophen/Diphenhydramine 500-25 MG Tab PO SCH (20:32)
[2020-10-27] MEDS: Arformoterol 15 MCG/2 ML Neb Soln NEB SCH ×2 (07:08→20:13)
[2020-10-27] MEDS: Budesonide 0.5 MG/2 ML Neb Susp NEB SCH ×2 (07:08→20:13)
[2020-10-27] MEDS: Omeprazole 20 MG Cap.CR PO SCH ×2 (07:50→16:24)
[2020-10-27] MEDS: Lisinopril 5 MG Tab PO SCH (08:11)
[2020-10-27] MEDS: Magnesium Hydroxide 400 MG/5 ML Susp 30 ML Cup PO SCH (08:11)
[2020-10-27] MEDS: Aspirin 81 MG Tab.EC PO SCH (08:11)
[2020-10-27] MEDS: Menthol/Methyl Salicylate 85 GM Tube TOP PRN ×2 (08:12→16:28)
[2020-10-27] MEDS: Furosemide 40 MG Tab PO SCH ×2 (08:12→16:24)
[2020-10-27] MEDS: MULTIVITAMIN PO SCH (08:12)
[2020-10-27] MEDS: Albuterol/Ipratropium 3.0-0.5 MG/3 ML Neb Soln NEB PRN (13:19)
[2020-10-27] MEDS: Acetaminophen 500 MG Tab PO PRN (16:25)
[2020-10-27] MEDS: diphenhydrAMINE 25 MG Cap PO PRN (18:43)
[2020-10-27] MEDS: Albuterol/Ipratropium 3.0-0.5 MG/3 ML Neb Soln NEB SCH (20:13)
[2020-10-27] MEDS: Acetaminophen/Diphenhydramine 500-25 MG Tab PO SCH (20:13)
[2020-10-28] MEDS: Albuterol/Ipratropium 3.0-0.5 MG/3 ML Neb Soln NEB PRN ×2 (03:43→14:04)
[2020-10-28] MEDS: Acetaminophen 500 MG Tab PO PRN (04:29)
[2020-10-28] MEDS: Omeprazole 20 MG Cap.CR PO SCH (06:12)
[2020-10-28] MEDS: Budesonide 0.5 MG/2 ML Neb Susp NEB SCH (06:13)
[2020-10-28] MEDS: Arformoterol 15 MCG/2 ML Neb Soln NEB SCH (06:13)
[2020-10-28] MEDS: [UNRECOGNIZED DRUG - OTHER] PO PRN (08:09)
[2020-10-28] MEDS: MULTIVITAMIN PO SCH (08:09)
[2020-10-28] MEDS: Digoxin 125 MCG Tab PO SCH (08:10)
[2020-10-28] MEDS: Furosemide 40 MG Tab PO SCH (08:10)
[2020-10-28] MEDS: diphenhydrAMINE 25 MG Cap PO PRN (08:10)
[2020-10-28] MEDS: Aspirin 81 MG Tab.EC PO SCH (08:11)
[2020-10-28] MEDS: Lisinopril 5 MG Tab PO SCH (08:11)
--- NOTE | 2020-10-28 14:57 | DISCH ---
PRIMARY DISCHARGE DIAGNOSES: 1. Coronavirus disease 2019 infection with a chronic obstructive pulmonary disease exacerbation in September. 2. Probable stage III lung cancer. The patient is declining further workup. 3. Chronic systolic heart failure EF 40 % with shortness of breath and lower extremity edema. 4. Chronic hypoxic respiratory failure, on chronic oxygen. 5. Severe chronic obstructive pulmonary disease. 6. Atrial fibrillation, rate controlled. 7. Chronic anemia with recent gastrointestinal bleeding. His anticoagulation has been discontinued, but he wanted to start taking aspirin again per himself. 8. Deconditioning due to multiple recurrent admissions. 9. Coronary artery disease with ischemic cardiomyopathy. 10.History of transient ischemic attacks. 11.Essential hypertension. 12. Moderate malnutrition due to recurrent illnesses and likely underlying cancer REASON FOR ADMISSION: On the date of admission, this 75-year-old gentleman had been hospitalized at [facility] from 09/22/2020 through 09/26/2020 on this admission due to recent COVID-19 and [id number] hypoxic and hypercapnic respiratory failure. He does have a history of smoking, but had quit about 4 years ago. He was getting prednisone while in the hospital or Solu-Medrol, but he absolutely refused to take that when he arrived here. He was very weak. He was very short of breath just walking to the bathroom. Goals of care were comfort and discussion was had with him and his son. Did talk about potentially having him see PT just for some restorative therapy and the patient was interested in this. We had not originally planned on doing followup lab work as he was felt to be a poor candidate for EGD and colonoscopy and just sort of seeing how he did. The patient himself started improving. He had no further bleeding. He asked about getting some lab work to see where his hemoglobin was. I discussed getting some lab work due to also monitoring his potassium and kidney function due to increasing Lasix to help manage his edema. I did increase his Lasix up to 40 mg twice daily which he tolerated. We put on Tubigrips. We decreased his digoxin to every other day due to heart rates down into the 50s and 60s. He had no tachycardia during his stay. He was quite comfortable. He denied any chest pain. His blood pressures improved and were actually running lower, but he was not lightheaded or dizzy. He did start working with Skilled [facility] and they felt that he should be okay to transition home, especially with additional support from hospice. 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 Given his prognosis with the lung cancer and recurrent admissions and goals of care to remain at home, hospice was recommended and a referral was placed, and in fact, a hospice customer development representative is in the room with the patient currently at the time when I spoke with him about today's discharge. Discharge was already planned for today starting last week and I did talk to his son Yazan. DISCHARGE PLANS AND INSTRUCTIONS: He will go home on 3 L of oxygen continuously. Script signed for noninvasive ventilation Trilogy. While here, he received a CPAP but he didn't always use it. He also will go home on the increased 40 mg twice daily of Lasix and he may keep on the Tubigrip stockings at all times since he does really like the way they feel on his legs and it hurts when he takes them off. Otherwise, he will be on digoxin every other day. He should continue his nebulizers. He did not require any pain medications and morphine may be used for respiratory distress, but that will all be handled and managed by hospice. Follow up with primary care if needed, otherwise all care through hospice. PHYSICAL EXAMINATION: Vital Signs: Discharge vitals include a pulse of 80, blood pressure 107/53, O2 of 93% on 3.5 L. General: He is in no acute distress. Heart: Irregularly irregular. Lungs: Lung sounds show decreased air entry, but without crackles or wheezes which were present throughout the beginning of his stay. Extremities: Warm and dry. He still has a solid 1+ edema despite the Tubigrips, but he feels well like he can move his ankles better. 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 Mental Status: He is alert and orientated x3. He is in good spirits. He is cracking jokes. LABORATORY DATA: Discharge lab work was done on 10/22/2020. His white count was 10.1, his hemoglobin was stable at 8.8, platelets 435. Sodium 137, potassium 4.6, chloride 99, bicarb 34, BUN 13, creatinine 1.1, glucose 111, and calcium 8.3. He did receive some Tums here as needed. It was felt that his low calciums were due to low albumin. His diet was encouraged and in fact he was eating 100% of his meals here and doing quite well. MKA: 10/28/2020 11:32:16 MODL: 10/28/2020 14:27:19 /[id number]
== END 2020-10-28 14:35 | disposition hospice, home (50) | DRG 948 ==
LOC: VM.MS 12:23
PROVIDERS: ADMIT Internal Medicine; ATTEND Internal Medicine
DX: R53.1 Weakness (principal); I50.22 Chronic systolic (congestive) heart failure; J96.11 Chronic respiratory failure with hypoxia; E44.0 Moderate protein-calorie malnutrition; C34.90 Malignant neoplasm of unspecified part of unspecified bronchus or lung; I13.0 Hypertensive heart and chronic kidney disease with heart failure and stage 1 through stage 4 chronic kidney disease, or unspecified chronic kidney disease; R53.81 Other malaise; Z86.16 Personal history of COVID-19; J44.9 Chronic obstructive pulmonary disease, unspecified; Z99.81 Dependence on supplemental oxygen; I48.91 Unspecified atrial fibrillation; D64.9 Anemia, unspecified; Z79.01 Long term (current) use of anticoagulants; I25.10 Atherosclerotic heart disease of native coronary artery without angina pectoris; I25.5 Ischemic cardiomyopathy; Z86.73 Personal history of transient ischemic attack (TIA), and cerebral infarction without residual deficits; Z88.5 Allergy status to narcotic agent; Z88.8 Allergy status to other drugs, medicaments and biological substances; Z79.52 Long term (current) use of systemic steroids; Z79.899 Other long term (current) drug therapy; N18.30 Chronic kidney disease, stage 3 unspecified; I25.2 Old myocardial infarction; Z86.711 Personal history of pulmonary embolism; Z98.890 Other specified postprocedural states; Z51.5 Encounter for palliative care; G47.33 Obstructive sleep apnea (adult) (pediatric)
CPT/HCPCS: 36415; 80048; 85025; 94640; 94660; 94760; 97110-GP; 97116-GP; 97161-GP; 97163-GP; 97165-GO; 97535-GO; A9270-GY; J7620-GY